=== PATIENT | male | born 1945 | race Two or more races ===

== ENCOUNTER 2020-07-29 19:00 | Inpatient (IN) | payer MEDICARE, BC ==
[~2020-07-29] VITALS: Ht 165.1 cm; Wt 86.6 kg
--- NOTE | 2020-07-29 19:30 | NUR ---
ED Nurse Note: Pt walked in from home. Walks with a steady gait. Vitals are stable on RA. axox4. Pt states that he has had abdominal pain for 5 years. Today his friend told him to go to the ER. Pt has a hx of ca. ER MD at bedside.
[2020-07-29] MEDS ORDERED: Metoclopramide 10mg/2ml Inj IVP ONE ×2 (19:45→22:15)
[2020-07-29] MEDS ORDERED: DiphenhydrAMINE 50mg/ml Inj IVP ONE (19:45)
--- NOTE | 2020-07-29 19:47 | Emergency Room Report ---
History of Present Illness General Chief Complaint: Diarrhea Source: Patient Present Illness HPI Patient presents with abdominal pain, vomiting and nausea and diarrhea. He drove from [place] where he lives to have a new physician who is on staff here. Patient had colon cancer resection 5 years ago. Since that time he has had recurrent pain and diarrhea with intermittent bleeding. He reports the pain 8/10 at this time. The pain is left lower quadrant and constant. Diarrhea is occasionally watery. In addition was mixed with blood today. This is not unusual for the patient. He has been taking loperamide. In the past he has taken a small white pill that helps him more but has run out of these. He states he does have medicine for nausea but thinks it may be Zofran. He had similar pain was evaluated at [facility]. He had labs and CT performed. According to the discharge papers results were normal. Actual CT results were not included. He was not admitted to the hospital but discharged with the diagnosis of chronic pain. The patient denies exposure to Covid positive contacts. No fevers, chills, sore throat, chest pain, palpitations, dysuria, shortness of breath, joint pain, rashes, depression, anxiety, visual changes, dizziness, headache. The patient states that Dr. Kay recommended that he come from [place] for evaluation here. Allergies: Coded Allergies: No Known Allergies (Unverified , 07/29/20) COVID-19 Screening Contact w/high risk pt: No Experienced COVID-19 symptoms?: No COVID-19 Testing performed SALES ORDER CLERK: No Patient History Past Medical History: see triage record, old chart reviewed Past Surgical History: other - colon resection Social History: Denies: smoking, alcohol use, drug use Social History Narrative Lives in [place], has an RV that he is staying in in town Reviewed Nursing Documentation: PMH: Agreed; PSxH: Agreed Nursing Documentation-PMH Hx Cancer: Yes - colon, pancreas Review of Systems All Other Systems: negative except mentioned in HPI Physical Exam Vital Signs Date Time Temp Pulse Resp B/P (MAP) Pulse Ox O2 Delivery O2 Flow Rate FiO2 07/29/20 19:18 98.2 70 24 130/75 (93) 98 Room Air Sp02 EP Interpretation: reviewed, normal General Appearance: well appearing, no apparent distress, GCS 15, non-toxic Head: normocephalic Eyes: bilateral eye normal inspection, bilateral eye PERRL, bilateral eye EOMI ENT: moist mucus membranes Neck: supple Respiratory: lungs clear, normal breath sounds Cardiovascular #1: regular rate, rhythm Cardiovascular #2: 2+ radial (R) Gastrointestinal: normal inspection, normal bowel sounds, no mass, non- distended, no guarding, no rebound, tenderness Genitourinary: no CVA tenderness Musculoskeletal: back normal, normal range of motion, gait/station normal Neurologic: alert, oriented x3, grossly normal Psychiatric: mood/affect normal Skin: no rash, warm/dry Medical Decision Making Diagnostic Impression: Primary Impression: Abdominal pain Qualified Codes: R10.32 - Left lower quadrant pain Additional Impressions: Nausea vomiting and diarrhea Acute pancreatitis Qualified Codes: K85.90 - Acute pancreatitis without necrosis or infection, unspecified ER Course Patient presents with left lower quadrant pain, nausea, vomiting and diarrhea with some passing of blood. Differential includes diverticulitis, diverticulosis, urinary tract infection, renal stone, exacerbation of chronic pain amongst others. Patient evaluated with labs, x-ray and EKG. Patient treated with IV hydration Reglan and Benadryl. EKG without injury. Chest x-ray no infiltrates. Abdomen film with surgical clips and 2 metallic shaves outside of the abdomen. White count low. CMP essentially normal with slightly low potassium. Patient initially felt better. Patient insisted on eating some food. Soon after the patient had episodes of retching and uncontrolled vomiting. Patient with repeat episodes of vomiting. Treated with Zofran and Reglan. Elevated lipase. Still soft abdomen. Admit med. Patient not heard of "pancreatitis". Treated for pain. Patient improved. Patient needs admission to the hospital for treatment of vomiting abdominal pain and elevated lipase. Laboratory Tests Test 07/29/20 19:50 07/29/20 22:20 White Blood Count 2.8 K/UL (4.8-10.8) L Red Blood Count 3.90 M/UL (4.70-6.10) L Hemoglobin 10.8 G/DL (14.2-18.0) L Hematocrit 34.2 % (42.0-52.0) L Mean Corpuscular Volume 88 FL (80-99) Mean Corpuscular Hemoglobin 27.8 PG (27.0-31.0) Mean Corpuscular Hemoglobin Concent 31.7 G/DL (32.0-36.0) L Red Cell Distribution Width 16.0 % (11.6-14.8) H Platelet Count 212 K/UL (150-450) Mean Platelet Volume 5.8 FL (6.5-10.1) L Neutrophils (%) (Auto) 70.4 % (45.0-75.0) Lymphocytes (%) (Auto) 13.1 % (20.0-45.0) L Monocytes (%) (Auto) 13.9 % (1.0-10.0) H Eosinophils (%) (Auto) 1.9 % (0.0-3.0) Basophils (%) (Auto) 0.7 % (0.0-2.0) Prothrombin Time 11.2 SEC (9.30-11.50) Prothrombin Time INR 1.0 (0.9-1.1) Activated Partial Thromboplast Time 28 SEC (23-33) Sodium Level 143 MMOL/L (136-145) Potassium Level 3.2 MMOL/L (3.5-5.1) L Chloride Level 111 MMOL/L (98-107) H Carbon Dioxide Level 23 MMOL/L (21-32) Anion Gap 9 mmol/L (5-15) Blood Urea Nitrogen 8 mg/dL (7-18) Creatinine 1.1 MG/DL (0.55-1.30) Estimated Glomerular Filtration Rate > 60 mL/min (>60) Glucose Level 125 MG/DL (74-106) H Calcium Level 8.5 MG/DL (8.5-10.1) Total Bilirubin 0.2 MG/DL (0.2-1.0) Aspartate Amino Transferase (AST) 33 U/L (15-37) Alanine Aminotransferase (ALT) 32 U/L (12-78) Alkaline Phosphatase 256 U/L (46-116) H Total Protein 6.1 G/DL (6.4-8.2) L Albumin 2.7 G/DL (3.4-5.0) L Globulin 3.4 g/dL Albumin/Globulin Ratio 0.8 (1.0-2.7) L Lipase 1927 U/L (73-393) H Urine Color Pending Urine Appearance Pending Urine pH Pending Urine Specific Clarence Pending Urine Protein Pending Urine Glucose (UA) Pending Urine Ketones Pending Urine Blood Pending Urine Nitrite Pending Urine Bilirubin Pending Urine Urobilinogen Pending Urine Leukocyte Esterase Pending EKG Diagnostic Results Rate: bradycardiac Rhythm: NSR ST Segments: no acute changes Rhythm Strip Diag. Results EP Interpretation: yes Rhythm: NSR, no PVC's, no ectopy Chest X-Ray Diagnostic Results Chest X-Ray Diagnostic Results : Chest X-Ray Ordered: Yes # of Views/Limited/Complete: 1 View Indication: Other EP Interpretation: Yes Interpretation: no consolidation, no effusion, no pneumothorax Impression: No acute disease Electronically Signed by: Electronically signed by Farhan Jacinto MD Other X-Ray Diagnostic Results Other X-Ray Diagnostic Results : X-Ray ordered: Abdomen # of Views/Limited Vs Complete: 3 View Indication: Other EP Interpretation: Yes Interpretation: nonspecific bowel gas, no sbo, other - Surgical clips Impression: No acute disease Electronically Signed by: Electronically signed by Farhan Jacinto MD Last Vital Signs Date Time Temp Pulse Resp B/P (MAP) Pulse Ox O2 Delivery O2 Flow Rate FiO2 07/29/20 23:45 Room Air 07/29/20 23:19 97.9 50 16 112/63 (79) 97 Status: improved Disposition: ADMITTED INPATIENT Condition: Serious Farhan Jacinto MD Jul 29, 2020 19:47
[2020-07-29 19:57] VITALS: BP 132/76
[2020-07-29 20:18] LABS: HEMATOCRIT 34.2 % (42.0-52.0); HEMOGLOBIN 10.8 G/DL (14.2-18.0); MEAN CORPUSCULAR VOLUME 88 FL (80-99); PLATELET COUNT 212 K/UL (150-450); WHITE BLOOD COUNT 2.8 K/UL (4.8-10.8)
[2020-07-29 20:20] LABS: BASOPHILS % (AUTO) 0.7 % (0.0-2.0); EOSINOPHILS % (AUTO) 1.9 % (0.0-3.0); LYMPHOCYTES % (AUTO) 13.1 % (20.0-45.0); MONOCYTES % (AUTO) 13.9 % (1.0-10.0); NEUTROPHILS % (AUTO) 70.4 % (45.0-75.0)
[2020-07-29 20:28] LABS: BLOOD UREA NITROGEN 8 mg/dL (7-18); POTASSIUM 3.2 MMOL/L (3.5-5.1)
--- NOTE | 2020-07-29 20:33 | NUR ---
ED Nurse Note: Pt state that he is unable to urinate. ER MD aware.
[2020-07-29 20:34] LABS: ALBUMIN 2.7 G/DL (3.4-5.0); ALBUMIN/GLOBULIN RATIO 0.8 (1.0-2.7); ALKALINE PHOSPHATASE 256 U/L (46-116)
[2020-07-29 21:02] LABS: ANION GAP 9 mmol/L (5-15); CALCIUM 8.5 MG/DL (8.5-10.1); CARBON DIOXIDE 23 MMOL/L (21-32); CHLORIDE 111 MMOL/L (98-107); CREATININE 1.1 MG/DL (0.55-1.30); SODIUM 143 MMOL/L (136-145)
[2020-07-29 21:07] LABS: ALANINE AMINOTRANSFERASE 32 U/L (12-78); ASPARTATE AMINO TRANSFERASE 33 U/L (15-37); BILIRUBIN,TOTAL 0.2 MG/DL (0.2-1.0)
[2020-07-29] MEDS ORDERED: Morphine Sulfate 4mg/ml Inj (IV USE ONLY) IVP ONE (21:30)
--- NOTE | 2020-07-29 22:28 | NUR ---
ED Nurse Note: Report given to Harshal WADE for M/S 410-2
--- NOTE | 2020-07-29 22:31 | NUR ---
ED Nurse Note: Unable to do med recon. Patient doesnt know the dosage of meds hes taking
[2020-07-29 22:50] LABS: APPEARANCE,URINE CLEAR; BILIRUBIN, URINE NEGATIVE (NEGATIVE); COLOR,URINE PALE YELLOW; GLUCOSE, URINE (UA) 4+ (NEGATIVE); KETONES,URINE NEGATIVE (NEGATIVE); LEUKOCYTE ESTERASE ,URINE NEGATIVE (NEGATIVE); NITRITE,URINE NEGATIVE (NEGATIVE); PH,URINE 5 (4.5-8.0); PROTEIN,URINE NEGATIVE (NEGATIVE); UROBILINOGEN,URINE NORMAL MG/DL (0.0-1.0)
--- NOTE | 2020-07-29 22:54 | History & Physical ---
History and Physical History & Physicial Antoine Kay MD Jul 29, 2020 22:54
--- NOTE | 2020-07-29 23:08 | NUR ---
TRANSFER TO FLOOR: Patient transferred to as ordered, per ER MD. Report given to Marvin WADE. Belongings sent with pt. PT is axox4 vitals are stable as documented.
--- NOTE | 2020-07-29 23:09 | NUR ---
NURSE NOTES: Patient came from ER via gurney. Report from Eryn WADE. A&OX4. IV site patent and intact. Skin intact. Belongings were checked. Patient lives in by himself. Bed in lowest position. Call light within reach. Will continue to monitor.
[2020-07-29 23:19] VITALS: BP 112/63
[2020-07-29] MEDS ORDERED: ASPIRIN-LOW81 MG ORAL (23:24)
[2020-07-29] MEDS ORDERED: MOTRIN IB200 M1 PO (23:25)
[2020-07-30] MEDS ORDERED: Omnipaque-300 100ml vial INJ PRN
[2020-07-30] MEDS ORDERED: Morphine Sulfate 2mg/ml Inj(IV/IM USE ONLY) IVP PRN (00:15)
[2020-07-30] MEDS: D5 1/2NS w/KCl 20mEq 1,000 ML IV SCH ×3 (00:43→20:23)
[2020-07-30 04:00] VITALS: BP 114/63
[2020-07-30] MEDS: Heparin 5000 units/ml inj SUBQ SCH ×3 (05:29→21:17)
[2020-07-30 07:00] LABS: HEMOGLOBIN 10.7 G/DL (14.2-18.0); MEAN CORPUSCULAR VOLUME 89 FL (80-99); PLATELET COUNT 206 K/UL (150-450); RED BLOOD COUNT 3.82 M/UL (4.70-6.10); RED CELL DISTRIBUTION WIDTH 16.1 % (11.6-14.8); WHITE BLOOD COUNT 3.1 K/UL (4.8-10.8)
[2020-07-30 07:12] LABS: ANION GAP 8 mmol/L (5-15); BLOOD UREA NITROGEN 8 mg/dL (7-18); CALCIUM 8.6 MG/DL (8.5-10.1); CARBON DIOXIDE 23 MMOL/L (21-32); CHLORIDE 113 MMOL/L (98-107); CHOLESTEROL 122 MG/DL (< 200); CREATININE 0.9 MG/DL (0.55-1.30); HDL CHOLESTEROL 34 MG/DL (40-60); PHOSPHORUS 2.7 MG/DL (2.5-4.9); POTASSIUM 3.7 MMOL/L (3.5-5.1); SODIUM 144 MMOL/L (136-145); TRIGLYCERIDES 41 MG/DL (30-150)
--- NOTE | 2020-07-30 07:35 | NUR ---
NURSE HAND-OFF: Important Events on Shift: Kept NPO. Patient Status: Diet: NPO Pending Orders: CT abdomen Pending Results/Labs: Pending MD notification: Latest Vital Signs: Temperature 97.5 , Pulse 51 , B/P 114 /63 , Respiratory Rate 16 , O2 SAT 96 , Room Air, O2 Flow Rate . Vital Sign Comment: Latest Carreon Fall Score: 20 Fall Risk: Low Risk Safety Measures: Call light Within Reach, Bed Alarm Zone 1, Side Rails Side Rails x2, Bed position Low and Locked. Fall Precautions: Patient Fall Education Report given to Saritha WADE.
--- NOTE | 2020-07-30 07:36 | NUR ---
NURSE NOTES: received report from MAURO Amin. patient in bed. A&Ox4, verbally responsive. no respiratory distress noted on room air. no pain at this time. Given oral contrast for CT abd, Tech will pick the patient around [address] consent signed. IV on LAC 20 running D5 1/2ns 20kcl @100/hr. NPO. skin intact. dry and warm to touch. no decubitus injuries or any other skin issued noted. bed in the lowest position and locked. call light within reach.
[2020-07-30 08:00] VITALS: BP 130/65
--- NOTE | 2020-07-30 08:29 | NUR ---
NURSE NOTES: patient has an order of CT Abd with contrast. CT asking if Doctor wants including Pelvis as well since the patient has a history of colon CA. Notified Dr. Kay and received order of CT Abd/Pel with contrast. order noted and carried out.
--- NOTE | 2020-07-30 08:30 | NUR ---
NURSE NOTES: patient has low heart rates between 46 to 50. asymptomatic. A&Ox 4, no dizziness noted. Notified Dr. mcfadden and is aware, no new order at this time.
--- NOTE | 2020-07-30 08:57 | NUR ---
CASE MANAGEMENT:REVIEW 75 YR OLD MALE DROVE FROM [facility] AND WALKED INTO ER CC: BLOODY STOOL. ABD PAIN. N/V PMH: COLON CANCER RESECTION SI: ACUTE PANCREATITIS 98.3 70 24 130/75 98% ON RA WBC-2.8 K-3.2 LIPASE+1927 IS:IV REGLAN IV PEPCID 1L NS BOLUS IV BENADRYL IV ZOFRAN IV MORPHINE CHEST XRAY ABDOMINAL XRAY : ADMITTED TO MED/SURG PLAN:' NPO CT ABD/PELVIS
--- NOTE | 2020-07-30 10:30 | Diagnostic Imaging Report ---
Procedure: XRAY Chest 1v Reason for study: Chest pain. Comparison films: None. FINDINGS: A single one view chest is obtained. Vascularity is normal. The lung qureshi are clear bilaterally. Cardiac and mediastinal silhouette are within normal limits. CP angles are sharp. The bony thorax appear unremarkable. IMPRESSION: NO ACUTE CARDIOPULMONARY DISEASE.
--- NOTE | 2020-07-30 10:32 | Diagnostic Imaging Report ---
EXAM: XRAY Abdomen 1v HISTORY: Reason For Exam: ABD PAIN COMPARISON: None. TECHNIQUE: Frontal view of the abdomen obtained. FINDINGS: There is a nonobstructed bowel gas pattern. Small surgical clip noted in the pelvis perhaps a dropped clip noted. No definite pathologic calcifications identified. There is no sign of free air. Metallic overlying artifacts noted in the left inguinal region. IMPRESSION: NO SIGN OF ACUTE DISEASE.
--- NOTE | 2020-07-30 10:50 | Diagnostic Imaging Report ---
EXAM: CT CT Abdomen Pelvis w/Contrast INDICATION: Reason For Exam: ABD PAIN. COMPARISON: None TECHNIQUE: Axial images were obtained through the abdomen pelvis with intravenous contrast. Sagittal and coronal reformats are generated. All CT scans at this facility are performed using dose modulation techniques as appropriate to a performed exam including the following: automated exposure control with adjustment of the mA and/or kV according to patient size. RADIATION DOSE: CTDIvol: 9.4 mGy DLP: 517.2 mGy-cm Dose information generated by the CT scanner is available in PACS. FINDINGS: Mild dependent atelectasis noted in both lung bases. There are several low densities identified in the caudate and right lobe of the liver. A few are circumscribed and low density resembling cysts but there are several in segment 6 and segment 7 of the liver which are not cystic. Patient does have known history of colon cancer and metastatic hepatic lesions is suspected. There is some low-density scalloping of the lateral margin right lobe of liver on images 22-25 which may reflect serosal disease as well. The spleen is homogeneous. Gallbladder is without sludge or stone and there is no wall thickening. Pancreas is mostly homogeneous. There is a focus of coarse calcification at the pancreatic head. Adrenals are normal in morphology. Multiple bilateral exophytic cysts of the kidneys noted. Postoperative changes noted near the GE junction. Small bowel loops are nondistended. Patient is status post colectomy. Anastomotic sutures noted in the region of the rectum. There is some soft tissue thickening in the presacral space most likely postoperative changes but focal recurrent tumor cannot be excluded. The appendix is not visualized. There is no free fluid or free air. No pathologic adenopathy demonstrated. Urinary bladder appears unremarkable. There is no suspicious superficial soft tissue or osseous abnormality. IMPRESSION: MULTIPLE LOW-DENSITY LESIONS IN THE LIVER, SOME OF WHICH ARE NOT SIMPLE CYSTS. WITH HISTORY OF COLON CANCER, METASTATIC HEPATIC LESIONS SUSPECTED. COARSE CALCIFICATION AT THE PANCREATIC HEAD. QUESTION HISTORY OF OLD PANCREATITIS. RENAL CYSTS. POSTOPERATIVE CHANGES NEAR THE GE JUNCTION. ALSO APPARENT COLECTOMY. SOME SOFT TISSUE THICKENING IN THE PRESACRAL SPACE MOST LIKELY POSTOPERATIVE CHANGES BUT FOCAL RECURRENT TUMOR CANNOT BE EXCLUDED.
[2020-07-30 12:00] VITALS: BP 124/58
[2020-07-30] MEDS ORDERED: Gadavist 7.5mMol/7.5ml vial IV PRN (12:00)
[2020-07-30 16:00] VITALS: BP 137/74
--- NOTE | 2020-07-30 16:04 | Consultation ---
History of Present Illness General Date patient seen: Jul 30, 2020 Reason for Hospitalization: Diarrhea Present Illness HPI This is a very pleasant 75-year-old male with history of colon cancer status post subtotal colectomy what believed to be a J-pouch approximately 5 years ago with potential diverting ostomy in the past who presented to [facility] complaining abdominal pain nausea vomiting and diarrhea. Patient states that ever since his colectomy he has had diarrhea multiple episodes a day. Intermittently has incontinence as well as he demonstrates soiled adult diapers. States it has been very uncomfortable for him and he has some anal pain from it as well. States he has been to multiple different facilities including [place] for evaluation and side work-up and currently is not been able to receive care. Came to [facility] looking for new physicians to care for him. States he lives in [place] and drove himself over here for this evaluation. States he did complete a course of chemotherapy unsure of how long cannot remember who his cancer doctor was. Otherwise has been eating well and doing well. States his friends are helping him try to find new physicians. In ED identified to have pancreatitis admitted further care and management. Surgery called to evaluate for abdominal pain pancreatitis. Patient seen, patient evaluate, chart reviewed Allergies: Coded Allergies: No Known Allergies (Unverified , 07/29/20) COVID-19 Screening Contact w/high risk pt: No Experienced COVID-19 symptoms?: No Medication History Scheduled Aspirin (Aspirin EC), 81 MG ORAL DAILY, (Reported) Scheduled PRN Ibuprofen (Motrin Ib), 200 MG PO for For Pain, (Reported) Patient History History Provided By: Patient, Medical Record, PMD Healthcare decision maker Resuscitation status Advanced Directive on File Past Medical/Surgical History Past Medical/Surgical History: (1) Acute pancreatitis (2) Abdominal pain (3) Nausea vomiting and diarrhea Review of Systems Review of Symptoms General ROS: no weight loss or fever Psychological ROS: no depression or mood changes, no memory loss Ophthalmic ROS: no visual changes or eye irritation ENT ROS: no nasal congestion, hearing loss, dizziness Allergy and Immunology ROS: no allergic symptoms or urticaria Hematological and Lymphatic ROS: no swollen glands, unusual bleeding or bruising Endocrine ROS: no polyuria, polydipsia, weight changes, temperature intolerance Respiratory ROS: no cough, shortness of breath, or wheezing Cardiovascular ROS: no chest pain or dyspnea on exertion Gastrointestinal ROS: + abdominal pain, bright red blood in stool. Musculoskeletal ROS: no myalgias or arthralgias Neurological ROS: no TIA or stroke symptoms Dermatological ROS: no new or changing skin lesions, rashes or pruritis Physical Exam Physical Exam General appearance: alert, cooperative, no distress, appears stated age Head: Normocephalic, without obvious abnormality, atraumatic Eyes: conjunctivae/corneas clear. PERRL, EOM's intact. Fundi benign Throat: Lips, mucosa, and tongue normal. Teeth and gums normal Neck: supple, symmetrical, trachea midline, no adenopathy, thyroid: not enlarged, symmetric, no tenderness/mass/nodules, no carotid bruit and no JVD Lungs: clear to auscultation bilaterally Heart: regular rate and rhythm, S1, S2 normal, no murmur, click, rub or gallop Abdomen: soft, non-tender. Bowel sounds normal. No masses, no organomegaly Extremities: extremities normal, atraumatic, no cyanosis or edema Pulses: 2+ and symmetric Skin: Skin color, texture, turgor normal. No rashes or lesions Neurologic: Grossly normal Last 24 Hour Vital Signs Date Time Temp Pulse Resp B/P (MAP) Pulse Ox O2 Delivery O2 Flow Rate FiO2 07/30/20 12:00 97.7 62 19 124/58 (80) 97 07/30/20 09:00 Room Air 07/30/20 08:00 97.4 46 18 130/65 (86) 100 07/30/20 04:00 97.5 51 16 114/63 (80) 96 07/29/20 23:45 Room Air 07/29/20 23:31 Room Air 07/29/20 23:19 97.9 50 16 112/63 (79) 97 07/29/20 22:45 98.2 75 16 132/82 99 Room Air 07/29/20 22:02 98.0 07/29/20 19:57 98.0 75 22 132/76 98 Room Air 07/29/20 19:18 98.2 70 24 130/75 (93) 98 Room Air Intake and Output 07/29/20 07/30/20 19:00 07:00 Intake Total 600 ml Output Total 270 ml Balance 330 ml Intake IV Total 600 ml Output Urine Total 270 ml # Voids 1 Laboratory Tests Test 07/29/20 19:50 07/29/20 22:20 07/30/20 05:30 White Blood Count 2.8 K/UL (4.8-10.8) L 3.1 K/UL (4.8-10.8) L Red Blood Count 3.90 M/UL (4.70-6.10) L 3.82 M/UL (4.70-6.10) L Hemoglobin 10.8 G/DL (14.2-18.0) L 10.7 G/DL (14.2-18.0) L Hematocrit 34.2 % (42.0-52.0) L 34.0 % (42.0-52.0) L Mean Corpuscular Volume 88 FL (80-99) 89 FL (80-99) Mean Corpuscular Hemoglobin 27.8 PG (27.0-31.0) 28.1 PG (27.0-31.0) Mean Corpuscular Hemoglobin Concent 31.7 G/DL (32.0-36.0) L 31.6 G/DL (32.0-36.0) L Red Cell Distribution Width 16.0 % (11.6-14.8) H 16.1 % (11.6-14.8) H Platelet Count 212 K/UL (150-450) 206 K/UL (150-450) Mean Platelet Volume 5.8 FL (6.5-10.1) L 6.2 FL (6.5-10.1) L Neutrophils (%) (Auto) 70.4 % (45.0-75.0) % (45.0-75.0) Lymphocytes (%) (Auto) 13.1 % (20.0-45.0) L % (20.0-45.0) Monocytes (%) (Auto) 13.9 % (1.0-10.0) H % (1.0-10.0) Eosinophils (%) (Auto) 1.9 % (0.0-3.0) % (0.0-3.0) Basophils (%) (Auto) 0.7 % (0.0-2.0) % (0.0-2.0) Prothrombin Time 11.2 SEC (9.30-11.50) Prothromb Time International Ratio 1.0 (0.9-1.1) Activated Partial Thromboplast Time 28 SEC (23-33) Sodium Level 143 MMOL/L (136-145) 144 MMOL/L (136-145) Potassium Level 3.2 MMOL/L (3.5-5.1) L 3.7 MMOL/L (3.5-5.1) Chloride Level 111 MMOL/L (98-107) H 113 MMOL/L (98-107) H Carbon Dioxide Level 23 MMOL/L (21-32) 23 MMOL/L (21-32) Anion Gap 9 mmol/L (5-15) 8 mmol/L (5-15) Blood Urea Nitrogen 8 mg/dL (7-18) 8 mg/dL (7-18) Creatinine 1.1 MG/DL (0.55-1.30) 0.9 MG/DL (0.55-1.30) Estimat Glomerular Filtration Rate > 60 mL/min (>60) > 60 mL/min (>60) Glucose Level 125 MG/DL (74-106) H 90 MG/DL (74-106) Calcium Level 8.5 MG/DL (8.5-10.1) 8.6 MG/DL (8.5-10.1) Total Bilirubin 0.2 MG/DL (0.2-1.0) Aspartate Amino Transf (AST/SGOT) 33 U/L (15-37) Alanine Aminotransferase (ALT/SGPT) 32 U/L (12-78) Alkaline Phosphatase 256 U/L (46-116) H Total Protein 6.1 G/DL (6.4-8.2) L Albumin 2.7 G/DL (3.4-5.0) L Globulin 3.4 g/dL Albumin/Globulin Ratio 0.8 (1.0-2.7) L Lipase 1927 U/L (73-393) H 1279 U/L (73-393) H Urine Color Pale yellow Urine Appearance Clear Urine pH 5 (4.5-8.0) Urine Specific [place] 1.015 (1.005-1.035) Urine Protein Negative (NEGATIVE) Urine Glucose (UA) 4+ (NEGATIVE) H Urine Ketones Negative (NEGATIVE) Urine Blood Negative (NEGATIVE) Urine Nitrite Negative (NEGATIVE) Urine Bilirubin Negative (NEGATIVE) Urine Urobilinogen Normal MG/DL (0.0-1.0) Urine Leukocyte Esterase Negative (NEGATIVE) Differential Total Cells Counted 100 Neutrophils % (Manual) 70 % (45-75) Lymphocytes % (Manual) 19 % (20-45) L Monocytes % (Manual) 9 % (1-10) Eosinophils % (Manual) 2 % (0-3) Basophils % (Manual) 0 % (0-2) Band Neutrophils 0 % (0-8) Platelet Estimate Adequate Platelet Morphology Normal Hypochromasia 1+ Anisocytosis 1+ Phosphorus Level 2.7 MG/DL (2.5-4.9) Magnesium Level 2.0 MG/DL (1.8-2.4) Triglycerides Level 41 MG/DL (30-150) Cholesterol Level 122 MG/DL (< 200) LDL Cholesterol 81 mg/dL (<100) HDL Cholesterol 34 MG/DL (40-60) L Cholesterol/HDL Ratio 3.6 (3.3-4.4) Height (Feet): 5 Height (Inches): 7.00 Weight (Pounds): 188 Medications Current Medications Medications (Trade) Dose Ordered Sig/Stacy Route PRN Reason Start Time Stop Time Status Last Admin Dose Admin Acetaminophen (Tylenol) 650 mg Q6H PRN ORAL Temp >100.5 07/30/20 00:15 08/29/20 00:14 Barium Sulfate (Readi-Cat 2) 450 ml NOW PRN ORAL Radiology Procedure 07/30/20 00:00 07/31/20 23:59 Dextrose/ Electrolytes 1,000 ml @ 100 mls/hr Q10H IV 07/30/20 00:15 08/29/20 00:14 07/30/20 10:23 Gadobutrol (Gadavist) 7.5 mmol ONCE PRN IV radiology procedure 07/30/20 12:00 08/01/20 11:59 Heparin Sodium (Porcine) (Heparin 5000 units/ml) 5,000 units EVERY 8 HOURS SUBQ 07/30/20 06:00 09/13/20 05:59 07/30/20 15:21 Iohexol (OMNIPAQUE-300 100ml) 100 ml NOW PRN INJ Radiology Procedure 07/30/20 00:00 07/31/20 23:59 Loperamide HCl (Imodium) 2 mg Q4H PRN ORAL Diarrhea 07/30/20 16:00 08/29/20 15:59 07/30/20 15:54 Morphine Sulfate (Morphine Sulfate) 2 mg Q4H PRN IVP FOR MODERATE PAIN 4 TO 6 07/30/20 00:15 08/06/20 00:14 Morphine Sulfate (Morphine Sulfate) 4 mg Q4H PRN IVP Severe Pain (Pain Scale 7-10) 07/30/20 00:15 08/06/20 00:14 Ondansetron HCl (Zofran) 4 mg Q4H PRN IVP Nausea & Vomiting 07/30/20 00:15 08/29/20 00:14 Assessment/Plan Problem List: (1) Acute pancreatitis Assessment & Plan: 75-year-old male with pancreatitis. No EtOH history. Seems to be having intermittent episodes of pancreatitis as states that the symptoms not as first time and is not a pancreatitis in the past. States that he was told potentially in the past he may have pancreatic cancer but is unaware. Does not have any of his medical records with him and is a poor historian in the details. Elevated lipase trending down with IV fluids. Pain improving. Tolerating diet. No acute surgical intervention planned at this time. Conservative management of medical acute pancreatitis. ICD Codes: K85.90 - Acute pancreatitis without necrosis or infection, unspecified SNOMED: 363848455 Qualifiers: Qualified Codes: K85.90 - Acute pancreatitis without necrosis or infection, unspecified (2) Abdominal pain Assessment & Plan: Patient complaining of abdominal pain likely related to pancreatitis also complaining of pain with multiple episodes of diarrhea and some anal pain. Patient with history of colon cancer status post subtotal colectomy with what seems to be a J-pouch having persistent diarrhea multiple episodes a day followed by potential incontinence as well described by patient. Afebrile hemodynamic stable otherwise okay. Abdominal exam fairly benign. Prior incisions noted well-healed. Patient is interested in having a evaluation for a continent ileostomy. Dr. Kenn Dalton will evaluate patient as patient has researched him prior and has come to this facility to be seen by him as well. CT scan reviewed. Patient has multiple liver lesions that are concerning for potential metastatic disease. MRI ordered. Will need further work-up and management which can be done in outpatient setting by patient's PCP and oncol ogist once patient's pancreatitis is improved. Thank you will follow with recommendations Mild dependent atelectasis noted in both lung bases. There are several low densities identified in the caudate and right lobe of the liver. A few are circumscribed and low density resembling cysts but there are several in segment 6 and segment 7 of the liver which are not cystic. Patient does have known history of colon cancer and metastatic hepatic lesions is suspected. There is some low-density scalloping of the lateral margin right lobe of liver on images 22-25 which may reflect serosal disease as well. The spleen is homogeneous. Gallbladder is without sludge or stone and there is no wall thickening. Pancreas is mostly homogeneous. There is a focus of coarse calcification at the pancreatic head. Adrenals are normal in morphology. Multiple bilateral exophytic cysts of the kidneys noted. Postoperative changes noted near the GE junction. Small bowel loops are nondistended. Patient is status post colectomy. Anastomotic sutures noted in the region of the rectum. There is some soft tissue thickening in the presacral space most likely postoperative changes but focal recurrent tumor cannot be excluded. The appendix is not visualized. There is no free fluid or free air. No pathologic adenopathy demonstrated. Urinary bladder appears unremarkable. There is no suspicious superficial soft tissue or osseous abnormality. IMPRESSION: MULTIPLE LOW-DENSITY LESIONS IN THE LIVER, SOME OF WHICH ARE NOT SIMPLE CYSTS. WITH HISTORY OF COLON CANCER, METASTATIC HEPATIC LESIONS SUSPECTED. COARSE CALCIFICATION AT THE PANCREATIC HEAD. QUESTION HISTORY OF OLD PANCREATITIS. RENAL CYSTS. POSTOPERATIVE CHANGES NEAR THE GE JUNCTION. ALSO APPARENT COLECTOMY. SOME SOFT TISSUE THICKENING IN THE PRESACRAL SPACE MOST LIKELY POSTOPERATIVE CHANGES BUT FOCAL RECURRENT TUMOR CANNOT BE EXCLUDED. ICD Codes: R10.9 - Unspecified abdominal pain SNOMED: 13955609 Qualifiers: Qualified Codes: R10.32 - Left lower quadrant pain (3) Nausea vomiting and diarrhea ICD Codes: R11.2 - Nausea with vomiting, unspecified; R19.7 - Diarrhea, unspecified SNOMED: [id number] Alfredo Phillip Jul 30, 2020 16:04
[2020-07-30] MEDS ORDERED: LOMOTIL TABLET1 EACH ORAL (16:31)
[2020-07-30] MEDS ORDERED: IBUPROFEN600 M1 ORAL (16:31)
[2020-07-30] MEDS ORDERED: CLOTRIMAZOLE15 GM TOPIC (16:31)
[2020-07-30] MEDS ORDERED: ZOLPIDEM TARTRAT5 MG ORAL (16:31)
[2020-07-30] MEDS ORDERED: CHOLESTYRAMINE R5 GM MC (16:31)
[2020-07-30] MEDS ORDERED: FUROSEMIDE40 MG ORAL (16:31)
[2020-07-30] MEDS ORDERED: TRAMADOL HCL50 MG ORAL (16:31)
[2020-07-30] MEDS ORDERED: HYDROCORTISONE-57 GM TP (16:31)
[2020-07-30] MEDS ORDERED: NYSTATIN-TRIAMC15 G2 TP (16:31)
[2020-07-30] MEDS ORDERED: ZOFRAN ODT8 MG ORAL (16:31)
[2020-07-30] MEDS ORDERED: ANECREAM5 GM TP (16:31)
--- NOTE | 2020-07-30 16:43 | Internal Med Progress Note ---
Subjective Physician Name Antoine Kay Attending Physician Antoine Kay MD Current Medications Medications (Trade) Dose Ordered Sig/Stacy Route PRN Reason Start Time Stop Time Status Last Admin Dose Admin Acetaminophen (Tylenol) 650 mg Q6H PRN ORAL Temp >100.5 07/30/20 00:15 08/29/20 00:14 Barium Sulfate (Readi-Cat 2) 450 ml NOW PRN ORAL Radiology Procedure 07/30/20 00:00 07/31/20 23:59 Dextrose/ Electrolytes 1,000 ml @ 100 mls/hr Q10H IV 07/30/20 00:15 08/29/20 00:14 07/30/20 10:23 Gadobutrol (Gadavist) 7.5 mmol ONCE PRN IV radiology procedure 07/30/20 12:00 08/01/20 11:59 Heparin Sodium (Porcine) (Heparin 5000 units/ml) 5,000 units EVERY 8 HOURS SUBQ 07/30/20 06:00 09/13/20 05:59 07/30/20 15:21 Iohexol (OMNIPAQUE-300 100ml) 100 ml NOW PRN INJ Radiology Procedure 07/30/20 00:00 07/31/20 23:59 Loperamide HCl (Imodium) 2 mg Q4H PRN ORAL Diarrhea 07/30/20 16:00 08/29/20 15:59 07/30/20 15:54 Morphine Sulfate (Morphine Sulfate) 2 mg Q4H PRN IVP FOR MODERATE PAIN 4 TO 6 07/30/20 00:15 08/06/20 00:14 Morphine Sulfate (Morphine Sulfate) 4 mg Q4H PRN IVP Severe Pain (Pain Scale 7-10) 07/30/20 00:15 08/06/20 00:14 Ondansetron HCl (Zofran) 4 mg Q4H PRN IVP Nausea & Vomiting 07/30/20 00:15 08/29/20 00:14 Allergies: Coded Allergies: No Known Allergies (Unverified , 07/29/20) Subjective awake, alert, responsive, denies any chest pain or abdominal pain, tolerated oral intake. Objective Last Vital Signs Date Time Temp Pulse Resp B/P (MAP) Pulse Ox O2 Delivery O2 Flow Rate FiO2 07/30/20 16:00 97.5 55 18 137/74 (95) 98 07/30/20 09:00 Room Air Laboratory Tests Test 07/29/20 19:50 07/29/20 22:20 07/30/20 05:30 White Blood Count 2.8 K/UL (4.8-10.8) L 3.1 K/UL (4.8-10.8) L Red Blood Count 3.90 M/UL (4.70-6.10) L 3.82 M/UL (4.70-6.10) L Hemoglobin 10.8 G/DL (14.2-18.0) L 10.7 G/DL (14.2-18.0) L Hematocrit 34.2 % (42.0-52.0) L 34.0 % (42.0-52.0) L Mean Corpuscular Volume 88 FL (80-99) 89 FL (80-99) Mean Corpuscular Hemoglobin 27.8 PG (27.0-31.0) 28.1 PG (27.0-31.0) Mean Corpuscular Hemoglobin Concent 31.7 G/DL (32.0-36.0) L 31.6 G/DL (32.0-36.0) L Red Cell Distribution Width 16.0 % (11.6-14.8) H 16.1 % (11.6-14.8) H Platelet Count 212 K/UL (150-450) 206 K/UL (150-450) Mean Platelet Volume 5.8 FL (6.5-10.1) L 6.2 FL (6.5-10.1) L Neutrophils (%) (Auto) 70.4 % (45.0-75.0) % (45.0-75.0) Lymphocytes (%) (Auto) 13.1 % (20.0-45.0) L % (20.0-45.0) Monocytes (%) (Auto) 13.9 % (1.0-10.0) H % (1.0-10.0) Eosinophils (%) (Auto) 1.9 % (0.0-3.0) % (0.0-3.0) Basophils (%) (Auto) 0.7 % (0.0-2.0) % (0.0-2.0) Prothrombin Time 11.2 SEC (9.30-11.50) Prothromb Time International Ratio 1.0 (0.9-1.1) Activated Partial Thromboplast Time 28 SEC (23-33) Sodium Level 143 MMOL/L (136-145) 144 MMOL/L (136-145) Potassium Level 3.2 MMOL/L (3.5-5.1) L 3.7 MMOL/L (3.5-5.1) Chloride Level 111 MMOL/L (98-107) H 113 MMOL/L (98-107) H Carbon Dioxide Level 23 MMOL/L (21-32) 23 MMOL/L (21-32) Anion Gap 9 mmol/L (5-15) 8 mmol/L (5-15) Blood Urea Nitrogen 8 mg/dL (7-18) 8 mg/dL (7-18) Creatinine 1.1 MG/DL (0.55-1.30) 0.9 MG/DL (0.55-1.30) Estimat Glomerular Filtration Rate > 60 mL/min (>60) > 60 mL/min (>60) Glucose Level 125 MG/DL (74-106) H 90 MG/DL (74-106) Calcium Level 8.5 MG/DL (8.5-10.1) 8.6 MG/DL (8.5-10.1) Total Bilirubin 0.2 MG/DL (0.2-1.0) Aspartate Amino Transf (AST/SGOT) 33 U/L (15-37) Alanine Aminotransferase (ALT/SGPT) 32 U/L (12-78) Alkaline Phosphatase 256 U/L (46-116) H Total Protein 6.1 G/DL (6.4-8.2) L Albumin 2.7 G/DL (3.4-5.0) L Globulin 3.4 g/dL Albumin/Globulin Ratio 0.8 (1.0-2.7) L Lipase 1927 U/L (73-393) H 1279 U/L (73-393) H Urine Color Pale yellow Urine Appearance Clear Urine pH 5 (4.5-8.0) Urine Specific [place] 1.015 (1.005-1.035) Urine Protein Negative (NEGATIVE) Urine Glucose (UA) 4+ (NEGATIVE) H Urine Ketones Negative (NEGATIVE) Urine Blood Negative (NEGATIVE) Urine Nitrite Negative (NEGATIVE) Urine Bilirubin Negative (NEGATIVE) Urine Urobilinogen Normal MG/DL (0.0-1.0) Urine Leukocyte Esterase Negative (NEGATIVE) Differential Total Cells Counted 100 Neutrophils % (Manual) 70 % (45-75) Lymphocytes % (Manual) 19 % (20-45) L Monocytes % (Manual) 9 % (1-10) Eosinophils % (Manual) 2 % (0-3) Basophils % (Manual) 0 % (0-2) Band Neutrophils 0 % (0-8) Platelet Estimate Adequate Platelet Morphology Normal Hypochromasia 1+ Anisocytosis 1+ Phosphorus Level 2.7 MG/DL (2.5-4.9) Magnesium Level 2.0 MG/DL (1.8-2.4) Triglycerides Level 41 MG/DL (30-150) Cholesterol Level 122 MG/DL (< 200) LDL Cholesterol 81 mg/dL (<100) HDL Cholesterol 34 MG/DL (40-60) L Cholesterol/HDL Ratio 3.6 (3.3-4.4) Intake and Output 07/29/20 07/30/20 19:00 07:00 Intake Total 600 ml Output Total 270 ml Balance 330 ml Intake IV Total 600 ml Output Urine Total 270 ml # Voids 1 Objective General: No acute distress, awake and alert HEENT: NCAT, sclera anicteric, PERRL, EOMI. Neck: Supple, no significant jugular venous distention, Lungs: Good inspiratory effort, clear to auscultation bilaterally, no Wheeze or Rales. Heart: Regular rate and rhythm, normal S1/S2, no murmurs/gallops Abdomen: soft, less Epigastric tender, nondistended. Normoactive bowel sounds. / Rectal: Refused and deferred. Extremities: No Cyanosis , clubbing or edema. Neuro: A&O x 3, Able to move all extremities Skin: warm, no rashes or lesions Psych: Normal mood and affect Assessment/Plan Assessment/Plan Acute pancreatitis History of colon cancer status post resection. Liver masses/lesion possible metastatic disease. Plan: Advance diet as tolerated. Follow-up with gastroenterology recommendation. Monitor laboratory. DVT prophylaxis heparin subcu. CODE STATUS is full code. Antoine Kay MD Jul 30, 2020 16:43
--- NOTE | 2020-07-30 16:59 | Diagnostic Imaging Report ---
EXAM: MRI MRI Abdomen wo/w Contrast TECHNIQUE: MR examination of the abdomen includes coronal T1 and fat-suppressed T2, axial T1 in and out of phase spoiled gradient sequences, and T2 sequences with and without fat suppression. Coronal 3-D MRCP sequence also obtained. Following administration of contrast, additional axial and coronal T1 images with fat suppression obtained. CLINICAL HISTORY: Abdominal pain. History of colon cancer and hepatic lesions. COMPARISON: CT abdomen pelvis 07/30/2020 FINDINGS: Findings are similar to that noted on prior CT. There are several lesions identified in the liver. There is only one lesion in the caudate lobe which demonstrates typical appearance of a simple cyst. It is circumscribed with smooth margin and fluid intensity on all sequences without enhancement. The other lesions identified in segments 6 and 7 of the right lobe of the liver are not a simple cyst by MR criteria. No fluid intensity noted on T2 images. They show diminished enhancement compared to adjacent liver parenchyma on postcontrast images. These vary in size with a few which are barely perceptible 2 largest measuring 1.8 cm in segment 6. With the patient's history, these are suspicious for metastatic disease. Slight scalloping of the lateral margin of the right lobe of the liver noted and there is suggestion of slight asymmetric enhancement of the underlying parenchyma noted. Spleen is homogeneous. Tiny gallstone noted layering in the gallbladder. There is no intrahepatic or extrahepatic ductal dilatation. There is slight prominence of the pancreatic duct near the neck region but no discrete parenchymal pancreatic lesion identified. Adrenals are normal. There are multiple bilateral renal cysts. There is no signs of bowel distention. No ascites demonstrated. There is no adenopathy noted. Visualized portions of the lumbar spine appear unremarkable. IMPRESSION: MULTIPLE HEPATIC LESIONS NOTED, ONLY ONE OF WHICH IN THE CAUDATE LOBE APPEARS TO BE A SIMPLE CYST. THE OTHER LESIONS DO NOT MEET MR CRITERIA FOR SIMPLE CYST AND METASTATIC DISEASE SHOULD BE CONSIDERED GIVEN THE PATIENT'S CLINICAL HISTORY. CONSIDER PET/CT FOR CONFIRMATION IF CLINICALLY INDICATED. TINY GALLSTONE. SLIGHT PROMINENCE OF PANCREATIC DUCT BUT NO DISCRETE PANCREATIC LESION SEEN PRESENTLY. RENAL CYSTS.
--- NOTE | 2020-07-30 19:07 | NUR ---
NURSE HAND-OFF: Important Events on Shift:MRI ABD, CT abd/Pelv. IV hydration. diarrhea medication prn Patient Status: stable.chronic diarrhea Diet: full liquid Pending Orders: n/a Pending Results/Labs:n/a Pending MD notification:n/a Latest Vital Signs: Temperature 97.5 , Pulse 55 , B/P 137 /74 , Respiratory Rate 18 , O2 SAT 98 , Room Air, O2 Flow Rate . Vital Sign Comment: stable Latest Carreon Fall Score: 20 Fall Risk: Low Risk Safety Measures: Call light Within Reach, Bed Alarm Zone 1, Side Rails Side Rails x2, Bed position Low and Locked. Fall Precautions: Patient Fall Education Report given to CECY Jay..
[2020-07-30 20:00] VITALS: BP 141/70
--- NOTE | 2020-07-30 20:00 | NUR ---
NURSE NOTES: RECEIVED PATIENT AMBULATING IN ROOM WITH IV POLE, PATIENT ALERT/ORIENTED X4, VERBALLY RESPONSIVE, DENIES PAIN. NO SIGNS AND SYMPTOMS OF ACUTE CARDIO RESPIRATORY DISTRESS/SHORTNESS OF BREATH, DENIES CHEST PAIN, NO EDEMA NOTED. IV INTACT TO LEFT AC/GAUGE 20, TOLERATING IV FLUIDS, NO REDNESS/SWELLING NOTED TO SITE. DENIES DIARRHEA/N/V. ENCOURAGED PATIENT TO UTILIZE CALL LIGHT FOR ASSISTANCE, VERBALIZED UNDERSTANDING, CONTINUE WITH CURRENT PLAN OF CARE. NAD.
[2020-07-30 20:39] VITALS: BP 141/70
--- NOTE | 2020-07-30 20:57 | NUR ---
NURSE NOTES: Received report from Acacia SAM, patient is ambulatory in his room, awake, alert, oriented x4, IV site is clean dry and intact, will continue to monitor for safety and comfort.
[2020-07-30] MEDS: Zolpidem 5mg tab ORAL PRN (21:17)
[2020-07-31 00:14] VITALS: BP 135/74
[2020-07-31 04:00] VITALS: BP 125/65
[2020-07-31] MEDS: D5 1/2NS w/KCl 20mEq 1,000 ML IV SCH ×3 (05:40→23:29)
[2020-07-31] MEDS: Heparin 5000 units/ml inj SUBQ SCH ×3 (05:40→22:45)
--- NOTE | 2020-07-31 07:09 | NUR ---
NURSE HAND-OFF: Important Events on Shift: refused am labs and heparin injection in am Patient Status: Full code Diet:full liquid Pending Orders: Pending Results/Labs: Pending MD notification: Latest Vital Signs: Temperature 98.3 , Pulse 56 , B/P 125 /65 , Respiratory Rate 16 , O2 SAT 98 , Room Air, O2 Flow Rate . Vital Sign Comment: Latest Carreon Fall Score: 20 Fall Risk: Low Risk Safety Measures: Call light Within Reach, Bed Alarm Zone 1, Side Rails Side Rails x2, Bed position Low and Locked. Fall Precautions: Patient Fall Education Report given to Eddie WADE Addendum: 07/31/20 at 0712 by NUBIA URIARTE RN report is given to Saritha WADE
[2020-07-31 08:00] VITALS: BP 145/71
--- NOTE | 2020-07-31 08:03 | NUR ---
NURSE NOTES: received report from MAURO Brooks. patient in bed. A&OX4 verbally responsive. no respiratory distress on room air. no pain at this time. chronic diarrhea. NO N/V. IV on LAC 20g running D5 1/2ns@100/hr. tolerated well with full liquid diet. Patient is ambulatory steady gait. patient refused AM lab. bed in the lowest position and locked. call light within reach, will continue to provide plan of care.
--- NOTE | 2020-07-31 08:48 | NUR ---
RD ASSESSMENT & RECOMMENDATIONS SEE CARE ACTIVITY FOR COMPLETE ASSESSMENT DAILY ESTIMATED NEEDS: Needs based on Pancreatitis 71.8kg 25-30 kcals/kg 1500-3662 total kcals 1-1.5 g protein/kg 72-108 g total protein 25-30 mL/kg 9425-8856 total fluid mLs NUTRITION DIAGNOSIS: Altered nutrition related lab values r/t clinical status as evidenced by elevated lipase (trending down now 1279), uglu 4+ on adm CURRENT DIET: Full liquid diet PO DIET RECOMMENDATIONS: Low Na/ Low Fat diet/ Low Fiber ADDITIONAL RECOMMENDATIONS: 1) Check HgA1C 2) Advance diet as tolerated Monitor tolerance 3) Rec bedside BG checks/ niss
[2020-07-31 09:23] LABS: BASOPHILS % (AUTO) 0.8 % (0.0-2.0); EOSINOPHILS % (AUTO) 2.5 % (0.0-3.0); HEMATOCRIT 37.2 % (42.0-52.0); HEMOGLOBIN 11.7 G/DL (14.2-18.0); LYMPHOCYTES % (AUTO) 12.1 % (20.0-45.0); MEAN CORPUSCULAR VOLUME 88 FL (80-99); MONOCYTES % (AUTO) 13.2 % (1.0-10.0); NEUTROPHILS % (AUTO) 71.4 % (45.0-75.0); PLATELET COUNT 210 K/UL (150-450); RED BLOOD COUNT 4.24 M/UL (4.70-6.10); WHITE BLOOD COUNT 3.5 K/UL (4.8-10.8)
[2020-07-31 09:53] LABS: ALANINE AMINOTRANSFERASE 26 U/L (12-78); ALBUMIN 2.9 G/DL (3.4-5.0); ALBUMIN/GLOBULIN RATIO 0.8 (1.0-2.7); ALKALINE PHOSPHATASE 264 U/L (46-116); AMYLASE 147 U/L (25-115); ANION GAP 6 mmol/L (5-15); ASPARTATE AMINO TRANSFERASE 33 U/L (15-37); BILIRUBIN,TOTAL 0.5 MG/DL (0.2-1.0); BLOOD UREA NITROGEN 5 mg/dL (7-18); CARBON DIOXIDE 27 MMOL/L (21-32); CHLORIDE 109 MMOL/L (98-107); CHOLESTEROL 136 MG/DL (< 200); HDL CHOLESTEROL 34 MG/DL (40-60); POTASSIUM 3.7 MMOL/L (3.5-5.1); SODIUM 142 MMOL/L (136-145); TRIGLYCERIDES 59 MG/DL (30-150)
--- NOTE | 2020-07-31 11:48 | NUR ---
NURSE NOTES: patient was seen by . MD will put new orders for the patient.
[2020-07-31 12:00] VITALS: BP 138/75
--- NOTE | 2020-07-31 12:02 | General Progress Note ---
Subjective ROS Limited/Unobtainable: Yes Allergies: Coded Allergies: No Known Allergies (Unverified , 07/29/20) Objective Last 24 Hour Vital Signs Date Time Temp Pulse Resp B/P (MAP) Pulse Ox O2 Delivery O2 Flow Rate FiO2 07/31/20 09:00 Room Air 07/31/20 08:00 97.6 58 18 145/71 (95) 97 07/31/20 04:00 98.3 56 16 125/65 (85) 98 07/31/20 00:14 98.3 56 16 135/74 (94) 98 07/30/20 21:16 Room Air 07/30/20 20:39 97.5 50 16 141/70 (93) 97 07/30/20 20:00 97.5 50 16 141/70 (93) 100 07/30/20 16:00 97.5 55 18 137/74 (95) 98 Intake and Output 07/30/20 07/31/20 19:00 07:00 Intake Total 1820 ml 100 ml Balance 1820 ml 100 ml Intake Oral 720 ml IV Total 1100 ml 100 ml # Voids 5 4 # Bowel Movements 6 Laboratory Tests 07/31/20 09:10: White Blood Count 3.5L, Red Blood Count 4.24L, Hemoglobin 11.7L, Hematocrit 37.2L, Mean Corpuscular Volume 88, Mean Corpuscular Hemoglobin 27.6, Mean Corpuscular Hemoglobin Concent 31.4L, Red Cell Distribution Width 16.0H, Platelet Count 210, Mean Platelet Volume 5.7L, Neutrophils (%) (Auto) 71.4, Lymphocytes (%) (Auto) 12.1L, Monocytes (%) (Auto) 13.2H, Eosinophils (%) (Auto) 2.5, Basophils (%) (Auto) 0.8, Sodium Level 142, Potassium Level 3.7, Chloride Level 109H, Carbon Dioxide Level 27, Anion Gap 6, Blood Urea Nitrogen 5L, Creatinine 1.0, Estimat Glomerular Filtration Rate > 60, Glucose Level 125H, Calcium Level 9.0, Total Bilirubin 0.5, Aspartate Amino Transf (AST/SGOT) 33, Alanine Aminotransferase (ALT/SGPT) 26, Alkaline Phosphatase 264H, Total Protein 6.6, Albumin 2.9L, Globulin 3.7, Albumin/Globulin Ratio 0.8L, Triglycerides Level 59, Cholesterol Level 136, LDL Cholesterol 85, HDL Cholesterol 34L, Cholesterol/HDL Ratio 4.0, Amylase Level 147H, Lipase 848H, Carcinoembryonic Antigen [Pending], CA 19-9 Antigen [Pending] Height (Feet): 5 Height (Inches): 7.00 Weight (Pounds): 188 General Appearance: no apparent distress EENT: normal ENT inspection Neck: supple Cardiovascular: normal rate Respiratory/Chest: decreased breath sounds Abdomen: normal bowel sounds, non tender, soft Extremities: non-tender Assessment/Plan Assessment/Plan: pancreatitis h/o colon CA liver lesions ? mets fu tumor markers plan colonoscopy on Monday advance diet pain control Abimael Alston MD Jul 31, 2020 12:02
--- NOTE | 2020-07-31 12:25 | General Progress Note ---
Progress Note Progress Note Chart reviewed, discussed current status with patient. 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 I encouraged him to meet with an Oncologist in [place] where he lives. Kenn Dalton MD Jul 31, 2020 12:25
--- NOTE | 2020-07-31 13:57 | NUR ---
CASE MANAGEMENT:REVIEW 07/31/20 SI: ACUTE PANCREATITIS COLON CANCER. MULTIPLE HEPATIC LESIONS 97.9 49 16 138/75 94% ON RA WBC-3.5 H/H-11.7/37.2 GLUCOSE+125 LIPASE+848 IS: IVF@100/HR GOLYTELY PO X1 HEPARIN SQ Q8HR : MED/SURG STATUS DCP: RETURN TO SIDNEY PLAN: COLONOSCOPY???
--- NOTE | 2020-07-31 14:41 | Surgery Progress Note ---
Surgery Progress Note Subjective Additional Comments no acute events feels well Seen by Krystle Kinney input appreciated no n/v labs noted lip improving MRI noted Objective Last 24 Hour Vital Signs Date Time Temp Pulse Resp B/P (MAP) Pulse Ox O2 Delivery O2 Flow Rate FiO2 07/31/20 12:00 97.9 49 16 138/75 (96) 94 07/31/20 09:00 Room Air 07/31/20 08:00 97.6 58 18 145/71 (95) 97 07/31/20 04:00 98.3 56 16 125/65 (85) 98 07/31/20 00:14 98.3 56 16 135/74 (94) 98 07/30/20 21:16 Room Air 07/30/20 20:39 97.5 50 16 141/70 (93) 97 07/30/20 20:00 97.5 50 16 141/70 (93) 100 07/30/20 16:00 97.5 55 18 137/74 (95) 98 I&O Intake and Output 07/30/20 07/31/20 19:00 07:00 Intake Total 1820 ml 100 ml Balance 1820 ml 100 ml Intake Oral 720 ml IV Total 1100 ml 100 ml # Voids 5 4 # Bowel Movements 6 Cardiovascular: RSR Respiratory: clear Abdomen: soft, flat, non-tender, present bowel sounds Extremities: no tenderness, no cyanosis Laboratory Tests Test 07/31/20 09:10 White Blood Count 3.5 K/UL (4.8-10.8) L Red Blood Count 4.24 M/UL (4.70-6.10) L Hemoglobin 11.7 G/DL (14.2-18.0) L Hematocrit 37.2 % (42.0-52.0) L Mean Corpuscular Volume 88 FL (80-99) Mean Corpuscular Hemoglobin 27.6 PG (27.0-31.0) Mean Corpuscular Hemoglobin Concent 31.4 G/DL (32.0-36.0) L Red Cell Distribution Width 16.0 % (11.6-14.8) H Platelet Count 210 K/UL (150-450) Mean Platelet Volume 5.7 FL (6.5-10.1) L Neutrophils (%) (Auto) 71.4 % (45.0-75.0) Lymphocytes (%) (Auto) 12.1 % (20.0-45.0) L Monocytes (%) (Auto) 13.2 % (1.0-10.0) H Eosinophils (%) (Auto) 2.5 % (0.0-3.0) Basophils (%) (Auto) 0.8 % (0.0-2.0) Sodium Level 142 MMOL/L (136-145) Potassium Level 3.7 MMOL/L (3.5-5.1) Chloride Level 109 MMOL/L (98-107) H Carbon Dioxide Level 27 MMOL/L (21-32) Anion Gap 6 mmol/L (5-15) Blood Urea Nitrogen 5 mg/dL (7-18) L Creatinine 1.0 MG/DL (0.55-1.30) Estimat Glomerular Filtration Rate > 60 mL/min (>60) Glucose Level 125 MG/DL (74-106) H Calcium Level 9.0 MG/DL (8.5-10.1) Total Bilirubin 0.5 MG/DL (0.2-1.0) Aspartate Amino Transf (AST/SGOT) 33 U/L (15-37) Alanine Aminotransferase (ALT/SGPT) 26 U/L (12-78) Alkaline Phosphatase 264 U/L (46-116) H Total Protein 6.6 G/DL (6.4-8.2) Albumin 2.9 G/DL (3.4-5.0) L Globulin 3.7 g/dL Albumin/Globulin Ratio 0.8 (1.0-2.7) L Triglycerides Level 59 MG/DL (30-150) Cholesterol Level 136 MG/DL (< 200) LDL Cholesterol 85 mg/dL (<100) HDL Cholesterol 34 MG/DL (40-60) L Cholesterol/HDL Ratio 4.0 (3.3-4.4) Amylase Level 147 U/L (25-115) H Lipase 848 U/L (73-393) H Carcinoembryonic Antigen Pending CA 19-9 Antigen Pending Plan Problems: (1) Acute pancreatitis Assessment & Plan: 75-year-old male with pancreatitis. No EtOH history. Seems to be having intermittent episodes of pancreatitis as states that the symptoms not as first time and is not a pancreatitis in the past. States that he was told potentially in the past he may have pancreatic cancer but is unaware. Does not have any of his medical records with him and is a poor historian in the details. Elevated lipase trending down with IV fluids. Pain improving. Tolerating diet. No acute surgical intervention planned at this time. Conservative management of medical acute pancreatitis. lipase improving pain resolved tolerating diet There are several lesions identified in the liver. There is only one lesion in the caudate lobe which demonstrates typical appearance of a simple cyst. It is circumscribed with smooth margin and fluid intensity on all sequences without enhancement. The other lesions identified in segments 6 and 7 of the right lobe of the liver are not a simple cyst by MR criteria. No fluid intensity noted on T2 images. They show diminished enhancement compared to adjacent liver parenchyma on postcontrast images. These vary in size with a few which are barely perceptible 2 largest measuring 1.8 cm in segment 6. With the patient's history, these are suspicious for metastatic disease. Slight scalloping of the lateral margin of the right lobe of the liver noted and there is suggestion of slight asymmetric enhancement of the underlying parenchyma noted. Spleen is homogeneous. Tiny gallstone noted layering in the gallbladder. There is no intrahepatic or extrahepatic ductal dilatation. There is slight prominence of the pancreatic duct near the neck region but no discrete parenchymal pancreatic lesion identified. Adrenals are normal. There are multiple bilateral renal cysts. There is no signs of bowel distention. No ascites demonstrated. There is no adenopathy noted. Visualized portions of the lumbar spine appear unremarkable. IMPRESSION: MULTIPLE HEPATIC LESIONS NOTED, ONLY ONE OF WHICH IN THE CAUDATE LOBE APPEARS TO BE A SIMPLE CYST. THE OTHER LESIONS DO NOT MEET MR CRITERIA FOR SIMPLE CYST AND METASTATIC DISEASE SHOULD BE CONSIDERED GIVEN THE PATIENT'S CLINICAL HISTORY. CONSIDER PET/CT FOR CONFIRMATION IF CLINICALLY INDICATED. TINY GALLSTONE. SLIGHT PROMINENCE OF PANCREATIC DUCT BUT NO DISCRETE PANCREATIC LESION SEEN PRESENTLY. RENAL CYSTS. (2) Abdominal pain Assessment & Plan: Patient complaining of abdominal pain likely related to pancreatitis also complaining of pain with multiple episodes of diarrhea and some anal pain. Patient with history of colon cancer status post subtotal colectomy with what seems to be a J-pouch having persistent diarrhea multiple episodes a day followed by potential incontinence as well described by patient. Afebrile hemodynamic stable otherwise okay. Abdominal exam fairly benign. Prior incisions noted well-healed. Patient is interested in having a evaluation for a continent ileostomy. Dr. Kenn Dalton will evaluate patient as patient has researched him prior and has come to this facility to be seen by him as evangelist ho. CT scan reviewed. Patient has multiple liver lesions that are concerning for potential metastatic disease. MRI ordered. Will need further work-up and management which can be done in outpatient setting by patient's PCP and oncologist once patient's pancreatitis is improved. Thank you will follow with recommendations Mild dependent atelectasis noted in both lung bases. There are several low densities identified in the caudate and right lobe of the liver. A few are circumscribed and low density resembling cysts but there are several in segment 6 and segment 7 of the liver which are not cystic. Patient does have known history of colon cancer and metastatic hepatic lesions is suspected. There is some low-density scalloping of the lateral margin right lobe of liver on images 22-25 which may reflect serosal disease as well. The spleen is homogeneous. Gallbladder is without sludge or stone and there is no wall thickening. Pancreas is mostly homogeneous. There is a focus of coarse calcification at the pancreatic head. Adrenals are normal in morphology. Multiple bilateral exophytic cysts of the kidneys noted. Postoperative changes noted near the GE junction. Small bowel loops are nondistended. Patient is status post colectomy. Anastomotic sutures noted in the region of the rectum. There is some soft tissue thickening in the presacral space most likely postoperative changes but focal recurrent tumor cannot be excluded. The appendix is not visualized. There is no free fluid or free air. No pathologic adenopathy demonstrated. Urinary bladder appears unremarkable. There is no suspicious superficial soft tissue or osseous abnormality. IMPRESSION: MULTIPLE LOW-DENSITY LESIONS IN THE LIVER, SOME OF WHICH ARE NOT SIMPLE CYSTS. WITH HISTORY OF COLON CANCER, METASTATIC HEPATIC LESIONS SUSPECTED. COARSE CALCIFICATION AT THE PANCREATIC HEAD. QUESTION HISTORY OF OLD PANCREATITIS. RENAL CYSTS. POSTOPERATIVE CHANGES NEAR THE GE JUNCTION. ALSO APPARENT COLECTOMY. SOME SOFT TISSUE THICKENING IN THE PRESACRAL SPACE MOST LIKELY POSTOPERATIVE CHANGES BUT FOCAL RECURRENT TUMOR CANNOT BE EXCLUDED. (3) Nausea vomiting and diarrhea Assessment & Plan: d/c planning outpatient f/u for oncology work up at [place] with his oncologist Alfredo Phillip Jul 31, 2020 14:41
[2020-07-31 16:00] VITALS: BP 137/74
[2020-07-31] MEDS ORDERED: Golytely 4L ORAL SCH (16:00)
--- NOTE | 2020-07-31 18:38 | Internal Med Progress Note ---
Subjective Physician Name Antoine Kay Attending Physician Antoine Kay MD Current Medications Medications (Trade) Dose Ordered Sig/Stacy Route PRN Reason Start Time Stop Time Status Last Admin Dose Admin Acetaminophen (Tylenol) 650 mg Q6H PRN ORAL Temp >100.5 07/30/20 00:15 08/29/20 00:14 Barium Sulfate (Readi-Cat 2) 450 ml NOW PRN ORAL Radiology Procedure 07/30/20 00:00 07/31/20 23:59 Dextrose/ Electrolytes 1,000 ml @ 100 mls/hr Q10H IV 07/30/20 00:15 08/29/20 00:14 07/31/20 16:48 Gadobutrol (Gadavist) 7.5 mmol ONCE PRN IV radiology procedure 07/30/20 12:00 08/01/20 11:59 Heparin Sodium (Porcine) (Heparin 5000 units/ml) 5,000 units EVERY 8 HOURS SUBQ 07/30/20 06:00 09/13/20 05:59 07/31/20 14:27 Iohexol (OMNIPAQUE-300 100ml) 100 ml NOW PRN INJ Radiology Procedure 07/30/20 00:00 07/31/20 23:59 Loperamide HCl (Imodium) 2 mg Q4H PRN ORAL Diarrhea 07/30/20 16:00 08/29/20 15:59 07/31/20 08:15 Morphine Sulfate (Morphine Sulfate) 2 mg Q4H PRN IVP FOR MODERATE PAIN 4 TO 6 07/30/20 00:15 08/06/20 00:14 Morphine Sulfate (Morphine Sulfate) 4 mg Q4H PRN IVP Severe Pain (Pain Scale 7-10) 07/30/20 00:15 08/06/20 00:14 Ondansetron HCl (Zofran) 4 mg Q4H PRN IVP Nausea & Vomiting 07/30/20 00:15 08/29/20 00:14 Polyethylene Glycol/ Electrolytes (Golytely) 4,000 ml ONCE ORAL 08/02/20 16:00 08/02/20 23:59 Zolpidem Tartrate (Ambien) 5 mg HSPRN PRN ORAL Insomnia 07/30/20 21:15 08/06/20 21:14 07/30/20 21:17 Allergies: Coded Allergies: No Known Allergies (Unverified , 07/29/20) Subjective awake, alert, responsive, denies any chest pain or abdominal pain, tolerated oral intake. Lipase: 848, no acute distress. Objective Last Vital Signs Date Time Temp Pulse Resp B/P (MAP) Pulse Ox O2 Delivery O2 Flow Rate FiO2 07/31/20 16:00 97.7 58 17 137/74 (95) 95 07/31/20 09:00 Room Air Laboratory Tests Test 07/31/20 09:10 White Blood Count 3.5 K/UL (4.8-10.8) L Red Blood Count 4.24 M/UL (4.70-6.10) L Hemoglobin 11.7 G/DL (14.2-18.0) L Hematocrit 37.2 % (42.0-52.0) L Mean Corpuscular Volume 88 FL (80-99) Mean Corpuscular Hemoglobin 27.6 PG (27.0-31.0) Mean Corpuscular Hemoglobin Concent 31.4 G/DL (32.0-36.0) L Red Cell Distribution Width 16.0 % (11.6-14.8) H Platelet Count 210 K/UL (150-450) Mean Platelet Volume 5.7 FL (6.5-10.1) L Neutrophils (%) (Auto) 71.4 % (45.0-75.0) Lymphocytes (%) (Auto) 12.1 % (20.0-45.0) L Monocytes (%) (Auto) 13.2 % (1.0-10.0) H Eosinophils (%) (Auto) 2.5 % (0.0-3.0) Basophils (%) (Auto) 0.8 % (0.0-2.0) Sodium Level 142 MMOL/L (136-145) Potassium Level 3.7 MMOL/L (3.5-5.1) Chloride Level 109 MMOL/L (98-107) H Carbon Dioxide Level 27 MMOL/L (21-32) Anion Gap 6 mmol/L (5-15) Blood Urea Nitrogen 5 mg/dL (7-18) L Creatinine 1.0 MG/DL (0.55-1.30) Estimat Glomerular Filtration Rate > 60 mL/min (>60) Glucose Level 125 MG/DL (74-106) H Calcium Level 9.0 MG/DL (8.5-10.1) Total Bilirubin 0.5 MG/DL (0.2-1.0) Aspartate Amino Transf (AST/SGOT) 33 U/L (15-37) Alanine Aminotransferase (ALT/SGPT) 26 U/L (12-78) Alkaline Phosphatase 264 U/L (46-116) H Total Protein 6.6 G/DL (6.4-8.2) Albumin 2.9 G/DL (3.4-5.0) L Globulin 3.7 g/dL Albumin/Globulin Ratio 0.8 (1.0-2.7) L Triglycerides Level 59 MG/DL (30-150) Cholesterol Level 136 MG/DL (< 200) LDL Cholesterol 85 mg/dL (<100) HDL Cholesterol 34 MG/DL (40-60) L Cholesterol/HDL Ratio 4.0 (3.3-4.4) Amylase Level 147 U/L (25-115) H Lipase 848 U/L (73-393) H Carcinoembryonic Antigen Pending CA 19-9 Antigen Pending Intake and Output 07/30/20 07/31/20 19:00 07:00 Intake Total 1820 ml 100 ml Balance 1820 ml 100 ml Intake Oral 720 ml IV Total 1100 ml 100 ml # Voids 5 4 # Bowel Movements 6 Objective General: No acute distress, awake and alert HEENT: NCAT, sclera anicteric, PERRL, EOMI. Neck: Supple, no significant jugular venous distention, Lungs: Good inspiratory effort, clear to auscultation bilaterally, no Wheeze or Rales. Heart: Regular rate and rhythm, normal S1/S2, no murmurs/gallops Abdomen: soft, less Epigastric tender, nondistended. Normoactive bowel sounds. / Rectal: Refused and deferred. Extremities: No Cyanosis , clubbing or edema. Neuro: A&O x 3, Able to move all extremities Skin: warm, no rashes or lesions Psych: Normal mood and affect Assessment/Plan Assessment/Plan Acute pancreatitis History of colon cancer status post resection. Liver masses/lesion possible metastatic disease. MRI of the abdomen with and without contrast: MULTIPLE HEPATIC LESIONS NOTED, ONLY ONE OF WHICH IN THE CAUDATE LOBE APPEARS TO BE A SIMPLE CYST. THE OTHER LESIONS DO NOT MEET MR CRITERIA FOR SIMPLE CYST AND METASTATIC DISEASE SHOULD BE CONSIDERED GIVEN THE PATIENT'S CLINICAL HISTORY. CONSIDER PET/CT FOR CONFIRMATION IF CLINICALLY INDICATED. TINY GALLSTONE. SLIGHT PROMINENCE OF PANCREATIC DUCT BUT NO DISCRETE PANCREATIC LESION SEEN PRESENTLY. RENAL CYSTS. Plan: Tolerated Regular diet Follow-up with gastroenterology recommendation: colonoscopy on Monday. Monitor laboratory. DVT prophylaxis heparin subcu. CODE STATUS is full code. consider PET/CT as outpatient. Antoine Kay MD Jul 31, 2020 18:38
--- NOTE | 2020-07-31 19:11 | NUR ---
NURSE HAND-OFF: Important Events on Shift: New order of colonoscopy on 08/03/20.IV hydration. Diarrhea Patient Status: stable Diet: cardiac diet Pending Orders: n/a Pending Results/Labs:n/a Pending MD notification:n/a Latest Vital Signs: Temperature 97.7 , Pulse 58 , B/P 137 /74 , Respiratory Rate 17 , O2 SAT 95 , Room Air, O2 Flow Rate . Vital Sign Comment: stable Latest Carreon Fall Score: 20 Fall Risk: Low Risk Safety Measures: Call light Within Reach, Bed Alarm Zone 1, Side Rails Side Rails x2, Bed position Low and Locked. Fall Precautions: Patient Fall Education Report given to CECY Jay.
[2020-07-31 20:00] VITALS: BP 122/65
--- NOTE | 2020-07-31 20:00 | NUR ---
NURSE NOTES: RECEIVED PATIENT AWAKE, SITTING IN CHAIR ADJACENT TO BED, ALERT/ORIENTED X4, VERBALLY RESPONSIVE, DENIES PAIN. NO SIGNS AND SYMPTOMS OF ACUTE CARDIO RESPIRATORY DISTRESS/SHORTNESS OF BREATH, DENIES CHEST PAIN, TRACE EDEMA NOTED. IV INTACT TO LEFT AC/GAUGE 20, TOLERATING IV FLUIDS, NO REDNESS/SWELLING NOTED TO SITE. ABDOMEN SOFT/NON DISTENDED/AUDIBLE BOWEL SOUNDS, CONTINENT OF B/B, CONTINUE TO EXPERIENCE LOOSE STOOLS/DIARRHEA, COLONOSCOPY ON MONDAY, PATIENT AWARE. ENCOURAGED PATIENT TO UTILIZE CALL LIGHT FOR ASSISTANCE, VERBALIZED UNDERSTANDING, CONTINUE WITH CURRENT PLAN OF CARE. NAD.
[2020-08-01] VITALS (7 sets, daily range): BP systolic 125–148; BP diastolic 51–77
[2020-08-01] MEDS: Heparin 5000 units/ml inj SUBQ SCH ×3 (05:48→21:25)
[2020-08-01 06:36] LABS: HEMATOCRIT 33.7 % (42.0-52.0); HEMOGLOBIN 11.1 G/DL (14.2-18.0); MEAN CORPUSCULAR VOLUME 88 FL (80-99); PLATELET COUNT 179 K/UL (150-450); RED BLOOD COUNT 3.83 M/UL (4.70-6.10); RED CELL DISTRIBUTION WIDTH 16.4 % (11.6-14.8); WHITE BLOOD COUNT 2.9 K/UL (4.8-10.8)
[2020-08-01 07:00] LABS: ALANINE AMINOTRANSFERASE 24 U/L (12-78); ALBUMIN 2.6 G/DL (3.4-5.0); ALBUMIN/GLOBULIN RATIO 0.7 (1.0-2.7); ALKALINE PHOSPHATASE 228 U/L (46-116); AMYLASE 181 U/L (25-115); ANION GAP 9 mmol/L (5-15); ASPARTATE AMINO TRANSFERASE 28 U/L (15-37); BILIRUBIN,TOTAL 0.5 MG/DL (0.2-1.0); BLOOD UREA NITROGEN 7 mg/dL (7-18); CALCIUM 8.8 MG/DL (8.5-10.1); CARBON DIOXIDE 24 MMOL/L (21-32); CHLORIDE 111 MMOL/L (98-107); POTASSIUM 4.2 MMOL/L (3.5-5.1); SODIUM 143 MMOL/L (136-145)
--- NOTE | 2020-08-01 07:41 | NUR ---
NURSE HAND-OFF: Important Events on Shift:[UNEVENTFUL NIGHT] Patient Status: [STABLE] Diet: [CARDIAC] Pending Orders: [08/02/20 CLEAR LIQUID DIET-2 NPO PENDING COLONOSCOPY, START GOLYTELY 08/02 1600 - 2300] Pending Results/Labs:[[facility]] Pending MD notification:[] Latest Vital Signs: Temperature 98.4 , Pulse 50 , B/P 134 /51 , Respiratory Rate 17 , O2 SAT 97 , Room Air, O2 Flow Rate . Vital Sign Comment: [VITALS STABLE, AFEBRILE] Latest Carreon Fall Score: 20 Fall Risk: Low Risk Safety Measures: Call light Within Reach, Bed Alarm Zone 1, Side Rails Side Rails x2, Bed position Low and Locked. Fall Precautions: Patient Fall Education Report given to [MAURO PATRICIA].
--- NOTE | 2020-08-01 07:56 | NUR ---
NURSE NOTES: Patient awake, alert x3, forget-full; on room air, no sing of distress and shortness of breath; no sing of chest pain; IV LAC 20G D1/2NS 20mEq 100cc; side rails up x2, breaks engaged, call light within reach; will keep monitoring.
[2020-08-01] MEDS: Morphine Sulfate 4mg/ml Inj (IV USE ONLY) IVP PRN (11:06)
--- NOTE | 2020-08-01 11:46 | Surgery Progress Note ---
Surgery Progress Note Subjective Symptoms: improved, tolerating diet, voiding well, passing flatus, BM Additional Comments states lots of loose bm Objective Last 24 Hour Vital Signs Date Time Temp Pulse Resp B/P (MAP) Pulse Ox O2 Delivery O2 Flow Rate FiO2 08/01/20 11:36 97.4 08/01/20 09:00 Room Air 08/01/20 08:00 97.4 66 18 125/65 (85) 96 08/01/20 04:00 98.4 50 17 134/51 (78) 97 08/01/20 00:00 98.6 52 16 129/70 (89) 97 07/31/20 21:32 Room Air 07/31/20 20:00 98.1 58 16 122/65 (84) 96 07/31/20 16:00 97.7 58 17 137/74 (95) 95 07/31/20 12:00 97.9 49 16 138/75 (96) 94 I&O Intake and Output 07/31/20 08/01/20 19:00 07:00 Intake Total 1700 ml 1920 ml Balance 1700 ml 1920 ml Intake Oral 500 ml 720 ml IV Total 1200 ml 1200 ml # Voids 3 7 # Bowel Movements 2 Cardiovascular: RSR Respiratory: clear Abdomen: soft, flat, non-tender, present bowel sounds, non-distended Extremities: no edema, no tenderness, no cyanosis Laboratory Tests Test 08/01/20 05:20 White Blood Count 2.9 K/UL (4.8-10.8) L Red Blood Count 3.83 M/UL (4.70-6.10) L Hemoglobin 11.1 G/DL (14.2-18.0) L Hematocrit 33.7 % (42.0-52.0) L Mean Corpuscular Volume 88 FL (80-99) Mean Corpuscular Hemoglobin 29.1 PG (27.0-31.0) Mean Corpuscular Hemoglobin Concent 33.1 G/DL (32.0-36.0) Red Cell Distribution Width 16.4 % (11.6-14.8) H Platelet Count 179 K/UL (150-450) Mean Platelet Volume 5.3 FL (6.5-10.1) L Neutrophils (%) (Auto) % (45.0-75.0) Lymphocytes (%) (Auto) % (20.0-45.0) Monocytes (%) (Auto) % (1.0-10.0) Eosinophils (%) (Auto) % (0.0-3.0) Basophils (%) (Auto) % (0.0-2.0) Differential Total Cells Counted 100 Neutrophils % (Manual) 59 % (45-75) Lymphocytes % (Manual) 23 % (20-45) Monocytes % (Manual) 15 % (1-10) H Eosinophils % (Manual) 2 % (0-3) Basophils % (Manual) 1 % (0-2) Band Neutrophils 0 % (0-8) Platelet Estimate Adequate Platelet Morphology Normal Anisocytosis 1+ Sodium Level 143 MMOL/L (136-145) Potassium Level 4.2 MMOL/L (3.5-5.1) Chloride Level 111 MMOL/L (98-107) H Carbon Dioxide Level 24 MMOL/L (21-32) Anion Gap 9 mmol/L (5-15) Blood Urea Nitrogen 7 mg/dL (7-18) Creatinine 1.0 MG/DL (0.55-1.30) Estimat Glomerular Filtration Rate > 60 mL/min (>60) Glucose Level 76 MG/DL (74-106) Calcium Level 8.8 MG/DL (8.5-10.1) Total Bilirubin 0.5 MG/DL (0.2-1.0) Aspartate Amino Transf (AST/SGOT) 28 U/L (15-37) Alanine Aminotransferase (ALT/SGPT) 24 U/L (12-78) Alkaline Phosphatase 228 U/L (46-116) H Total Protein 6.2 G/DL (6.4-8.2) L Albumin 2.6 G/DL (3.4-5.0) L Globulin 3.6 g/dL Albumin/Globulin Ratio 0.7 (1.0-2.7) L Amylase Level 181 U/L (25-115) H Lipase 1740 U/L (73-393) H Plan Problems: (1) Acute pancreatitis Assessment & Plan: 75-year-old male with pancreatitis. No EtOH history. Seems to be having intermittent episodes of pancreatitis as states that the symptoms not as first time and is not a pancreatitis in the past. States that he was told potentially in the past he may have pancreatic cancer but is unaware. Does not have any of his medical records with him and is a poor historian in the details. Elevated lipase trending down with IV fluids. Pain improving. Tolerating diet. No acute surgical intervention planned at this time. Conservative management of medical acute pancreatitis. lipase improving pain resolved tolerating diet There are several lesions identified in the liver. There is only one lesion in the caudate lobe which demonstrates typical appearance of a simple cyst. It is circumscribed with smooth margin and fluid intensity on all sequences without enhancement. The other lesions identified in segments 6 and 7 of the right lobe of the liver are not a simple cyst by MR criteria. No fluid intensity noted on T2 images. They show diminished enhancement compared to adjacent liver parenchyma on postcontrast images. These vary in size with a few which are barely perceptible 2 largest measuring 1.8 cm in segment 6. With the patient's history, these are suspicious for metastatic disease. Slight scalloping of the lateral margin of the right lobe of the liver noted and there is suggestion of slight asymmetric enhancement of the underlying parenchyma noted. Spleen is homogeneous. Tiny gallstone noted layering in the gallbladder. There is no intrahepatic or extrahepatic ductal dilatation. There is slight prominence of the pancreatic duct near the neck region but no discrete parenchymal pancreatic lesion identified. Adrenals are normal. There are multiple bilateral renal cysts. There is no signs of bowel distention. No ascites demonstrated. There is no adenopathy noted. Visualized portions of the lumbar spine appear unremarkable. IMPRESSION: MULTIPLE HEPATIC LESIONS NOTED, ONLY ONE OF WHICH IN THE CAUDATE LOBE APPEARS TO BE A SIMPLE CYST. THE OTHER LESIONS DO NOT MEET MR CRITERIA FOR SIMPLE CYST AND METASTATIC DISEASE SHOULD BE CONSIDERED GIVEN THE PATIENT'S CLINICAL HISTORY. CONSIDER PET/CT FOR CONFIRMATION IF CLINICALLY INDICATED. TINY GALLSTONE. SLIGHT PROMINENCE OF PANCREATIC DUCT BUT NO DISCRETE PANCREATIC LESION SEEN PRESENTLY. RENAL CYSTS. (2) Abdominal pain Assessment & Plan: Patient complaining of abdominal pain likely related to pancreatitis also complaining of pain with multiple episodes of diarrhea and some anal pain. Patient with history of colon cancer status post subtotal colec donald with what seems to be a J-pouch having persistent diarrhea multiple episodes a day followed by potential incontinence as well described by patient. Afebrile hemodynamic stable otherwise okay. Abdominal exam fairly benign. Prior incisions noted well-healed. Patient is interested in having a evaluation for a continent ileostomy. Dr. Kenn Dalton will evaluate patient as patient has researched him prior and has come to this facility to be seen by him as well. CT scan reviewed. Patient has multiple liver lesions that are concerning for potential metastatic disease. MRI ordered. Will need further work-up and management which can be done in outpatient setting by patient's PCP and oncologist once patient's pancreatitis is improved. Thank you will follow with recommendations Mild dependent atelectasis noted in both lung bases. There are several low densities identified in the caudate and right lobe of the liver. A few are circumscribed and low density resembling cysts but there are several in segment 6 and segment 7 of the liver which are not cystic. Patient does have known history of colon cancer and metastatic hepatic lesions is suspected. There is some low-density scalloping of the lateral margin right lobe of liver on images 22-25 which may reflect serosal disease as well. The spleen is homogeneous. Gallbladder is without sludge or stone and there is no wall thickening. Pancreas is mostly homogeneous. There is a focus of coarse calcification at the pancreatic head. Adrenals are normal in morphology. Multiple bilateral exophytic cysts of the kidneys noted. Postoperative changes noted near the GE junction. Small bowel loops are nondistended. Patient is status post colectomy. Anastomotic sutures noted in the region of the rectum. There is some soft tissue thickening in the presacral space most likely postoperative changes but focal recurrent tumor cannot be excluded. The appendix is not visualized. There is no free fluid or free air. No pathologic adenopathy demonstrated. Urinary bladder appears unremarkable. There is no suspicious superficial soft tissue or osseous abnormality. IMPRESSION: MULTIPLE LOW-DENSITY LESIONS IN THE LIVER, SOME OF WHICH ARE NOT SIMPLE CYSTS. WITH HISTORY OF COLON CANCER, METASTATIC HEPATIC LESIONS SUSPECTED. COARSE CALCIFICATION AT THE PANCREATIC HEAD. QUESTION HISTORY OF OLD PANCREATITIS. RENAL CYSTS. POSTOPERATIVE CHANGES NEAR THE GE JUNCTION. ALSO APPARENT COLECTOMY. SOME SOFT TISSUE THICKENING IN THE PRESACRAL SPACE MOST LIKELY POSTOPERATIVE CHANGES BUT FOCAL RECURRENT TUMOR CANNOT BE EXCLUDED. (3) Nausea vomiting and diarrhea Assessment & Plan: d/c planning outpatient f/u for oncology work up at [place] with his oncologist Alfredo Phillip Aug 01, 2020 11:46
[2020-08-01] MEDS: D5 1/2NS w/KCl 20mEq 1,000 ML IV SCH ×2 (12:11→22:15)
--- NOTE | 2020-08-01 16:49 | Internal Med Progress Note ---
Subjective Date of Service: Aug 01, 2020 Physician Name DenisseDuke Attending Physician Antoine Kay MD Current Medications Medications (Trade) Dose Ordered Sig/Stacy Route PRN Reason Start Time Stop Time Status Last Admin Dose Admin Acetaminophen (Tylenol) 650 mg Q6H PRN ORAL Temp >100.5 07/30/20 00:15 08/29/20 00:14 Dextrose/ Electrolytes 1,000 ml @ 100 mls/hr Q10H IV 07/30/20 00:15 08/29/20 00:14 08/01/20 12:11 Heparin Sodium (Porcine) (Heparin 5000 units/ml) 5,000 units EVERY 8 HOURS SUBQ 07/30/20 06:00 09/13/20 05:59 08/01/20 13:12 Loperamide HCl (Imodium) 2 mg Q4H PRN ORAL Diarrhea 07/30/20 16:00 08/29/20 15:59 07/31/20 08:15 Morphine Sulfate (Morphine Sulfate) 2 mg Q4H PRN IVP FOR MODERATE PAIN 4 TO 6 07/30/20 00:15 08/06/20 00:14 Morphine Sulfate (Morphine Sulfate) 4 mg Q4H PRN IVP Severe Pain (Pain Scale 7-10) 07/30/20 00:15 08/06/20 00:14 08/01/20 11:06 Ondansetron HCl (Zofran) 4 mg Q4H PRN IVP Nausea & Vomiting 07/30/20 00:15 08/29/20 00:14 Polyethylene Glycol/ Electrolytes (Golytely) 4,000 ml ONCE ORAL 08/02/20 16:00 08/02/20 23:59 Zolpidem Tartrate (Ambien) 5 mg HSPRN PRN ORAL Insomnia 07/30/20 21:15 08/06/20 21:14 07/30/20 21:17 Allergies: Coded Allergies: No Known Allergies (Unverified , 07/29/20) ROS Limited/Unobtainable: No Constitutional: Reports: no symptoms HEENT: Reports: no symptoms Cardiovascular: Reports: no symptoms Respiratory: Reports: no symptoms Gastrointestinal/Abdominal: Reports: abdominal pain Genitourinary: Reports: no symptoms Neurologic/Psychiatric: Reports: no symptoms Subjective 75 YO M admitted with abdominal pain. Now acute pancreatitis and liver masses. Cover for Int Med-DR Kay Objective Last Vital Signs Date Time Temp Pulse Resp B/P (MAP) Pulse Ox O2 Delivery O2 Flow Rate FiO2 08/01/20 16:00 98.3 58 18 148/77 (100) 98 08/01/20 09:00 Room Air Laboratory Tests Test 08/01/20 05:20 White Blood Count 2.9 K/UL (4.8-10.8) L Red Blood Count 3.83 M/UL (4.70-6.10) L Hemoglobin 11.1 G/DL (14.2-18.0) L Hematocrit 33.7 % (42.0-52.0) L Mean Corpuscular Volume 88 FL (80-99) Mean Corpuscular Hemoglobin 29.1 PG (27.0-31.0) Mean Corpuscular Hemoglobin Concent 33.1 G/DL (32.0-36.0) Red Cell Distribution Width 16.4 % (11.6-14.8) H Platelet Count 179 K/UL (150-450) Mean Platelet Volume 5.3 FL (6.5-10.1) L Neutrophils (%) (Auto) % (45.0-75.0) Lymphocytes (%) (Auto) % (20.0-45.0) Monocytes (%) (Auto) % (1.0-10.0) Eosinophils (%) (Auto) % (0.0-3.0) Basophils (%) (Auto) % (0.0-2.0) Differential Total Cells Counted 100 Neutrophils % (Manual) 59 % (45-75) Lymphocytes % (Manual) 23 % (20-45) Monocytes % (Manual) 15 % (1-10) H Eosinophils % (Manual) 2 % (0-3) Basophils % (Manual) 1 % (0-2) Band Neutrophils 0 % (0-8) Platelet Estimate Adequate Platelet Morphology Normal Anisocytosis 1+ Sodium Level 143 MMOL/L (136-145) Potassium Level 4.2 MMOL/L (3.5-5.1) Chloride Level 111 MMOL/L (98-107) H Carbon Dioxide Level 24 MMOL/L (21-32) Anion Gap 9 mmol/L (5-15) Blood Urea Nitrogen 7 mg/dL (7-18) Creatinine 1.0 MG/DL (0.55-1.30) Estimat Glomerular Filtration Rate > 60 mL/min (>60) Glucose Level 76 MG/DL (74-106) Calcium Level 8.8 MG/DL (8.5-10.1) Total Bilirubin 0.5 MG/DL (0.2-1.0) Aspartate Amino Transf (AST/SGOT) 28 U/L (15-37) Alanine Aminotransferase (ALT/SGPT) 24 U/L (12-78) Alkaline Phosphatase 228 U/L (46-116) H Total Protein 6.2 G/DL (6.4-8.2) L Albumin 2.6 G/DL (3.4-5.0) L Globulin 3.6 g/dL Albumin/Globulin Ratio 0.7 (1.0-2.7) L Amylase Level 181 U/L (25-115) H Lipase 1740 U/L (73-393) H Intake and Output 07/31/20 08/01/20 19:00 07:00 Intake Total 1700 ml 1920 ml Balance 1700 ml 1920 ml Intake Oral 500 ml 720 ml IV Total 1200 ml 1200 ml # Voids 3 7 # Bowel Movements 2 Objective Objective General: No acute distress, awake and alert HEENT: NCAT, sclera anicteric, PERRL, EOMI. Neck: Supple, no significant jugular venous distention, Lungs: Good inspiratory effort, clear to auscultation bilaterally, no Wheeze or Rales. Heart: Regular rate and rhythm, normal S1/S2, no murmurs/gallops Abdomen: soft, less Epigastric tender, nondistended. Normoactive bowel sounds. / Rectal: Refused and deferred. Extremities: No Cyanosis , clubbing or edema. Neuro: A&O x 3, Able to move all extremities Skin: warm, no rashes or lesions Psych: Normal mood and affect Assessment/Plan Assessment/Plan Assessment/Plan Assessment/Plan Acute pancreatitis History of colon cancer status post resection. Liver masses/lesion possible metastatic disease. Plan: Tolerated Regular diet Follow-up with gastroenterology recommendation: colonoscopy on Monday. Monitor laboratory. DVT prophylaxis heparin subcu. CODE STATUS is full code. consider PET/CT as outpatient. Duke Salcedo MD Aug 01, 2020 16:49
--- NOTE | 2020-08-01 19:21 | NUR ---
NURSE NOTES: Patient in bed, awake, alert x 4. Able to make needs known. Respiration is even and unlabored. No complaint of pain or discomfort at this time. Abdomen is soft and non distended. Iv site noted. skin is warm and dry to touch. Bed in low and locked position, provided safe environment. call light is at bedside. Will continue plan of care.
--- NOTE | 2020-08-01 19:25 | NUR ---
NURSE HAND-OFF: Important Events on Shift:IV fluid hydration; managing pain; Patient Status: Diet: Pending Orders: Pending Results/Labs: Pending MD notification: Latest Vital Signs: Temperature 98.3 , Pulse 58 , B/P 148 /77 , Respiratory Rate 18 , O2 SAT 98 , Room Air, O2 Flow Rate . Vital Sign Comment: Latest Carreon Fall Score: 20 Fall Risk: Low Risk Safety Measures: Call light Within Reach, Bed Alarm Zone 1, Side Rails Side Rails x2, Bed position Low and Locked. Fall Precautions: Patient Fall Education Report given to .
--- NOTE | 2020-08-01 21:07 | General Progress Note ---
Subjective Allergies: Coded Allergies: No Known Allergies (Unverified , 07/29/20) Subjective Above noted c/o frequent diarrhea c/o epigastric pain Objective Last 24 Hour Vital Signs Date Time Temp Pulse Resp B/P (MAP) Pulse Ox O2 Delivery O2 Flow Rate FiO2 08/01/20 20:21 Room Air 08/01/20 20:00 97.4 56 17 131/66 (87) 97 08/01/20 16:00 98.3 58 18 148/77 (100) 98 08/01/20 12:00 98.2 69 18 132/68 (89) 96 08/01/20 11:36 97.4 08/01/20 09:00 Room Air 08/01/20 08:00 97.4 66 18 125/65 (85) 96 08/01/20 04:00 98.4 50 17 134/51 (78) 97 08/01/20 00:00 98.6 52 16 129/70 (89) 97 07/31/20 21:32 Room Air Intake and Output 07/31/20 08/01/20 19:00 07:00 Intake Total 1700 ml 1920 ml Balance 1700 ml 1920 ml Intake Oral 500 ml 720 ml IV Total 1200 ml 1200 ml # Voids 3 7 # Bowel Movements 2 Laboratory Tests 08/01/20 05:20: White Blood Count 2.9L, Red Blood Count 3.83L, Hemoglobin 11.1L, Hematocrit 33.7L, Mean Corpuscular Volume 88, Mean Corpuscular Hemoglobin 29.1, Mean Corpuscular Hemoglobin Concent 33.1, Red Cell Distribution Width 16.4H, Platelet Count 179, Mean Platelet Volume 5.3L, Neutrophils (%) (Auto) , Lymphocytes (%) (Auto) , Monocytes (%) (Auto) , Eosinophils (%) (Auto) , Basophils (%) (Auto) , Differential Total Cells Counted 100, Neutrophils % (Manual) 59, Lymphocytes % (Manual) 23, Monocytes % (Manual) 15H, Eosinophils % (Manual) 2, Basophils % (Manual) 1, Band Neutrophils 0, Platelet Estimate Adequate, Platelet Morphology Normal, Anisocytosis 1+, Sodium Level 143, Potassium Level 4.2, Chloride Level 111H, Carbon Dioxide Level 24, Anion Gap 9, Blood Urea Nitrogen 7, Creatinine 1.0, Estimat Glomerular Filtration Rate > 60, Glucose Level 76, Calcium Level 8.8, Total Bilirubin 0.5, Aspartate Amino Transf (AST/SGOT) 28, Alanine Aminotransferase (ALT/SGPT) 24, Alkaline Phosphatase 228H, Total Protein 6.2L, Albumin 2.6L, Globulin 3.6, Albumin/Globulin Ratio 0.7L, Amylase Level 181H, Lipase 1740H Height (Feet): 5 Height (Inches): 7.00 Weight (Pounds): 188 Objective Elderly man NCAT supple CTA RR abd soft ND NT no edema Assessment/Plan Assessment/Plan: Assessment - diarrhea - hematochezia - pancreatitis Recommendations - monitor CBC, Lipase, LFT - GI preparation tomorrow - Colonoscopy Monday Tristan Bhardwaj MD Aug 01, 2020 21:07
[2020-08-02] MEDS: D5 1/2NS w/KCl 20mEq 1,000 ML IV SCH ×3 (01:01→13:24)
[2020-08-02] MEDS: Zolpidem 5mg tab ORAL PRN (01:02)
[2020-08-02 04:00] VITALS: BP 127/64
[2020-08-02] MEDS: Heparin 5000 units/ml inj SUBQ SCH ×3 (05:47→22:00)
--- NOTE | 2020-08-02 07:14 | NUR ---
NURSE HAND-OFF: Important Events on Shift:WNL Patient Status: WNL Diet: Clear Liquid Pending Orders: Pending Results/Labs: Pending MD notification: Latest Vital Signs: Temperature 98.4 , Pulse 50 , B/P 127 /64 , Respiratory Rate 19 , O2 SAT 96 , Room Air, O2 Flow Rate . Vital Sign Comment: WNL Latest Carreon Fall Score: 20 Fall Risk: Low Risk Safety Measures: Call light Within Reach, Bed Alarm Zone 1, Side Rails Side Rails x2, Bed position Low and Locked. Fall Precautions: Patient Fall Education Report given to Jyoti Thomas.
[2020-08-02 08:10] VITALS: BP 144/61
[2020-08-02] MEDS: Morphine Sulfate 4mg/ml Inj (IV USE ONLY) IVP PRN ×2 (08:31→18:43)
[2020-08-02 12:16] VITALS: BP 158/55
--- NOTE | 2020-08-02 12:25 | Surgery Progress Note ---
Surgery Progress Note Subjective Additional Comments possible scope soon gi eval Objective Last 24 Hour Vital Signs Date Time Temp Pulse Resp B/P (MAP) Pulse Ox O2 Delivery O2 Flow Rate FiO2 08/02/20 12:16 98.6 66 17 158/55 (89) 90 08/02/20 08:10 98.9 61 19 144/61 (88) 92 08/02/20 08:00 Room Air 08/02/20 04:00 98.4 50 19 127/64 (85) 96 08/01/20 23:28 98.6 52 20 128/73 (91) 97 08/01/20 20:21 Room Air 08/01/20 20:00 97.4 56 17 131/66 (87) 97 08/01/20 16:00 98.3 58 18 148/77 (100) 98 I&O Intake and Output 08/01/20 08/02/20 19:00 07:00 Intake Total 2480 ml 1000 ml Balance 2480 ml 1000 ml Intake Oral 1680 ml IV Total 800 ml 1000 ml # Voids 2 2 Cardiovascular: RSR Respiratory: clear Abdomen: soft, flat, non-tender, present bowel sounds Extremities: no edema, no tenderness, no cyanosis Plan Problems: (1) Acute pancreatitis Assessment & Plan: 75-year-old male with pancreatitis. No EtOH history. Seems to be having intermittent episodes of pancreatitis as states that the symptoms not as first time and is not a pancreatitis in the past. States that he was told potentially in the past he may have pancreatic cancer but is unaware. Does not have any of his medical records with him and is a poor historian in the details. Elevated lipase trending down with IV fluids. Pain improving. Tolerating diet. No acute surgical intervention planned at this time. Conservative management of medical acute pancreatitis. lipase improving pain resolved tolerating diet There are several lesions identified in the liver. There is only one lesion in the caudate lobe which demonstrates typical appearance of a simple cyst. It is circumscribed with smooth margin and fluid intensity on all sequences without enhancement. The other lesions identified in segments 6 and 7 of the right lobe of the liver are not a simple cyst by MR criteria. No fluid intensity noted on T2 images. They show diminished enhancement compared to adjacent liver parenchyma on postcontrast images. These vary in size with a few which are barely perceptible 2 largest measuring 1.8 cm in segment 6. With the patient's history, these are suspicious for metastatic disease. Slight scalloping of the lateral margin of the right lobe of the liver noted and there is suggestion of slight asymmetric enhancement of the underlying parenchyma noted. Spleen is homogeneous. Tiny gallstone noted layering in the gallbladder. There is no intrahepatic or extrahepatic ductal dilatation. There is slight prominence of the pancreatic duct near the neck region but no discrete parenchymal pancreatic lesion identified. Adrenals are normal. There are multiple bilateral renal cysts. There is no signs of bowel distention. No ascites demonstrated. There is no adenopathy noted. Visualized portions of the lumbar spine appear unremarkable. IMPRESSION: MULTIPLE HEPATIC LESIONS NOTED, ONLY ONE OF WHICH IN THE CAUDATE LOBE APPEARS TO BE A SIMPLE CYST. THE OTHER LESIONS DO NOT MEET MR CRITERIA FOR SIMPLE CYST AND METASTATIC DISEASE SHOULD BE CONSIDERED GIVEN THE PATIENT'S CLINICAL HISTORY. CONSIDER PET/CT FOR CONFIRMATION IF CLINICALLY INDICATED. TINY GALLSTONE. SLIGHT PROMINENCE OF PANCREATIC DUCT BUT NO DISCRETE PANCREATIC LESION SEEN PRESENTLY. RENAL CYSTS. (2) Abdominal pain Assessment & Plan: Patient complaining of abdominal pain likely related to pancreatitis also complaining of pain with multiple episodes of diarrhea and some anal pain. Patient with history of colon cancer status post subtotal colectomy with what seems to be a J-pouch having persistent diarrhea multiple episodes a day followed by potential incontinence as well described by patient. Afebrile hemodynamic stable otherwise okay. Abdominal exam fairly benign. Prior incisions noted well-healed. Patient is interested in having a evaluation for a continent ileostomy. Dr. Kenn Dalton will evaluate patient as patient has researched him prior and has come to this facility to be seen by him as well. CT scan reviewed. Patient has multiple liver lesions that are concerning for potential metastatic disease. MRI ordered. Will need further work-up and management which can be done in outpatient setting by patient's PCP and oncologist once patient's pancreatitis is improved. Thank you will follow with recommendations Mild dependent atelectasis noted in both lung bases. There are several low densities identified in the caudate and right lobe of the liver. A few are circumscribed and low density resembling cysts but there are several in segment 6 and segment 7 of the liver which are not cystic. Patient does have known history of colon cancer and metastatic hepatic lesions is suspected. There is some low-density scalloping of the lateral margin right lobe of liver on images 22-25 which may reflect serosal disease as well. The spleen is homogeneous. Gallbladder is without sludge or stone and there is no wall thickening. Pancreas is mostly homogeneous. There is a focus of coarse calcification at the pancreatic head. Adrenals are normal in morphology. Multiple bilateral exophytic cysts of the kidneys noted. Postoperative changes noted near the GE junction. Small bowel loops are nondistended. Patient is status post colectomy. Anastomotic sutures noted in the region of the rectum. There is some soft tissue thickening in the presacral space most likely postoperative changes but focal recurrent tumor cannot be excluded. The appendix is not visualized. There is no free fluid or free air. No pathologic adenopathy demonstrated. Urinary bladder appears unremarkable. There is no suspicious superficial soft tissue or osseous abnormality. IMPRESSION: MULTIPLE LOW-DENSITY LESIONS IN THE LIVER, SOME OF WHICH ARE NOT SIMPLE CYSTS. WITH HISTORY OF COLON CANCER, METASTATIC HEPATIC LESIONS SUSPECTED. COARSE CALCIFICATION AT THE PANCREATIC HEAD. QUESTION HISTORY OF OLD PANCREATITIS. RENAL CYSTS. POSTOPERATIVE CHANGES NEAR THE GE JUNCTION. ALSO APPARENT COLECTOMY. SOME SOFT TISSUE THICKENING IN THE PRESACRAL SPACE MOST LIKELY POSTOPERATIVE CHANGES BUT FOCAL RECURRENT TUMOR CANNOT BE EXCLUDED. (3) Nausea vomiting and diarrhea Assessment & Plan: d/c planning outpatient f/u for oncology work up at [place] with his oncologist Alfredo Phillip Aug 02, 2020 12:25
--- NOTE | 2020-08-02 13:37 | Internal Med Progress Note ---
Subjective Date of Service: Aug 02, 2020 Physician Name Duke Salcedo Attending Physician Antoine Kay MD Current Medications Medications (Trade) Dose Ordered Sig/Stacy Route PRN Reason Start Time Stop Time Status Last Admin Dose Admin Acetaminophen (Tylenol) 650 mg Q6H PRN ORAL Temp >100.5 07/30/20 00:15 08/29/20 00:14 Dextrose/ Electrolytes 1,000 ml @ 100 mls/hr Q10H IV 07/30/20 00:15 08/29/20 00:14 08/02/20 13:24 Heparin Sodium (Porcine) (Heparin 5000 units/ml) 5,000 units EVERY 8 HOURS SUBQ 07/30/20 06:00 09/13/20 05:59 08/02/20 05:47 Loperamide HCl (Imodium) 2 mg Q4H PRN ORAL Diarrhea 07/30/20 16:00 08/29/20 15:59 07/31/20 08:15 Morphine Sulfate (Morphine Sulfate) 2 mg Q4H PRN IVP FOR MODERATE PAIN 4 TO 6 07/30/20 00:15 08/06/20 00:14 Morphine Sulfate (Morphine Sulfate) 4 mg Q4H PRN IVP Severe Pain (Pain Scale 7-10) 07/30/20 00:15 08/06/20 00:14 08/02/20 08:31 Ondansetron HCl (Zofran) 4 mg Q4H PRN IVP Nausea & Vomiting 07/30/20 00:15 08/29/20 00:14 08/02/20 01:05 Polyethylene Glycol/ Electrolytes (Golytely) 4,000 ml ONCE ORAL 08/02/20 16:00 08/02/20 23:59 Zolpidem Tartrate (Ambien) 5 mg HSPRN PRN ORAL Insomnia 07/30/20 21:15 08/06/20 21:14 08/02/20 01:02 Allergies: Coded Allergies: No Known Allergies (Unverified , 07/29/20) ROS Limited/Unobtainable: No Constitutional: Reports: no symptoms HEENT: Reports: no symptoms Cardiovascular: Reports: no symptoms Respiratory: Reports: no symptoms Gastrointestinal/Abdominal: Reports: abdominal pain Genitourinary: Reports: no symptoms Neurologic/Psychiatric: Reports: no symptoms Subjective 75 YO M admitted with abdominal pain. Now acute pancreatitis and liver masses. Cover for Int Med-DR Kay Objective Last Vital Signs Date Time Temp Pulse Resp B/P (MAP) Pulse Ox O2 Delivery O2 Flow Rate FiO2 08/02/20 12:16 98.6 66 17 158/55 (89) 90 08/02/20 08:00 Room Air Intake and Output 08/01/20 08/02/20 19:00 07:00 Intake Total 2480 ml 1000 ml Balance 2480 ml 1000 ml Intake Oral 1680 ml IV Total 800 ml 1000 ml # Voids 2 2 Objective Objective General: No acute distress, awake and alert HEENT: NCAT, sclera anicteric, PERRL, EOMI. Neck: Supple, no significant jugular venous distention, Lungs: Good inspiratory effort, clear to auscultation bilaterally, no Wheeze or Rales. Heart: Regular rate and rhythm, normal S1/S2, no murmurs/gallops Abdomen: soft, less Epigastric tender, nondistended. Normoactive bowel sounds. / Rectal: Refused and deferred. Extremities: No Cyanosis , clubbing or edema. Neuro: A&O x 3, Able to move all extremities Skin: warm, no rashes or lesions Psych: Normal mood and affect Assessment/Plan Assessment/Plan Assessment/Plan Assessment/Plan Acute pancreatitis History of colon cancer status post resection. Liver masses/lesion possible metastatic disease. Plan: Tolerated Regular diet gastroenterology = Dr Alston. Await colonoscopy on Monday08/03/20 Monitor laboratory. DVT prophylaxis heparin subcu. CODE STATUS is full code. consider PET/CT as outpatient. Duke Salcedo MD Aug 02, 2020 13:37
--- NOTE | 2020-08-02 15:27 | NUR ---
nurse notes endorsed to Mary GEOPHYSICAL PROSPECTING PERMIT AGENT accordingly, for continuity of care obed yi
[2020-08-02 16:00] VITALS: BP 163/81
[2020-08-02] MEDS ORDERED: Golytely 4L ORAL SCH (16:00)
--- NOTE | 2020-08-02 16:00 | NUR ---
nurse notes lorraine johnson will endorse to MAURO Martinez accordingly, for continuity of care mauro yi
--- NOTE | 2020-08-02 18:18 | General Progress Note ---
Subjective Allergies: Coded Allergies: No Known Allergies (Unverified , 07/29/20) Subjective Above noted c/o frequent diarrhea Colonoscopy scheduled for tomorrow Objective Last 24 Hour Vital Signs Date Time Temp Pulse Resp B/P (MAP) Pulse Ox O2 Delivery O2 Flow Rate FiO2 08/02/20 16:00 97.4 62 20 163/81 (108) 94 08/02/20 12:16 98.6 66 17 158/55 (89) 90 08/02/20 08:10 98.9 61 19 144/61 (88) 92 08/02/20 08:00 Room Air 08/02/20 04:00 98.4 50 19 127/64 (85) 96 08/01/20 23:28 98.6 52 20 128/73 (91) 97 08/01/20 20:21 Room Air 08/01/20 20:00 97.4 56 17 131/66 (87) 97 Intake and Output 08/01/20 08/02/20 19:00 07:00 Intake Total 2480 ml 1000 ml Balance 2480 ml 1000 ml Intake Oral 1680 ml IV Total 800 ml 1000 ml # Voids 2 2 Height (Feet): 5 Height (Inches): 7.00 Weight (Pounds): 188 Objective Elderly man NCAT supple CTA RR abd soft ND NT no edema Assessment/Plan Assessment/Plan: Assessment - diarrhea - hematochezia - pancreatitis Recommendations - monitor CBC, Lipase, LFT - GI preparation - Colonoscopy Monday Tristan Bhardwaj MD Aug 02, 2020 18:18
[2020-08-02 18:41] VITALS: BP 140/81
--- NOTE | 2020-08-02 19:39 | NUR ---
NURSE HAND-OFF: Important Events on Shift:[started bowel prep, accepted so far 1/2 gallon] Patient Status: [] Diet: [Clear liquid, NPO p MN] Pending Orders: [CBC, BMP, Lipase] Pending Results/Labs:[] Pending MD notification:[] Latest Vital Signs: Temperature 97.4 , Pulse 77 , B/P 140 /81 , Respiratory Rate 20 , O2 SAT 94 , Room Air, O2 Flow Rate . Vital Sign Comment: [] Latest Carreon Fall Score: 20 Fall Risk: Low Risk Safety Measures: Call light Within Reach, Bed Alarm Zone 1, Side Rails Side Rails x2, Bed position Low and Locked. Fall Precautions: Patient Fall Education Report given to [MAURO Obrien].
--- NOTE | 2020-08-02 19:58 | NUR ---
NURSES NOTE: Received report from outgoing RN. Rounds made. Pt up in chair, A/OX4, denies pain currently. No outward s/s of distress noted. Breathing is even and unlabored on RA. NPO at midnight. IV in place, infusing IVF without incident. All due medications will be administered. Bed at lowest level, call light within reach. Pt will continue to be monitored.
[2020-08-02 20:00] VITALS: BP 150/70
--- NOTE | 2020-08-02 22:14 | Consultation ---
DATE OF CONSULTATION: 07/30/2020 GASTROENTEROLOGY CONSULTATION CHIEF COMPLAINT: Pancreatitis. HISTORY OF PRESENT ILLNESS: The patient is a very pleasant 75-year-old male with history of colon cancer, status post resection 5 years ago, has a history of on and off diarrhea, and some rectal bleeding abdominal pain. Laboratory is consistent with pancreatitis. CT of the abdomen and pelvis showed evidence of fullness in the pancreatic head, questionable liver lesion suspicious for metastasis. PAST MEDICAL HISTORY: 1. Colon cancer, status post resection. 2. Chronic diarrhea. ALLERGIES: No known drug allergies. MEDICATIONS: Please see medication reconciliation list. SOCIAL HISTORY: Currently, the patient denies any recent tobacco, alcohol, or drug abuse. PAST SURGICAL HISTORY: History of partial colectomy. PHYSICAL EXAMINATION: VITAL SIGNS: Temperature is 97.4, pulse is 46, respirations 18, blood pressure is 130/65. HEENT: Normocephalic and atraumatic. Sclerae anicteric. NECK: Supple. No evidence of obvious lymphadenopathy. CARDIOVASCULAR: Regular rate and rhythm. Plus S1-S2. LUNGS: Clear to auscultation bilaterally. ABDOMEN: . There is a scar from prior abdominal surgery. No rebound. No guarding. No peritoneal sign. EXTREMITIES: No cyanosis, no clubbing, no edema. LABORATORY DATA: White count is 3.1, hemoglobin 10, hematocrit 34, platelet count is 206. Sodium 144, potassium 3.7. Liver function grossly normal except for alkaline phosphatase of 256, lipase is 1179. ASSESSMENT: A 75-year-old male with pancreatitis, history of colon cancer, liver lesions, questionable for mets. PLAN: Repeat labs for tomorrow. IV hydration, pain control. Send tumor markers. Order MRI of the abdomen for further evaluation of the liver lesions. Order lipid panel. I want to thank, Dr. Antoine Kay, for this kind referral. Abimael Alston M.D. DR: CONSTANCE JOB#: [id number] CC: Antoine Kay M.D.; Fax#: [phone]
[2020-08-03] VITALS: BP 158/90
--- NOTE | 2020-08-03 02:29 | History and Physical Report ---
DATE OF ADMISSION: 07/29/2020 CHIEF COMPLAINT: Abdominal pain and diarrhea. HISTORY OF PRESENT ILLNESS: This is a 75-year-old gentleman with past medical history significant for history of colon cancer, status post resection 5 years ago, and history of chronic diarrhea, who presented to the hospital complaining about abdominal pain associated with vomiting, nausea, and diarrhea. The patient drove from [place] where he lives to have a new physician who is part of staff in hospital. The patient has been complaining of diarrhea on and off for the past 5 years. Intermittent bleeding reported. Pain is 8/10 in intensity, mostly in the lower abdominal area. Diarrhea is occasionally watery and mixed with blood. He does usually take loperamide for diarrhea, which is helpful. Shortly after initial evaluation in the emergency department, the patient was noted to have acute pancreatitis with elevated lipase. Subsequently, the patient was admitted to the hospital with abdominal pain, most likely secondary to acute pancreatitis. Noted the patient had a similar pain and evaluated at [facility], who had laboratory and CT scan performed according to the discharge paper CT scan results were not indicated. He was admitted to the hospital, but discharged with a diagnosis of chronic pain. He denies any COVID exposure. Denies any fever, chills, shortness of breath, sore throat, chest pain, palpitation, depression, anxiety, or headache. Shortly after initial evaluation in the emergency department, the patient was admitted to the hospital with acute pancreatitis. PAST MEDICAL HISTORY AND PAST SURGICAL HISTORY: Significant for colon cancer, diagnosed about 5 years ago, status post subtotal colectomy with J-pouch placement. MEDICATIONS: At home, please refer to medication reconciliation. ALLERGIES: No known drug allergies. SOCIAL HISTORY: Denies any alcohol or substance abuse. He lives in [place]. FAMILY HISTORY: Noncontributory. REVIEW OF SYSTEMS: Mostly as above. Denies any dysuria, frequency, or hematuria. Denies any hemoptysis or hematochezia. Denies any bright red blood per rectum. Denies any loss of consciousness. Denies any fall or head trauma. Complained about nausea, diarrhea, and abdominal pain. PHYSICAL EXAMINATION: VITAL SIGNS: On admission, temperature 98.2, pulse of 70, respirations 24, and blood pressure 130/75. GENERAL: The patient is awake, responsive, in no acute distress. HEAD AND NECK: Pupils are equal and reactive to light. Extraocular movements intact. Neck was supple. No JVD. LUNGS: Good air entry. No wheezing or rales. HEART: S1 and S2. Regular rhythm. No murmur or gallop. ABDOMEN: Soft and nondistended. Tenderness in the epigastric area. No rebound. No fluid shift. Mildly obese. EXTREMITIES: No cyanosis, clubbing, or edema. NEUROLOGIC: Cranial nerves II through XII are grossly intact. Motor is 5/5 in all extremities. Gait is intact. RECTAL AND : Refused and deferred. PSYCHIATRIC: Mood and affect is intact. LABORATORY DATA: Laboratory from the emergency department, WBC of 2.8, hemoglobin 10.8, hematocrit 34, and platelets are 212,000. Sodium 143, potassium 2.2, chloride 111, bicarbonate is 23, BUN 8, creatinine is 1.1, GFR greater than 60, and glucose is 125. Alkaline phosphatase is 256, total protein is 6.1, and total albumin is 2.7. Lipase is 1927. PT of 11, INR 1.1, and PTT of 28. Urinalysis, +4 glucose, otherwise unremarkable. ASSESSMENT: 1. Abdominal pain, most likely secondary to acute pancreatitis. 2. Chronic diarrhea. 3. History of colon cancer, status post resection. 4. Mild obesity. PLAN: Admit the patient to medical floor. We kept the patient NPO except medications. Start the patient on IV hydration. Pain medication. Code status is Full Code. DVT prophylaxis, heparin subcutaneous. Will follow up with Dr. Phillip, consultation from General Surgery, as well as Dr. Alston from GI. Antoine Kay M.D. DR: BILLY JOB#: [id number] CC:
[2020-08-03] MEDS: D5 1/2NS w/KCl 20mEq 1,000 ML IV SCH ×3 (03:40→17:20)
[2020-08-03 04:00] VITALS: BP 120/54
[2020-08-03] MEDS: Heparin 5000 units/ml inj SUBQ SCH ×3 (05:45→21:27)
--- NOTE | 2020-08-03 07:53 | NUR ---
NURSE HAND-OFF: Important Events on Shift:[Pt colonoscopy could be on hold due to covid test not being done. GI LAB will f/u with Gamaliel to see if procedure will be carried out. Pt NPO since 0000.] Patient Status: [STABLE] Diet: [NPO] Pending Orders: [N/A] Pending Results/Labs:[[facility] LABS. PT refused and asked to have them done at a later time] Pending MD notification:[n/a] Latest Vital Signs: Temperature 98.6 , Pulse 57 , B/P 120 /54 , Respiratory Rate 20 , O2 SAT 93 , Room Air, O2 Flow Rate . Vital Sign Comment: [wnl] Latest Carreon Fall Score: 20 Fall Risk: Low Risk Safety Measures: Call light Within Reach, Bed Alarm Zone 1, Side Rails Side Rails x2, Bed position Low and Locked. Fall Precautions: Patient Fall Education Report given to [MAURO Ross].
--- NOTE | 2020-08-03 07:55 | NUR ---
NURSE NOTES: Patient lying in bed awake. No complain of pain or distress at this time. IV and Skin intact and dry. Bed lowest position and side rails up. Call light within reach. Will continue to monitor.
[2020-08-03 08:00] VITALS: BP 141/61
--- NOTE | 2020-08-03 08:28 | Anethesia Preoperative Eval ---
Anesthesia Pre-op PMH/ROS General Date of Evaluation: Aug 03, 2020 Time of Evaluation: 08:26 Anesthesiologist: mian ASA Score: ASA 4 Mallampati Score Class I : Soft palate, uvula, fauces, pillars visible Class II: Soft palate, uvula, fauces visible Class III: Soft palate, base of uvula visible Class IV: Only hard plate visible Mallampati Classification: Class II Surgeon: tavon Diagnosis: pancreatitis Surgical Procedure: colonoscopy Anesthesia History: none Social History: smoking - nonsmoker Family History: no anesthesia problems Allergies: Coded Allergies: No Known Allergies (Unverified , 07/29/20) Medications: see eMAR Patient NPO?: Yes Past Medical History Gastrointestinal/Genitourinary: Reports: other - abdominal pain, nausea, vomiting, diarrhea, colon cancer, colectomy Anesthesia Pre-op Phys. Exam Physician Exam Last Vital Signs Date Time Temp Pulse Resp B/P (MAP) Pulse Ox O2 Delivery O2 Flow Rate FiO2 08/03/20 04:00 98.6 57 20 120/54 (76) 93 08/02/20 21:00 Room Air Constitutional: NAD Neurologic: other - lethargic Cardiovascular: other - bradycardic Respiratory: other - decreased breath sounds Gastrointestinal: S/NT/ND Airway Exam Mallampati Score: Class II MO: limited Neck: short TMD: 2fb ROM: limited Anesthesia Pre-op A/P Labs Labs Test 08/01/20 05:20 08/03/20 09:25 White Blood Count 2.9 K/UL (4.8-10.8) 1.9 K/UL (4.8-10.8) Red Blood Count 3.83 M/UL (4.70-6.10) 3.58 M/UL (4.70-6.10) Hemoglobin 11.1 G/DL (14.2-18.0) 9.9 G/DL (14.2-18.0) Hematocrit 33.7 % (42.0-52.0) 31.3 % (42.0-52.0) Mean Corpuscular Volume 88 FL (80-99) 87 FL (80-99) Mean Corpuscular Hemoglobin 29.1 PG (27.0-31.0) 27.7 PG (27.0-31.0) Mean Corpuscular Hemoglobin Concent 33.1 G/DL (32.0-36.0) 31.7 G/DL (32.0-36.0) Red Cell Distribution Width 16.4 % (11.6-14.8) 16.3 % (11.6-14.8) Platelet Count 179 K/UL (150-450) 154 K/UL (150-450) Mean Platelet Volume 5.3 FL (6.5-10.1) 5.9 FL (6.5-10.1) Neutrophils (%) (Auto) % (45.0-75.0) % (45.0-75.0) Lymphocytes (%) (Auto) % (20.0-45.0) % (20.0-45.0) Monocytes (%) (Auto) % (1.0-10.0) % (1.0-10.0) Eosinophils (%) (Auto) % (0.0-3.0) % (0.0-3.0) Basophils (%) (Auto) % (0.0-2.0) % (0.0-2.0) Differential Total Cells Counted 100 100 Neutrophils % (Manual) 59 % (45-75) 53 % (45-75) Lymphocytes % (Manual) 23 % (20-45) 18 % (20-45) Monocytes % (Manual) 15 % (1-10) 27 % (1-10) Eosinophils % (Manual) 2 % (0-3) 2 % (0-3) Basophils % (Manual) 1 % (0-2) 0 % (0-2) Band Neutrophils 0 % (0-8) 0 % (0-8) Platelet Estimate Adequate Adequate Platelet Morphology Normal Normal Anisocytosis 1+ 1+ Sodium Level 143 MMOL/L (136-145) 140 MMOL/L (136-145) Potassium Level 4.2 MMOL/L (3.5-5.1) 3.7 MMOL/L (3.5-5.1) Chloride Level 111 MMOL/L (98-107) 107 MMOL/L (98-107) Carbon Dioxide Level 24 MMOL/L (21-32) 29 MMOL/L (21-32) Anion Gap 9 mmol/L (5-15) 4 mmol/L (5-15) Blood Urea Nitrogen 7 mg/dL (7-18) 6 mg/dL (7-18) Creatinine 1.0 MG/DL (0.55-1.30) 0.8 MG/DL (0.55-1.30) Estimat Glomerular Filtration Rate > 60 mL/min (>60) > 60 mL/min (>60) Glucose Level 76 MG/DL (74-106) 99 MG/DL (74-106) Calcium Level 8.8 MG/DL (8.5-10.1) 8.2 MG/DL (8.5-10.1) Total Bilirubin 0.5 MG/DL (0.2-1.0) Aspartate Amino Transf (AST/SGOT) 28 U/L (15-37) Alanine Aminotransferase (ALT/SGPT) 24 U/L (12-78) Alkaline Phosphatase 228 U/L (46-116) Total Protein 6.2 G/DL (6.4-8.2) Albumin 2.6 G/DL (3.4-5.0) Globulin 3.6 g/dL Albumin/Globulin Ratio 0.7 (1.0-2.7) Amylase Level 181 U/L (25-115) Lipase 1740 U/L (73-393) 384 U/L (73-393) Hypochromasia 1+ Risk Assessment & Plan Assessment: asa4 Plan: patient to be transferred to telemetry unit. optimize cardiac status prior to procedure, then mac Status Change Before Surgery: Yes - bradycardia down to 30's and 40's Pre-Antibiotics Drug: Merari Velazquez MD Aug 03, 2020 08:28
[2020-08-03] MEDS ORDERED: Atropine Inj 1mg/10ml Syr IVP PRN (08:30)
[2020-08-03] MEDS ORDERED: fentaNYL 100 mcg/2 mL IV PRN (08:30)
[2020-08-03] MEDS ORDERED: Midazolam 2mg/2ml Inj IVP PRN (08:30)
[2020-08-03] MEDS ORDERED: DiphenhydrAMINE 50mg/ml Inj IVP PRN (08:30)
[2020-08-03 09:43] LABS: HEMATOCRIT 31.3 % (42.0-52.0); HEMOGLOBIN 9.9 G/DL (14.2-18.0); MEAN CORPUSCULAR VOLUME 87 FL (80-99); PLATELET COUNT 154 K/UL (150-450); RED BLOOD COUNT 3.58 M/UL (4.70-6.10); RED CELL DISTRIBUTION WIDTH 16.3 % (11.6-14.8)
[2020-08-03 09:51] LABS: WHITE BLOOD COUNT 1.9 K/UL (4.8-10.8)
[2020-08-03 10:03] LABS: ANION GAP 4 mmol/L (5-15); BLOOD UREA NITROGEN 6 mg/dL (7-18); CALCIUM 8.2 MG/DL (8.5-10.1); CARBON DIOXIDE 29 MMOL/L (21-32); CHLORIDE 107 MMOL/L (98-107); CREATININE 0.8 MG/DL (0.55-1.30); POTASSIUM 3.7 MMOL/L (3.5-5.1); SODIUM 140 MMOL/L (136-145)
--- NOTE | 2020-08-03 11:55 | Pre-Procedure Note/Attestation ---
Pre-Procedure Note/Attestation Complete Prior to Procedure Planned Procedure: not applicable Procedure Narrative: colonoscopy Indications for Procedure Pre-Operative Diagnosis: gib Attestation I attest that I discussed the nature of the procedure; its benefits; risks and complications; and alternatives (and the risks and benefits of such alternatives), prior to the procedure, with the patient (or the patient's legal lifeline representatives). I attest that, if there was a reasonable possibility of needing a blood transfusion, the patient (or the patient's legal lifeline representatives) was given the [facility] standardized written summary, pursuant to the [employer] Blood Safety Act ([place] Health and Safety Code # 1645, as amended). I attest that I re-evaluated the patient just prior to the surgery and that there has been no change in the patient's H&P, except as documented below: Abimael Alston MD Aug 03, 2020 11:55
[2020-08-03 12:00] VITALS: BP 158/64
--- NOTE | 2020-08-03 12:40 | General Progress Note ---
Subjective ROS Limited/Unobtainable: Yes Allergies: Coded Allergies: No Known Allergies (Unverified , 07/29/20) Objective Last 24 Hour Vital Signs Date Time Temp Pulse Resp B/P (MAP) Pulse Ox O2 Delivery O2 Flow Rate FiO2 08/03/20 09:00 Room Air 08/03/20 08:00 97.7 52 20 141/61 (87) 97 08/03/20 04:00 98.6 57 20 120/54 (76) 93 08/03/20 00:00 99.6 62 20 158/90 (112) 93 08/02/20 21:00 Room Air 08/02/20 20:00 100.0 63 18 150/70 (96) 93 08/02/20 19:13 97.4 08/02/20 18:41 77 140/81 (100) 08/02/20 16:00 97.4 62 20 163/81 (108) 94 Intake and Output 08/02/20 08/03/20 19:00 07:00 Intake Total 1200 ml 4000 ml Balance 1200 ml 4000 ml Intake Oral 500 ml 4000 ml IV Total 700 ml # Voids 1 8 # Bowel Movements 8 Laboratory Tests 08/03/20 09:25: White Blood Count 1.9*L, Red Blood Count 3.58L, Hemoglobin 9.9L, Hematocrit 31.3L, Mean Corpuscular Volume 87, Mean Corpuscular Hemoglobin 27.7, Mean Corpuscular Hemoglobin Concent 31.7L, Red Cell Distribution Width 16.3H, Platelet Count 154, Mean Platelet Volume 5.9L, Neutrophils (%) (Auto) , Lymphocytes (%) (Auto) , Monocytes (%) (Auto) , Eosinophils (%) (Auto) , Basophils (%) (Auto) , Differential Total Cells Counted 100, Neutrophils % (Manual) 53, Lymphocytes % (Manual) 18L, Monocytes % (Manual) 27H, Eosinophils % (Manual) 2, Basophils % (Manual) 0, Band Neutrophils 0, Platelet Estimate Adequate, Platelet Morphology Normal, Hypochromasia 1+, Anisocytosis 1+, Sodium Level 140, Potassium Level 3.7, Chloride Level 107, Carbon Dioxide Level 29, Anion Gap 4L, Blood Urea Nitrogen 6L, Creatinine 0.8, Estimat Glomerular Filtration Rate > 60, Glucose Level 99, Calcium Level 8.2L, Lipase 384 Height (Feet): 5 Height (Inches): 7.00 Weight (Pounds): 188 General Appearance: lethargic EENT: normal ENT inspection Neck: supple Cardiovascular: bradycardia Respiratory/Chest: decreased breath sounds Abdomen: normal bowel sounds, non tender, soft Extremities: non-tender Assessment/Plan Assessment/Plan: pancreatitis h/o colon CA liver lesions ? mets fu tumor markers pain control colonoscopy today was canceled given patient is now neutropenic and HR was in 30 S plan colonoscopy when more stable Abimael Alston MD Aug 03, 2020 12:40
--- NOTE | 2020-08-03 12:46 | NUR ---
NURSE NOTES: Unable to do Colonoscopy due to Bradycardia. Spoke to regarding patient and new Cardiology consult received. Order read back and carried out.
--- NOTE | 2020-08-03 13:30 | NUR ---
NURSE NOTES: Report received from Cody WADE. Patient transferred from d/t bradycardia following colonscopy prep. AxOx4, not in pain or distress. Pt hooked to tele monitor, HR 60's, NSR. PIV on right upper arm patent and infusing D5 1/2 NS + 20KCL @ 100cc/hr. PIV on left upper arm patent and intact. Pt is ambulatory and continent. Bed low and locked, siderails up x2, call light placed within reach and instructed to call nurse for assistance. Will continue to monitor.
--- NOTE | 2020-08-03 13:40 | NUR ---
NURSE NOTES: Patient transferred to [facility] and given report to Tania. Patient in stable condition. Notified with new consult.
--- NOTE | 2020-08-03 13:51 | Surgery Progress Note ---
Surgery Progress Note Subjective Additional Comments Patient was planned for scope identified to be bradycardic transfer to telemetry cardiology input otherwise pancreatitis resolving no pain tolerating diet no n ausea vomiting fever chills. Objective Last 24 Hour Vital Signs Date Time Temp Pulse Resp B/P (MAP) Pulse Ox O2 Delivery O2 Flow Rate FiO2 08/03/20 12:00 98.0 41 22 158/64 (95) 96 08/03/20 09:00 Room Air 08/03/20 08:00 97.7 52 20 141/61 (87) 97 08/03/20 04:00 98.6 57 20 120/54 (76) 93 08/03/20 00:00 99.6 62 20 158/90 (112) 93 08/02/20 21:00 Room Air 08/02/20 20:00 100.0 63 18 150/70 (96) 93 08/02/20 19:13 97.4 08/02/20 18:41 77 140/81 (100) 08/02/20 16:00 97.4 62 20 163/81 (108) 94 I&O Intake and Output 08/02/20 08/03/20 19:00 07:00 Intake Total 1200 ml 4000 ml Balance 1200 ml 4000 ml Intake Oral 500 ml 4000 ml IV Total 700 ml # Voids 1 8 # Bowel Movements 8 Cardiovascular: RSR Respiratory: clear Abdomen: soft, flat, non-tender, present bowel sounds, non-distended Extremities: no edema, no tenderness, no cyanosis Laboratory Tests Test 08/03/20 09:25 White Blood Count 1.9 K/UL (4.8-10.8) *L Red Blood Count 3.58 M/UL (4.70-6.10) L Hemoglobin 9.9 G/DL (14.2-18.0) L Hematocrit 31.3 % (42.0-52.0) L Mean Corpuscular Volume 87 FL (80-99) Mean Corpuscular Hemoglobin 27.7 PG (27.0-31.0) Mean Corpuscular Hemoglobin Concent 31.7 G/DL (32.0-36.0) L Red Cell Distribution Width 16.3 % (11.6-14.8) H Platelet Count 154 K/UL (150-450) Mean Platelet Volume 5.9 FL (6.5-10.1) L Neutrophils (%) (Auto) % (45.0-75.0) Lymphocytes (%) (Auto) % (20.0-45.0) Monocytes (%) (Auto) % (1.0-10.0) Eosinophils (%) (Auto) % (0.0-3.0) Basophils (%) (Auto) % (0.0-2.0) Differential Total Cells Counted 100 Neutrophils % (Manual) 53 % (45-75) Lymphocytes % (Manual) 18 % (20-45) L Monocytes % (Manual) 27 % (1-10) H Eosinophils % (Manual) 2 % (0-3) Basophils % (Manual) 0 % (0-2) Band Neutrophils 0 % (0-8) Platelet Estimate Adequate Platelet Morphology Normal Hypochromasia 1+ Anisocytosis 1+ Sodium Level 140 MMOL/L (136-145) Potassium Level 3.7 MMOL/L (3.5-5.1) Chloride Level 107 MMOL/L (98-107) Carbon Dioxide Level 29 MMOL/L (21-32) Anion Gap 4 mmol/L (5-15) L Blood Urea Nitrogen 6 mg/dL (7-18) L Creatinine 0.8 MG/DL (0.55-1.30) Estimat Glomerular Filtration Rate > 60 mL/min (>60) Glucose Level 99 MG/DL (74-106) Calcium Level 8.2 MG/DL (8.5-10.1) L Lipase 384 U/L (73-393) Plan Problems: (1) Acute pancreatitis Assessment & Plan: 75-year-old male with pancreatitis. No EtOH history. Seems to be having intermittent episodes of pancreatitis as states that the symptoms not as first time and is not a pancreatitis in the past. States that he was told potentially in the past he may have pancreatic cancer but is unaware. Does not have any of his medical records with him and is a poor historian in the details. Elevated lipase trending down with IV fluids. Pain improving. Tolerating diet. No acute surgical intervention planned at this time. Conservative management of medical acute pancreatitis. lipase improving pain resolved tolerating diet There are several lesions identified in the liver. There is only one lesion in the caudate lobe which demonstrates typical appearance of a simple cyst. It is circumscribed with smooth margin and fluid intensity on all sequences without enhancement. The other lesions identified in segments 6 and 7 of the right lobe of the liver are not a simple cyst by MR criteria. No fluid intensity noted on T2 images. They show diminished enhancement compared to adjacent liver parenchyma on postcontrast images. These vary in size with a few which are barely perceptible 2 largest measuring 1.8 cm in segment 6. With the patient's history, these are suspicious for metastatic disease. Slight scalloping of the lateral margin of the right lobe of the liver noted and there is suggestion of slight asymmetric enhancement of the underlying parenchyma noted. Spleen is homogeneous. Tiny gallstone noted layering in the gallbladder. There is no intrahepatic or extrahepatic ductal dilatation. There is slight prominence of the pancreatic duct near the neck region but no discrete parenchymal pancreatic lesion identified. Adrenals are normal. There are multiple bilateral renal cysts. There is no signs of bowel distention. No ascites demonstrated. There is no adenopathy noted. Visualized portions of the lumbar spine appear unremarkable. IMPRESSION: MULTIPLE HEPATIC LESIONS NOTED, ONLY ONE OF WHICH IN THE CAUDATE LOBE APPEARS TO BE A SIMPLE CYST. THE OTHER LESIONS DO NOT MEET MR CRITERIA FOR SIMPLE CYST AND METASTATIC DISEASE SHOULD BE CONSIDERED GIVEN THE PATIENT'S CLINICAL HISTORY. CONSIDER PET/CT FOR CONFIRMATION IF CLINICALLY INDICATED. TINY GALLSTONE. SLIGHT PROMINENCE OF PANCREATIC DUCT BUT NO DISCRETE PANCREATIC LESION SEEN PRESENTLY. RENAL CYSTS. (2) Abdominal pain Assessment & Plan: Patient complaining of abdominal pain likely related to pancreatitis also complaining of pain with multiple episodes of diarrhea and some anal pain. Patient with history of colon cancer status post subtotal colectomy with what seems to be a J-pouch having persistent diarrhea multiple episodes a day followed by potential incontinence as well described by patient. Afebrile hemodynamic stable otherwise okay. Abdominal exam fairly benign. Prior incisions noted well-healed. Patient is interested in having a evaluation for a continent ileostomy. Dr. Kenn Dalton will evaluate patient as patient has researched him prior and has come to this facility to be seen by him as well. CT scan reviewed. Patient has multiple liver lesions that are concerning for potential metastatic disease. MRI ordered. Will need further work-up and management which can be done in outpatient setting by patient's PCP and oncologist once patient's pancreatitis is improved. Thank you will follow with recommendations Mild dependent atelectasis noted in both lung bases. There are several low densities identified in the caudate and right lobe of the liver. A few are circumscribed and low density resembling cysts but there are several in segment 6 and segment 7 of the liver which are not cystic. Patient does have known history of colon cancer and metastatic hepatic lesions is suspected. There is some low-density scalloping of the lateral margin right lobe of liver on images 22-25 which may reflect serosal disease as well. The spleen is homogeneous. Gallbladder is without sludge or stone and there is no wall thickening. Pancreas is mostly homogeneous. There is a focus of coarse calcification at the pancreatic head. Adrenals are normal in morphology. Multiple bilateral exophytic cysts of the kidneys noted. Postoperative changes noted near the GE junction. Small bowel loops are nondistended. Patient is status post colectomy. Anastomotic sutures noted in the region of the rectum. There is some soft tissue thickening in the presacral space most likely postoperative changes but focal recurrent tumor cannot be excluded. The appendix is not visualized. There is no free fluid or free air. No pathologic adenopathy demonstrated. Urinary bladder appears unremarkable. There is no suspicious superficial soft tissue or osseous abnormality. IMPRESSION: MULTIPLE LOW-DENSITY LESIONS IN THE LIVER, SOME OF WHICH ARE NOT SIMPLE CYSTS. WITH HISTORY OF COLON CANCER, METASTATIC HEPATIC LESIONS SUSPECTED. COARSE CALCIFICATION AT THE PANCREATIC HEAD. QUESTION HISTORY OF OLD PANCREATITIS. RENAL CYSTS. POSTOPERATIVE CHANGES NEAR THE GE JUNCTION. ALSO APPARENT COLECTOMY. SOME SOFT TISSUE THICKENING IN THE PRESACRAL SPACE MOST LIKELY POSTOPERATIVE CHANGES BUT FOCAL RECURRENT TUMOR CANNOT BE EXCLUDED. (3) Nausea vomiting and diarrhea Assessment & Plan: d/c planning outpatient f/u for oncology work up at [facility] with his oncologist Alfredo Phillip Aug 03, 2020 13:51
--- NOTE | 2020-08-03 15:06 | Cardiac Electrophysiology PN ---
Subjective Subjective [id number] Objective Last 24 Hour Vital Signs Date Time Temp Pulse Resp B/P (MAP) Pulse Ox O2 Delivery O2 Flow Rate FiO2 08/03/20 12:00 98.0 41 22 158/64 (95) 96 08/03/20 09:00 Room Air 08/03/20 08:00 97.7 52 20 141/61 (87) 97 08/03/20 04:00 98.6 57 20 120/54 (76) 93 08/03/20 00:00 99.6 62 20 158/90 (112) 93 08/02/20 21:00 Room Air 08/02/20 20:00 100.0 63 18 150/70 (96) 93 08/02/20 19:13 97.4 08/02/20 18:41 77 140/81 (100) 08/02/20 16:00 97.4 62 20 163/81 (108) 94 Intake and Output 08/02/20 08/03/20 19:00 07:00 Intake Total 1200 ml 4000 ml Balance 1200 ml 4000 ml Intake Oral 500 ml 4000 ml IV Total 700 ml # Voids 1 8 # Bowel Movements 8 Laboratory Tests Test 08/03/20 09:25 White Blood Count 1.9 K/UL (4.8-10.8) *L Red Blood Count 3.58 M/UL (4.70-6.10) L Hemoglobin 9.9 G/DL (14.2-18.0) L Hematocrit 31.3 % (42.0-52.0) L Mean Corpuscular Volume 87 FL (80-99) Mean Corpuscular Hemoglobin 27.7 PG (27.0-31.0) Mean Corpuscular Hemoglobin Concent 31.7 G/DL (32.0-36.0) L Red Cell Distribution Width 16.3 % (11.6-14.8) H Platelet Count 154 K/UL (150-450) Mean Platelet Volume 5.9 FL (6.5-10.1) L Neutrophils (%) (Auto) % (45.0-75.0) Lymphocytes (%) (Auto) % (20.0-45.0) Monocytes (%) (Auto) % (1.0-10.0) Eosinophils (%) (Auto) % (0.0-3.0) Basophils (%) (Auto) % (0.0-2.0) Differential Total Cells Counted 100 Neutrophils % (Manual) 53 % (45-75) Lymphocytes % (Manual) 18 % (20-45) L Monocytes % (Manual) 27 % (1-10) H Eosinophils % (Manual) 2 % (0-3) Basophils % (Manual) 0 % (0-2) Band Neutrophils 0 % (0-8) Platelet Estimate Adequate Platelet Morphology Normal Hypochromasia 1+ Anisocytosis 1+ Sodium Level 140 MMOL/L (136-145) Potassium Level 3.7 MMOL/L (3.5-5.1) Chloride Level 107 MMOL/L (98-107) Carbon Dioxide Level 29 MMOL/L (21-32) Anion Gap 4 mmol/L (5-15) L Blood Urea Nitrogen 6 mg/dL (7-18) L Creatinine 0.8 MG/DL (0.55-1.30) Estimat Glomerular Filtration Rate > 60 mL/min (>60) Glucose Level 99 MG/DL (74-106) Calcium Level 8.2 MG/DL (8.5-10.1) L Lipase 384 U/L (73-393) Frankie Arevalo MD Aug 03, 2020 15:06
--- NOTE | 2020-08-03 15:39 | NUR ---
CASE MANAGEMENT:REVIEW 08/03/20 SI: ACUTE PANCREATITIS H/O COLON CANCER. LIVER LESIONS...METS? 98.0 52 20 141/61 96% ON RA WBC-1.9 IS: HYDRALAZINE PO BID HEPARIN SQ Q8HRS IVF@100/HR : TRANSFERRED FROM MED/SURG TO TELEMETRY DCP: FROM HOME IN [place] PLAN: RESCHEDULE COLONOSCOPY ~ NEUTROPENIC AND HR TO 41 2DECHO NEO GUADARRAMA
--- NOTE | 2020-08-03 15:59 | Consultation ---
DATE OF CONSULTATION: 08/03/2020 CARDIOLOGY CONSULTATION REFERRING PHYSICIAN: Antoine Kay M.D. REASON FOR CONSULTATION: Bradycardia, heart rate down to 40s. HISTORY OF PRESENT ILLNESS: The patient is a 75-year-old gentleman with history of hypertension, colon cancer, status post resection 5 years ago, as well as chronic diarrhea, who presents to the hospital with abdominal pain and vomiting and nausea and diarrhea. The patient drove from [place], where he lives, to have a new physician in this hospital. The patient's pain was 8/10 in intensity, mostly in the lower abdominal area. After evaluation emergently, he was noted to have acute pancreatitis, elevated lipase. The patient was admitted. The patient was scheduled for colonoscopy today. However, it was canceled due to his significant bradycardia, heart rate in the 40s. The procedure was canceled and cardiology consultation was obtained for further evaluation and management. REVIEW OF SYSTEMS: Negative other than what was mentioned in history of present illness. PAST MEDICAL HISTORY: As mentioned above. FAMILY HISTORY: Noncontributory. ALLERGIES: He has no known drug allergies. MEDICATIONS: Per reconciliation. SOCIAL HISTORY: He has no history of alcohol or substance use. Lives in [place]. PHYSICAL EXAMINATION: VITAL SIGNS: Blood pressure 158/64, pulse is 41, respirations are 20, temperature 98. HEAD AND NECK: No JVD. LUNGS: Clear. CARDIOVASCULAR: Bradycardic S1 and S2 with no gallop. ABDOMEN: Soft and nontender. EXTREMITIES: No pitting edema. LABORATORY AND DIAGNOSTIC DATA: His labs show white count of 1.9, hemoglobin 9.9, hematocrit 31.3, and platelet count is 154. Sodium 140, potassium 3.7, BUN of 6, creatinine of 0.8, and glucose of 99. His lipase was 1740. ASSESSMENT AND PLAN: 1. Profound bradycardia. The procedure was canceled. The heart rate was in the 30s. The patient is off of any AV julius blocking agents and the patient received atropine. I will start the patient on hydralazine. That may cause some reflex tachycardia to improve his heart rate. 2. Hypertension. Again start hydralazine 25 mg b.i.d. 3. Acute pancreatitis with high lipase. Follow up with Dr. Alston. 4. History of colon cancer with now liver lesions, questionable metastasis. Follow up tumor markers. Colonoscopy was rescheduled as the patient's heart rate was in the 30s. 5. Neutropenia, white count of 1.9, in reverse isolation. Further evaluation is in progress. It is of note that the patient was also evaluated by Dr. Kenn Dalton who, based on age alone, felt that he is not a candidate to undergo creation of a Calix continent ileostomy. Thank you very much Dr. Kay for allowing me to participate in the care of this patient. Please do not hesitate to contact me for any questions regarding my evaluation. Frankie Arevalo M.D. DR: JIMBO JOB#: [id number] CC:
[2020-08-03 16:00] VITALS: BP 162/52
[2020-08-03] MEDS: HydrALAZINE 25mg tab ORAL SCH (17:08)
--- NOTE | 2020-08-03 18:55 | Internal Med Progress Note ---
Subjective Date of Service: Aug 03, 2020 Physician Name Duke Salcedo Attending Physician Antoine Kay MD Current Medications Medications (Trade) Dose Ordered Sig/Stacy Route PRN Reason Start Time Stop Time Status Last Admin Dose Admin Acetaminophen (Tylenol) 650 mg Q6H PRN ORAL Temp >100.5 07/30/20 00:15 08/29/20 00:14 Dextrose/ Electrolytes 1,000 ml @ 100 mls/hr Q10H IV 07/30/20 00:15 08/29/20 00:14 08/03/20 17:20 Heparin Sodium (Porcine) (Heparin 5000 units/ml) 5,000 units EVERY 8 HOURS SUBQ 07/30/20 06:00 09/13/20 05:59 08/03/20 14:11 Hydralazine HCl (Apresoline) 25 mg BID ORAL 08/03/20 18:00 11/01/20 17:59 08/03/20 17:08 Loperamide HCl (Imodium) 2 mg Q4H PRN ORAL Diarrhea 07/30/20 16:00 08/29/20 15:59 07/31/20 08:15 Morphine Sulfate (Morphine Sulfate) 2 mg Q4H PRN IVP FOR MODERATE PAIN 4 TO 6 07/30/20 00:15 08/06/20 00:14 Morphine Sulfate (Morphine Sulfate) 4 mg Q4H PRN IVP Severe Pain (Pain Scale 7-10) 07/30/20 00:15 08/06/20 00:14 08/02/20 18:43 Ondansetron HCl (Zofran) 4 mg Q4H PRN IVP Nausea & Vomiting 07/30/20 00:15 08/29/20 00:14 08/03/20 15:26 Zolpidem Tartrate (Ambien) 5 mg HSPRN PRN ORAL Insomnia 07/30/20 21:15 08/06/20 21:14 08/02/20 01:02 Allergies: Coded Allergies: No Known Allergies (Unverified , 07/29/20) ROS Limited/Unobtainable: Yes Subjective 75 YO M admitted with abdominal pain. Now acute pancreatitis and liver masses. Cover for Int Med-DR Kay. Colonoscopy cancelled due to neutropenia and bradycardia Objective Last Vital Signs Date Time Temp Pulse Resp B/P (MAP) Pulse Ox O2 Delivery O2 Flow Rate FiO2 2/1/21 17:08 162/52 08/03/20 16:00 98.1 48 20 97 08/03/20 09:00 Room Air Laboratory Tests Test 08/03/20 09:25 White Blood Count 1.9 K/UL (4.8-10.8) *L Red Blood Count 3.58 M/UL (4.70-6.10) L Hemoglobin 9.9 G/DL (14.2-18.0) L Hematocrit 31.3 % (42.0-52.0) L Mean Corpuscular Volume 87 FL (80-99) Mean Corpuscular Hemoglobin 27.7 PG (27.0-31.0) Mean Corpuscular Hemoglobin Concent 31.7 G/DL (32.0-36.0) L Red Cell Distribution Width 16.3 % (11.6-14.8) H Platelet Count 154 K/UL (150-450) Mean Platelet Volume 5.9 FL (6.5-10.1) L Neutrophils (%) (Auto) % (45.0-75.0) Lymphocytes (%) (Auto) % (20.0-45.0) Monocytes (%) (Auto) % (1.0-10.0) Eosinophils (%) (Auto) % (0.0-3.0) Basophils (%) (Auto) % (0.0-2.0) Differential Total Cells Counted 100 Neutrophils % (Manual) 53 % (45-75) Lymphocytes % (Manual) 18 % (20-45) L Monocytes % (Manual) 27 % (1-10) H Eosinophils % (Manual) 2 % (0-3) Basophils % (Manual) 0 % (0-2) Band Neutrophils 0 % (0-8) Platelet Estimate Adequate Platelet Morphology Normal Hypochromasia 1+ Anisocytosis 1+ Sodium Level 140 MMOL/L (136-145) Potassium Level 3.7 MMOL/L (3.5-5.1) Chloride Level 107 MMOL/L (98-107) Carbon Dioxide Level 29 MMOL/L (21-32) Anion Gap 4 mmol/L (5-15) L Blood Urea Nitrogen 6 mg/dL (7-18) L Creatinine 0.8 MG/DL (0.55-1.30) Estimat Glomerular Filtration Rate > 60 mL/min (>60) Glucose Level 99 MG/DL (74-106) Calcium Level 8.2 MG/DL (8.5-10.1) L Lipase 384 U/L (73-393) Intake and Output 08/02/20 08/03/20 19:00 07:00 Intake Total 1200 ml 4000 ml Balance 1200 ml 4000 ml Intake Oral 500 ml 4000 ml IV Total 700 ml # Voids 1 8 # Bowel Movements 8 Objective Objective General: No acute distress, awake and alert HEENT: NCAT, sclera anicteric, PERRL, EOMI. Neck: Supple, no significant jugular venous distention, Lungs: Good inspiratory effort, clear to auscultation bilaterally, no Wheeze or Rales. Heart: Regular rate and rhythm, normal S1/S2, no murmurs/gallops Abdomen: soft, less Epigastric tender, nondistended. Normoactive bowel sounds. / Rectal: Refused and deferred. Extremities: No Cyanosis , clubbing or edema. Neuro: A&O x 3, Able to move all extremities Skin: warm, no rashes or lesions Psych: Normal mood and affect Assessment/Plan Assessment/Plan Assessment/Plan Assessment/Plan Acute pancreatitis History of colon cancer status post resection. Liver masses/lesion possible metastatic disease. Bradycardia leukocytosis Plan: Tolerated Regular diet gastroenterology = Dr Alston. Colonoscopy scheduled for Monday08/03/20 cancelled Monitor laboratory. DVT prophylaxis heparin subcu. CODE STATUS is full code. consider PET/CT as outpatient. Duke Salcedo MD Aug 03, 2020 18:55
--- NOTE | 2020-08-03 19:18 | NUR ---
NURSE HAND-OFF REPORT: Important Events on Shift: Transfer from [facility]; seen by Dr. Arevalo to evaluate for bradycardia; Sinus david on tele monitor; given Zofran IV for nausea; pending colonoscopy once cardiac clearance obtained Patient Status: Stable Diet: Cardiac Pending Orders: N Pending Results/Labs: N Pending MD notification:N Latest Vital Signs: Temperature 98.1 , Pulse 62 , B/P 162 /52 , Respiratory Rate 20 , O2 SAT 97 , Room Air, O2 Flow Rate . Vital Sign Comment: EKG Rhythm: Sinus Rhythm Rhythm change?: N MD Notified?: - MD Response: Latest Carreon Fall Score: 35 Fall Risk: Medium Risk Safety Measures: Call light Within Reach, Bed Alarm Zone 1, Side Rails Side Rails x2, Bed position Low and Locked. Fall Precautions: Yellow Socks Door Sign Patient Fall Education Report given to Víctor WADE.
--- NOTE | 2020-08-03 19:47 | NUR ---
NURSE NOTES: Pt. received from MAURO Marin. Pt. AAOx4, on room air, no indications of respiratory distress, no complaints of pain. IV noted left upper arm 22g saline locked, IV right upper arm 22g with fluids running. Bed low and locked side rails x3 up, and call light in reach.
[2020-08-03 20:00] VITALS: BP 140/77
[2020-08-04] VITALS: BP 138/61
[2020-08-04] MEDS: D5 1/2NS w/KCl 20mEq 1,000 ML IV SCH ×2 (03:35→19:59)
[2020-08-04 04:00] VITALS: BP 131/69
[2020-08-04] MEDS: Heparin 5000 units/ml inj SUBQ SCH ×3 (05:06→19:49)
--- NOTE | 2020-08-04 06:42 | General Progress Note ---
Subjective ROS Limited/Unobtainable: Yes Allergies: Coded Allergies: No Known Allergies (Unverified , 07/29/20) Objective Last 24 Hour Vital Signs Date Time Temp Pulse Resp B/P (MAP) Pulse Ox O2 Delivery O2 Flow Rate FiO2 08/04/20 04:00 47 08/04/20 04:00 98.4 47 20 131/69 (89) 98 08/04/20 00:00 53 08/04/20 00:00 97.7 53 20 138/61 (86) 98 08/03/20 20:20 Room Air 08/03/20 20:00 98.4 73 21 140/77 (98) 99 08/03/20 20:00 73 08/03/20 17:08 162/52 08/03/20 16:00 98.1 48 20 162/52 (88) 97 08/03/20 16:00 62 08/03/20 12:00 98.0 41 22 158/64 (95) 96 08/03/20 09:00 Room Air 08/03/20 08:00 97.7 52 20 141/61 (87) 97 Intake and Output 08/03/20 08/04/20 19:00 07:00 Intake Total 520 ml 1100 ml Balance 520 ml 1100 ml Intake Oral 120 ml IV Total 400 ml 1100 ml # Voids 4 # Bowel Movements 3 Laboratory Tests 08/03/20 09:25: White Blood Count 1.9*L, Red Blood Count 3.58L, Hemoglobin 9.9L, Hematocrit 31.3L, Mean Corpuscular Volume 87, Mean Corpuscular Hemoglobin 27.7, Mean Corpuscular Hemoglobin Concent 31.7L, Red Cell Distribution Width 16.3H, Platelet Count 154, Mean Platelet Volume 5.9L, Neutrophils (%) (Auto) , Lymphocytes (%) (Auto) , Monocytes (%) (Auto) , Eosinophils (%) (Auto) , Basophils (%) (Auto) , Differential Total Cells Counted 100, Neutrophils % (Manual) 53, Lymphocytes % (Manual) 18L, Monocytes % (Manual) 27H, Eosinophils % (Manual) 2, Basophils % (Manual) 0, Band Neutrophils 0, Platelet Estimate Adequate, Platelet Morphology Normal, Hypochromasia 1+, Anisocytosis 1+, Sodium Level 140, Potassium Level 3.7, Chloride Level 107, Carbon Dioxide Level 29, Anion Gap 4L, Blood Urea Nitrogen 6L, Creatinine 0.8, Estimat Glomerular Filtration Rate > 60, Glucose Level 99, Calcium Level 8.2L, Lipase 384 Height (Feet): 5 Height (Inches): 7.00 Weight (Pounds): 188 General Appearance: no apparent distress EENT: normal ENT inspection Neck: supple Cardiovascular: bradycardia Respiratory/Chest: decreased breath sounds Abdomen: normal bowel sounds, non tender, soft Extremities: non-tender Assessment/Plan Assessment/Plan: pancreatitis h/o colon CA liver lesions ? mets fu tumor markers pain control colonoscopy t was canceled given patient is now neutropenic and HR was in 30 S cardiology input appreciated>> now on hydralazine fu hem for neutropenia plan colonoscopy when more stable Abimael Alston MD Aug 04, 2020 06:42
--- NOTE | 2020-08-04 07:06 | NUR ---
NURSE HAND-OFF REPORT: Important Events on Shift:[EKG performed showing sinus david, pt. stable overnight] Patient Status: stable Diet: cardiac Pending Orders: na Pending Results/Labs:na Pending MD notification:na Latest Vital Signs: Temperature 98.4 , Pulse 47 , B/P 131 /69 , Respiratory Rate 20 , O2 SAT 98 , Room Air, O2 Flow Rate . Vital Sign Comment: stable EKG Rhythm: Sinus Bradycardia Rhythm change?: N MD Notified?: N - MD Response: Latest Carreon Fall Score: 35 Fall Risk: Medium Risk Safety Measures: Call light Within Reach, Bed Alarm Zone 1, Side Rails Side Rails x2, Bed position Low and Locked. Fall Precautions: Patient Fall Education Report given to . Addendum: 08/04/20 at 0725 by Víctor Lyons RN Hand off given to MAURO Magaña.
[2020-08-04 07:25] LABS: HEMATOCRIT 30.6 % (42.0-52.0); HEMOGLOBIN 9.9 G/DL (14.2-18.0); MEAN CORPUSCULAR VOLUME 89 FL (80-99); PLATELET COUNT 145 K/UL (150-450); RED BLOOD COUNT 3.46 M/UL (4.70-6.10); RED CELL DISTRIBUTION WIDTH 16.2 % (11.6-14.8); WHITE BLOOD COUNT 2.7 K/UL (4.8-10.8)
--- NOTE | 2020-08-04 07:25 | NUR ---
NURSE NOTES: Received patient in bed. Awake, A/O x4. On room air, respirations unlabored. Patient denies pain. IV in the Right upper arm, infusing IVF as ordered. Bed low and locked, side rails up x2, call light within reach with return demonstration.
[2020-08-04 08:00] VITALS: BP 113/62
[2020-08-04 08:04] LABS: ALANINE AMINOTRANSFERASE 23 U/L (12-78); ALBUMIN 2.1 G/DL (3.4-5.0); ALBUMIN/GLOBULIN RATIO 0.6 (1.0-2.7); ALKALINE PHOSPHATASE 201 U/L (46-116); AMYLASE 113 U/L (25-115); ANION GAP 6 mmol/L (5-15); ASPARTATE AMINO TRANSFERASE 38 U/L (15-37); BILIRUBIN,TOTAL 0.4 MG/DL (0.2-1.0); BLOOD UREA NITROGEN 7 mg/dL (7-18); CALCIUM 8.5 MG/DL (8.5-10.1); CARBON DIOXIDE 27 MMOL/L (21-32); CHLORIDE 108 MMOL/L (98-107); CREATININE 0.8 MG/DL (0.55-1.30); POTASSIUM 4.2 MMOL/L (3.5-5.1); SODIUM 141 MMOL/L (136-145)
[2020-08-04] MEDS: HydrALAZINE 25mg tab ORAL SCH ×2 (08:51→17:24)
--- NOTE | 2020-08-04 09:23 | Cardiac Electrophysiology PN ---
Assessment/Plan Assessment/Plan 1. Profound bradycardia with the heart rate in the 30s. The patient is off of any AV julius blocking agents and the patient received atropine. HR better on hydralazine 25 bid. Echo pending. Being ruled out for Covid 2. Hypertension. On hydralazine 25 mg b.i.d. 3. Acute pancreatitis with high lipase. Follow up with Dr. Alston. 4. History of colon cancer with now liver lesions, questionable metastasis. Follow up tumor markers. Colonoscopy was rescheduled as the patient's heart rate was in the 30s. The patient was also evaluated by Dr. Kenn Dalton who, based on age alone, felt that he is not a candidate to undergo creation of a Calix continent ileostomy. 5. Neutropenia, white count of 1.9, in reverse isolation. Subjective Subjective In SR being ruled out for Covid. In neutropenic precaution. Echo pending. Still david in 50s. Objective Last 24 Hour Vital Signs Date Time Temp Pulse Resp B/P (MAP) Pulse Ox O2 Delivery O2 Flow Rate FiO2 08/04/20 09:00 Room Air 08/04/20 08:51 113/62 08/04/20 08:00 49 08/04/20 08:00 96.8 48 20 113/62 (79) 94 08/04/20 04:00 47 08/04/20 04:00 98.4 47 20 131/69 (89) 98 08/04/20 00:00 53 08/04/20 00:00 97.7 53 20 138/61 (86) 98 08/03/20 20:20 Room Air 08/03/20 20:00 98.4 73 21 140/77 (98) 99 08/03/20 20:00 73 08/03/20 17:08 162/52 08/03/20 16:00 98.1 48 20 162/52 (88) 97 08/03/20 16:00 62 08/03/20 12:00 98.0 41 22 158/64 (95) 96 Intake and Output 08/03/20 08/04/20 19:00 07:00 Intake Total 520 ml 1400 ml Balance 520 ml 1400 ml Intake Oral 120 ml 300 ml IV Total 400 ml 1100 ml # Voids 4 3 # Bowel Movements 3 Laboratory Tests Test 08/03/20 09:25 08/04/20 06:42 White Blood Count 1.9 K/UL (4.8-10.8) *L 2.7 K/UL (4.8-10.8) L Red Blood Count 3.58 M/UL (4.70-6.10) L 3.46 M/UL (4.70-6.10) L Hemoglobin 9.9 G/DL (14.2-18.0) L 9.9 G/DL (14.2-18.0) L Hematocrit 31.3 % (42.0-52.0) L 30.6 % (42.0-52.0) L Mean Corpuscular Volume 87 FL (80-99) 89 FL (80-99) Mean Corpuscular Hemoglobin 27.7 PG (27.0-31.0) 28.7 PG (27.0-31.0) Mean Corpuscular Hemoglobin Concent 31.7 G/DL (32.0-36.0) L 32.4 G/DL (32.0-36.0) Red Cell Distribution Width 16.3 % (11.6-14.8) H 16.2 % (11.6-14.8) H Platelet Count 154 K/UL (150-450) 145 K/UL (150-450) L Mean Platelet Volume 5.9 FL (6.5-10.1) L 6.1 FL (6.5-10.1) L Neutrophils (%) (Auto) % (45.0-75.0) % (45.0-75.0) Lymphocytes (%) (Auto) % (20.0-45.0) % (20.0-45.0) Monocytes (%) (Auto) % (1.0-10.0) % (1.0-10.0) Eosinophils (%) (Auto) % (0.0-3.0) % (0.0-3.0) Basophils (%) (Auto) % (0.0-2.0) % (0.0-2.0) Differential Total Cells Counted 100 100 Neutrophils % (Manual) 53 % (45-75) 58 % (45-75) Lymphocytes % (Manual) 18 % (20-45) L 21 % (20-45) Monocytes % (Manual) 27 % (1-10) H 16 % (1-10) H Eosinophils % (Manual) 2 % (0-3) 5 % (0-3) H Basophils % (Manual) 0 % (0-2) 0 % (0-2) Band Neutrophils 0 % (0-8) 0 % (0-8) Platelet Estimate Adequate Decreased L Platelet Morphology Normal Normal Hypochromasia 1+ 1+ Anisocytosis 1+ 1+ Sodium Level 140 MMOL/L (136-145) 141 MMOL/L (136-145) Potassium Level 3.7 MMOL/L (3.5-5.1) 4.2 MMOL/L (3.5-5.1) Chloride Level 107 MMOL/L (98-107) 108 MMOL/L (98-107) H Carbon Dioxide Level 29 MMOL/L (21-32) 27 MMOL/L (21-32) Anion Gap 4 mmol/L (5-15) L 6 mmol/L (5-15) Blood Urea Nitrogen 6 mg/dL (7-18) L 7 mg/dL (7-18) Creatinine 0.8 MG/DL (0.55-1.30) 0.8 MG/DL (0.55-1.30) Estimat Glomerular Filtration Rate > 60 mL/min (>60) > 60 mL/min (>60) Glucose Level 99 MG/DL (74-106) 105 MG/DL (74-106) Calcium Level 8.2 MG/DL (8.5-10.1) L 8.5 MG/DL (8.5-10.1) Lipase 384 U/L (73-393) 714 U/L (73-393) H Total Bilirubin 0.4 MG/DL (0.2-1.0) Aspartate Amino Transf (AST/SGOT) 38 U/L (15-37) H Alanine Aminotransferase (ALT/SGPT) 23 U/L (12-78) Alkaline Phosphatase 201 U/L (46-116) H Total Protein 5.5 G/DL (6.4-8.2) L Albumin 2.1 G/DL (3.4-5.0) L Globulin 3.4 g/dL Albumin/Globulin Ratio 0.6 (1.0-2.7) L Amylase Level 113 U/L (25-115) Thyroid Stimulating Hormone (TSH) 0.613 uiU/mL (0.358-3.740) Free Thyroxine 1.08 NG/DL (0.76-1.46) Objective HEAD AND NECK: No JVD. LUNGS: Clear. CARDIOVASCULAR: Bradycardic S1 and S2 with no gallop. ABDOMEN: Soft and nontender. EXTREMITIES: No pitting edema. Frankie Arevalo MD Aug 04, 2020 09:23
--- NOTE | 2020-08-04 11:15 | NUR ---
NURSE NOTES: COVID swab collected and sent down to lab.
[2020-08-04 12:00] VITALS: BP 141/75
--- NOTE | 2020-08-04 14:22 | Surgery Progress Note ---
Surgery Progress Note Subjective Additional Comments scope cancelled cardiology input appreciated no n/v no pain diarrhea Objective Last 24 Hour Vital Signs Date Time Temp Pulse Resp B/P (MAP) Pulse Ox O2 Delivery O2 Flow Rate FiO2 08/04/20 12:00 48 08/04/20 12:00 97.9 66 20 141/75 (97) 93 08/04/20 09:00 Room Air 08/04/20 08:51 113/62 08/04/20 08:00 49 08/04/20 08:00 96.8 48 20 113/62 (79) 94 08/04/20 04:00 47 08/04/20 04:00 98.4 47 20 131/69 (89) 98 08/04/20 00:00 53 08/04/20 00:00 97.7 53 20 138/61 (86) 98 08/03/20 20:20 Room Air 08/03/20 20:00 98.4 73 21 140/77 (98) 99 08/03/20 20:00 73 08/03/20 17:08 162/52 08/03/20 16:00 98.1 48 20 162/52 (88) 97 08/03/20 16:00 62 I&O Intake and Output 08/03/20 08/04/20 19:00 07:00 Intake Total 520 ml 1500 ml Balance 520 ml 1500 ml Intake Oral 120 ml 300 ml IV Total 400 ml 1200 ml # Voids 4 3 # Bowel Movements 3 Cardiovascular: RSR Respiratory: decreased breath sounds Abdomen: soft, flat, non-tender, present bowel sounds, non-distended Extremities: no edema, no tenderness, no cyanosis Laboratory Tests Test 08/04/20 06:42 White Blood Count 2.7 K/UL (4.8-10.8) L Red Blood Count 3.46 M/UL (4.70-6.10) L Hemoglobin 9.9 G/DL (14.2-18.0) L Hematocrit 30.6 % (42.0-52.0) L Mean Corpuscular Volume 89 FL (80-99) Mean Corpuscular Hemoglobin 28.7 PG (27.0-31.0) Mean Corpuscular Hemoglobin Concent 32.4 G/DL (32.0-36.0) Red Cell Distribution Width 16.2 % (11.6-14.8) H Platelet Count 145 K/UL (150-450) L Mean Platelet Volume 6.1 FL (6.5-10.1) L Neutrophils (%) (Auto) % (45.0-75.0) Lymphocytes (%) (Auto) % (20.0-45.0) Monocytes (%) (Auto) % (1.0-10.0) Eosinophils (%) (Auto) % (0.0-3.0) Basophils (%) (Auto) % (0.0-2.0) Differential Total Cells Counted 100 Neutrophils % (Manual) 58 % (45-75) Lymphocytes % (Manual) 21 % (20-45) Monocytes % (Manual) 16 % (1-10) H Eosinophils % (Manual) 5 % (0-3) H Basophils % (Manual) 0 % (0-2) Band Neutrophils 0 % (0-8) Platelet Estimate Decreased L Platelet Morphology Normal Hypochromasia 1+ Anisocytosis 1+ Sodium Level 141 MMOL/L (136-145) Potassium Level 4.2 MMOL/L (3.5-5.1) Chloride Level 108 MMOL/L (98-107) H Carbon Dioxide Level 27 MMOL/L (21-32) Anion Gap 6 mmol/L (5-15) Blood Urea Nitrogen 7 mg/dL (7-18) Creatinine 0.8 MG/DL (0.55-1.30) Estimat Glomerular Filtration Rate > 60 mL/min (>60) Glucose Level 105 MG/DL (74-106) Calcium Level 8.5 MG/DL (8.5-10.1) Total Bilirubin 0.4 MG/DL (0.2-1.0) Aspartate Amino Transf (AST/SGOT) 38 U/L (15-37) H Alanine Aminotransferase (ALT/SGPT) 23 U/L (12-78) Alkaline Phosphatase 201 U/L (46-116) H Total Protein 5.5 G/DL (6.4-8.2) L Albumin 2.1 G/DL (3.4-5.0) L Globulin 3.4 g/dL Albumin/Globulin Ratio 0.6 (1.0-2.7) L Amylase Level 113 U/L (25-115) Lipase 714 U/L (73-393) H Thyroid Stimulating Hormone (TSH) 0.613 uiU/mL (0.358-3.740) Free Thyroxine 1.08 NG/DL (0.76-1.46) Plan Problems: (1) Acute pancreatitis Assessment & Plan: 75-year-old male with pancreatitis. No EtOH history. Seems to be having intermittent episodes of pancreatitis as states that the symptoms not as first time and is not a pancreatitis in the past. States that he was told potentially in the past he may have pancreatic cancer but is unaware. Does not have any of his medical records with him and is a poor historian in the details. Elevated lipase trending down with IV fluids. Pain improving. Tolerating diet. No acute surgical intervention planned at this time. Conservative management of medical acute pancreatitis. lipase improving pain resolved tolerating diet There are several lesions identified in the liver. There is only one lesion in the caudate lobe which demonstrates typical appearance of a simple cyst. It is circumscribed with smooth margin and fluid intensity on all sequences without enhancement. The other lesions identified in segments 6 and 7 of the right lobe of the liver are not a simple cyst by MR criteria. No fluid intensity noted on T2 images. They show diminished enhancement compared to adjacent liver parenchyma on postcontrast images. These vary in size with a few which are barely perceptible 2 largest measuring 1.8 cm in segment 6. With the patient's history, these are suspicious for metastatic disease. Slight scalloping of the lateral margin of the right lobe of the liver noted and there is suggestion of slight asymmetric enhancement of the underlying parenchyma noted. Spleen is homogeneous. Tiny gallstone noted layering in the gallbladder. There is no intrahepatic or extrahepatic ductal dilatation. There is slight prominence of the pancreatic duct near the neck region but no discrete parenchymal pancreatic lesion identified. Adrenals are normal. There are multiple bilateral renal cysts. There is no signs of bowel distention. No ascites demonstrated. There is no adenopathy noted. Visualized portions of the lumbar spine appear unremarkable. IMPRESSION: MULTIPLE HEPATIC LESIONS NOTED, ONLY ONE OF WHICH IN THE CAUDATE LOBE APPEARS TO BE A SIMPLE CYST. THE OTHER LESIONS DO NOT MEET MR CRITERIA FOR SIMPLE CYST AND METASTATIC DISEASE SHOULD BE CONSIDERED GIVEN THE PATIENT'S CLINICAL HISTORY. CONSIDER PET/CT FOR CONFIRMATION IF CLINICALLY INDICATED. TINY GALLSTONE. SLIGHT PROMINENCE OF PANCREATIC DUCT BUT NO DISCRETE PANCREATIC LESION SEEN PRESENTLY. RENAL CYSTS. (2) Abdominal pain Assessment & Plan: Patient complaining of abdominal pain likely related to pancreatitis also complaining of pain with multiple episodes of diarrhea and some anal pain. Patient with history of colon cancer status post subtotal colectomy with what seems to be a J-pouch having persistent diarrhea multiple episodes a day followed by potential incontinence as well described by patient. Afebrile hemodynamic stable otherwise okay. Abdominal exam fairly benign. Prior incisions noted well-healed. Patient is interested in having a evaluation for a continent ileostomy. Dr. Kenn Dalton will evaluate patient as patient has researched him prior and has come to this facility to be seen by him as well. CT scan reviewed. Patient has multiple liver lesions that are concerning for potential metastatic disease. MRI ordered. Will need further work-up and management which can be done in outpatient setting by patient's PCP and oncologist once patient's pancreatitis is improved. Thank you will follow with recommendations Mild dependent atelectasis noted in both lung bases. There are several low densities identified in the caudate and right lobe of the liver. A few are circumscribed and low density resembling cysts but there are several in segment 6 and segment 7 of the liver which are not cystic. Patient does have known history of colon cancer and metastatic hepatic lesions is suspected. There is some low-density scalloping of the lateral margin right lobe of liver on images 22-25 which may reflect serosal disease as well. The spleen is homogeneous. Gallbladder is without sludge or stone and there is no wall thickening. Pancreas is mostly homogeneous. There is a focus of coarse calcification at the pancreatic head. Adrenals are normal in morphology. Multiple bilateral exophytic cysts of the kidneys noted. Postoperative changes noted near the GE junction. Small bowel loops are nondistended. Patient is status post colectomy. Anastomotic sutures noted in the region of the rectum. There is some soft tissue thickening in the presacral space most likely postoperative changes but focal recurrent tumor cannot be excluded. The appendix is not visualized. There is no free fluid or free air. No pathologic adenopathy demonstrated. Urinary bladder appears unremarkable. There is no suspicious superficial soft tissue or osseous abnormality. IMPRESSION: MULTIPLE LOW-DENSITY LESIONS IN THE LIVER, SOME OF WHICH ARE NOT SIMPLE CYSTS. WITH HISTORY OF COLON CANCER, METASTATIC HEPATIC LESIONS SUSPECTED. COARSE CALCIFICATION AT THE PANCREATIC HEAD. QUESTION HISTORY OF OLD PANCREATITIS. RENAL CYSTS. POSTOPERATIVE CHANGES NEAR THE GE JUNCTION. ALSO APPARENT COLECTOMY. SOME SOFT TISSUE THICKENING IN THE PRESACRAL SPACE MOST LIKELY POSTOPERATIVE CHANGES BUT FOCAL RECURRENT TUMOR CANNOT BE EXCLUDED. (3) Nausea vomiting and diarrhea Assessment & Plan: d/c planning outpatient f/u for oncology work up at [facility] with his oncologist Alfredo Phillip Aug 04, 2020 14:22
[2020-08-04 16:00] VITALS: BP 129/63
--- NOTE | 2020-08-04 17:38 | Internal Med Progress Note ---
Subjective Date of Service: Aug 04, 2020 Physician Name Duke Salcedo Attending Physician Antoine Kay MD Current Medications Medications (Trade) Dose Ordered Sig/Stacy Route PRN Reason Start Time Stop Time Status Last Admin Dose Admin Acetaminophen (Tylenol) 650 mg Q6H PRN ORAL Temp >100.5 07/30/20 00:15 08/29/20 00:14 Dextrose/ Electrolytes 1,000 ml @ 100 mls/hr Q10H IV 07/30/20 00:15 08/29/20 00:14 08/04/20 03:35 Heparin Sodium (Porcine) (Heparin 5000 units/ml) 5,000 units EVERY 8 HOURS SUBQ 07/30/20 06:00 09/13/20 05:59 08/04/20 14:11 Hydralazine HCl (Apresoline) 25 mg BID ORAL 08/03/20 18:00 11/01/20 17:59 08/04/20 17:24 Loperamide HCl (Imodium) 2 mg Q4H PRN ORAL Diarrhea 07/30/20 16:00 08/29/20 15:59 07/31/20 08:15 Morphine Sulfate (Morphine Sulfate) 2 mg Q4H PRN IVP FOR MODERATE PAIN 4 TO 6 07/30/20 00:15 08/06/20 00:14 Morphine Sulfate (Morphine Sulfate) 4 mg Q4H PRN IVP Severe Pain (Pain Scale 7-10) 07/30/20 00:15 08/06/20 00:14 08/02/20 18:43 Ondansetron HCl (Zofran) 4 mg Q4H PRN IVP Nausea & Vomiting 07/30/20 00:15 08/29/20 00:14 08/03/20 15:26 Zolpidem Tartrate (Ambien) 5 mg HSPRN PRN ORAL Insomnia 07/30/20 21:15 08/06/20 21:14 08/02/20 01:02 Allergies: Coded Allergies: No Known Allergies (Unverified , 07/29/20) ROS Limited/Unobtainable: No Constitutional: Reports: no symptoms HEENT: Reports: no symptoms Cardiovascular: Reports: no symptoms Respiratory: Reports: no symptoms Gastrointestinal/Abdominal: Reports: abdominal pain Genitourinary: Reports: no symptoms Neurologic/Psychiatric: Reports: no symptoms Subjective 75 YO M admitted with abdominal pain. Now acute pancreatitis and liver masses. Cover for Int Margarito-DR Kay. Colonoscopy for 08/03 cancelled due to neutropenia and bradycardia Objective Last Vital Signs Date Time Temp Pulse Resp B/P (MAP) Pulse Ox O2 Delivery O2 Flow Rate FiO2 08/04/20 17:24 129/63 08/04/20 16:00 96.5 56 20 98 08/04/20 09:00 Room Air Laboratory Tests Test 08/04/20 06:42 White Blood Count 2.7 K/UL (4.8-10.8) L Red Blood Count 3.46 M/UL (4.70-6.10) L Hemoglobin 9.9 G/DL (14.2-18.0) L Hematocrit 30.6 % (42.0-52.0) L Mean Corpuscular Volume 89 FL (80-99) Mean Corpuscular Hemoglobin 28.7 PG (27.0-31.0) Mean Corpuscular Hemoglobin Concent 32.4 G/DL (32.0-36.0) Red Cell Distribution Width 16.2 % (11.6-14.8) H Platelet Count 145 K/UL (150-450) L Mean Platelet Volume 6.1 FL (6.5-10.1) L Neutrophils (%) (Auto) % (45.0-75.0) Lymphocytes (%) (Auto) % (20.0-45.0) Monocytes (%) (Auto) % (1.0-10.0) Eosinophils (%) (Auto) % (0.0-3.0) Basophils (%) (Auto) % (0.0-2.0) Differential Total Cells Counted 100 Neutrophils % (Manual) 58 % (45-75) Lymphocytes % (Manual) 21 % (20-45) Monocytes % (Manual) 16 % (1-10) H Eosinophils % (Manual) 5 % (0-3) H Basophils % (Manual) 0 % (0-2) Band Neutrophils 0 % (0-8) Platelet Estimate Decreased L Platelet Morphology Normal Hypochromasia 1+ Anisocytosis 1+ Sodium Level 141 MMOL/L (136-145) Potassium Level 4.2 MMOL/L (3.5-5.1) Chloride Level 108 MMOL/L (98-107) H Carbon Dioxide Level 27 MMOL/L (21-32) Anion Gap 6 mmol/L (5-15) Blood Urea Nitrogen 7 mg/dL (7-18) Creatinine 0.8 MG/DL (0.55-1.30) Estimat Glomerular Filtration Rate > 60 mL/min (>60) Glucose Level 105 MG/DL (74-106) Calcium Level 8.5 MG/DL (8.5-10.1) Total Bilirubin 0.4 MG/DL (0.2-1.0) Aspartate Amino Transf (AST/SGOT) 38 U/L (15-37) H Alanine Aminotransferase (ALT/SGPT) 23 U/L (12-78) Alkaline Phosphatase 201 U/L (46-116) H Total Protein 5.5 G/DL (6.4-8.2) L Albumin 2.1 G/DL (3.4-5.0) L Globulin 3.4 g/dL Albumin/Globulin Ratio 0.6 (1.0-2.7) L Amylase Level 113 U/L (25-115) Lipase 714 U/L (73-393) H Thyroid Stimulating Hormone (TSH) 0.613 uiU/mL (0.358-3.740) Free Thyroxine 1.08 NG/DL (0.76-1.46) Intake and Output 08/03/20 08/04/20 19:00 07:00 Intake Total 520 ml 1500 ml Balance 520 ml 1500 ml Intake Oral 120 ml 300 ml IV Total 400 ml 1200 ml # Voids 4 3 # Bowel Movements 3 Objective Objective General: No acute distress, awake and alert HEENT: NCAT, sclera anicteric, PERRL, EOMI. Neck: Supple, no significant jugular venous distention, Lungs: Good inspiratory effort, clear to auscultation bilaterally, no Wheeze or Rales. Heart: Regular rate and rhythm, normal S1/S2, no murmurs/gallops Abdomen: soft, less Epigastric tender, nondistended. Normoactive bowel sounds. / Rectal: Refused and deferred. Extremities: No Cyanosis , clubbing or edema. Neuro: A&O x 3, Able to move all extremities Skin: warm, no rashes or lesions Psych: Normal mood and affect Assessment/Plan Assessment/Plan Assessment/Plan Assessment/Plan Acute pancreatitis History of colon cancer status post resection. Liver masses/lesion possible metastatic disease. Bradycardia leukocytosis Plan: Tolerated Regular diet gastroenterology = Dr Alston. Colonoscopy scheduled for Monday08/03/20 cancelled Monitor laboratory. DVT prophylaxis heparin subcu. CODE STATUS is full code. consider PET/CT as outpatient. Await heme/onc consult=Duke Mills MD Aug 04, 2020 17:38
--- NOTE | 2020-08-04 18:47 | NUR ---
NURSE NOTES: Patient c/o of loose watery stool for several days. Stool collected for c. diff and sent down to lab.
--- NOTE | 2020-08-04 19:21 | NUR ---
NURSE HAND-OFF REPORT: Important Events on Shift:[2d echo, watery diarrhea] Patient Status: [FULL CODE] Diet: [cardiac] Pending Orders: [] Pending Results/Labs:[] Pending MD notification:[] Latest Vital Signs: Temperature 96.5 , Pulse 63 , B/P 129 /63 , Respiratory Rate 20 , O2 SAT 98 , Room Air, O2 Flow Rate . Vital Sign Comment: [] EKG Rhythm: Sinus Rhythm Rhythm change?: N MD Notified?: N - MD Response: Latest Carreon Fall Score: 35 Fall Risk: Medium Risk Safety Measures: Call light Within Reach, Bed Alarm Zone 1, Side Rails Side Rails x2, Bed position Low and Locked. Fall Precautions: Patient Fall Education Report given to [Jeremiah Lock RN].
--- NOTE | 2020-08-04 19:25 | NUR ---
NURSE NOTES: Patient received from MAURO Magaña. Patient is awake, alert and oriented x 4. Patient is complaining of stomach pain and wants pain medication, will tend his needs. Educated patient regarding fall precautions. Patient is on room air with no signs of acute respiratory distress noted. Patient is noted to have diarrhea and is able to use the restroom. Patient has a 22 gauge on his left upper arm, patent and flushed. Patient has a right 22 gauge on his right upper arm patent and flushed. Bed is in the lowest position, call light within reach. Will continue to monitor.
[2020-08-04 20:00] VITALS: BP 154/72
[2020-08-05] VITALS: BP 131/51
--- NOTE | 2020-08-05 02:23 | Cardiology Report ---
APPROVED REPORT EXAM: Two-dimensional and M-mode echocardiogram with Doppler and color Doppler. INDICATION Coronary artery disease M-Mode DIMENSIONS IVSd1.2 (0.7-1.1cm)Left Atrium (MM)4.6 (1.6-4.0cm) LVDd4.7 (3.5-5.6cm)Aortic Root3.4 (2.0-3.7cm) PWd1.1 (0.7-1.1cm)Aortic Cusp Exc.1.9 (1.5-2.0cm) IVSs1.9 cmEPSS0.5 (>1.0cm) LVDs3.2 (2.5-4.0cm) PWs1.7 cm <Conclusion> Normal left ventricular chamber size, systolic function and wall motion. Left ventricular ejection fraction estimated to be 55%. No evidence of left ventricular hypertrophy. No evidence of pericardial effusion. Mild left atrial enlargement. Right cardiac chamber sizes are within normal limits. Focal aortic valve sclerosis with adequate cusp excursion. Thickened mitral valve leaflets with normal excursion. Mitral annulus and aortic root calcification. Pulmonic valve not well visualized. Normal tricuspid valve structure. IVC not adequately visualized A color flow and spectral Doppler study was performed and revealed: Mild aortic regurgitation. Mild mitral regurgitation. Mitral diastolic velocities suggest reduced left ventricular relaxation c/w mild diastolic dysfunction (Grade I). Mild tricuspid regurgitation 26 + RAP mmhg Mild to moderate pulmonic regurgitation present.
[2020-08-05 04:00] VITALS: BP 121/52
[2020-08-05] MEDS: Heparin 5000 units/ml inj SUBQ SCH ×3 (06:00→20:33)
[2020-08-05] MEDS: D5 1/2NS w/KCl 20mEq 1,000 ML IV SCH ×2 (06:13→15:14)
--- NOTE | 2020-08-05 06:41 | Consultation ---
History of Present Illness General Chief Complaint: Diarrhea Present Illness Allergies: Coded Allergies: No Known Allergies (Unverified , 07/29/20) Medication History Scheduled Aspirin (Aspirin EC), 81 MG ORAL DAILY, (Reported) Clotrimazole* (Lotrimin*), 1 APPLIC TOPIC TWICE A DAY, (Reported) Furosemide* (Lasix*), 40 MG ORAL DAILY, (Reported) Lidocaine (Anecream), 5 GM TP TID, (Reported) Nystatin/Triamcin (Nystatin-Triamcinolone Cream), 15 GM TP BID, (Reported) Scheduled PRN Cholestyramine (Cholestyramine Resin), 5 GM MC QID PRN for unk, (Reported) Diphenoxylate Hcl/Atropine (Lomotil Tablet), 2 TAB ORAL QID PRN for Diarrhea, (Reported) Hydrocortisone/Pramoxine (Hydrocortisone/Pramoxine 2.5%-1% Cream*), 57 GM TP TID PRN for Itching, (Reported) Hydrocortisone/Pramoxine (Hydrocortisone/Pramoxine 2.5%-1% Cream*), 57 GM TP TID PRN for Itching, (Reported) Ibuprofen (Motrin Ib), 200 MG PO for For Pain, (Reported) Ibuprofen* (Motrin*), 600 MG ORAL THREE TIMES A DAY PRN for For Pain, (Reported) Ondansetron Odt* (Zofran Odt*), 4 MG ORAL TID PRN for Nausea & Vomiting, (Reported) Tramadol Hcl* (Ultram*), 50 MG ORAL TID PRN for For Pain, (Reported) Zolpidem Tartrate* (Zolpidem Tartrate*), 5 MG ORAL BEDTIME PRN for Insomnia, (Reported) Patient History Healthcare decision maker Resuscitation status Advanced Directive on File Physical Exam Last 24 Hour Vital Signs Date Time Temp Pulse Resp B/P (MAP) Pulse Ox O2 Delivery O2 Flow Rate FiO2 08/05/20 04:00 97.9 61 21 121/52 (75) 97 08/05/20 04:00 52 08/05/20 00:00 53 08/05/20 00:00 97.9 60 21 131/51 (77) 98 08/04/20 21:00 Room Air 08/04/20 20:30 96.5 08/04/20 20:00 96.5 60 20 154/72 (99) 98 08/04/20 20:00 49 08/04/20 17:24 129/63 08/04/20 16:00 96.5 56 20 129/63 (85) 98 08/04/20 16:00 63 08/04/20 12:00 48 08/04/20 12:00 97.9 66 20 141/75 (97) 93 08/04/20 09:00 Room Air 08/04/20 08:51 113/62 08/04/20 08:00 49 08/04/20 08:00 96.8 48 20 113/62 (79) 94 Intake and Output 08/04/20 08/05/20 19:00 07:00 Intake Total 1340 ml 500 ml Output Total 500 ml Balance 1340 ml 0 ml Intake Oral 740 ml IV Total 600 ml Other 500 ml Other 500 ml # Voids 3 # Bowel Movements 3 Laboratory Tests Test 08/04/20 06:42 White Blood Count 2.7 K/UL (4.8-10.8) L Red Blood Count 3.46 M/UL (4.70-6.10) L Hemoglobin 9.9 G/DL (14.2-18.0) L Hematocrit 30.6 % (42.0-52.0) L Mean Corpuscular Volume 89 FL (80-99) Mean Corpuscular Hemoglobin 28.7 PG (27.0-31.0) Mean Corpuscular Hemoglobin Concent 32.4 G/DL (32.0-36.0) Red Cell Distribution Width 16.2 % (11.6-14.8) H Platelet Count 145 K/UL (150-450) L Mean Platelet Volume 6.1 FL (6.5-10.1) L Neutrophils (%) (Auto) % (45.0-75.0) Lymphocytes (%) (Auto) % (20.0-45.0) Monocytes (%) (Auto) % (1.0-10.0) Eosinophils (%) (Auto) % (0.0-3.0) Basophils (%) (Auto) % (0.0-2.0) Differential Total Cells Counted 100 Neutrophils % (Manual) 58 % (45-75) Lymphocytes % (Manual) 21 % (20-45) Monocytes % (Manual) 16 % (1-10) H Eosinophils % (Manual) 5 % (0-3) H Basophils % (Manual) 0 % (0-2) Band Neutrophils 0 % (0-8) Platelet Estimate Decreased L Platelet Morphology Normal Hypochromasia 1+ Anisocytosis 1+ Sodium Level 141 MMOL/L (136-145) Potassium Level 4.2 MMOL/L (3.5-5.1) Chloride Level 108 MMOL/L (98-107) H Carbon Dioxide Level 27 MMOL/L (21-32) Anion Gap 6 mmol/L (5-15) Blood Urea Nitrogen 7 mg/dL (7-18) Creatinine 0.8 MG/DL (0.55-1.30) Estimat Glomerular Filtration Rate > 60 mL/min (>60) Glucose Level 105 MG/DL (74-106) Calcium Level 8.5 MG/DL (8.5-10.1) Total Bilirubin 0.4 MG/DL (0.2-1.0) Aspartate Amino Transf (AST/SGOT) 38 U/L (15-37) H Alanine Aminotransferase (ALT/SGPT) 23 U/L (12-78) Alkaline Phosphatase 201 U/L (46-116) H Total Protein 5.5 G/DL (6.4-8.2) L Albumin 2.1 G/DL (3.4-5.0) L Globulin 3.4 g/dL Albumin/Globulin Ratio 0.6 (1.0-2.7) L Amylase Level 113 U/L (25-115) Lipase 714 U/L (73-393) H Thyroid Stimulating Hormone (TSH) 0.613 uiU/mL (0.358-3.740) Free Thyroxine 1.08 NG/DL (0.76-1.46) Height (Feet): 5 Height (Inches): 7.00 Weight (Pounds): 188 Medications Current Medications Medications (Trade) Dose Ordered Sig/Stacy Route PRN Reason Start Time Stop Time Status Last Admin Dose Admin Acetaminophen (Tylenol) 650 mg Q6H PRN ORAL Temp >100.5 07/30/20 00:15 08/29/20 00:14 Dextrose/ Electrolytes 1,000 ml @ 100 mls/hr Q10H IV 07/30/20 00:15 08/29/20 00:14 08/04/20 19:59 Heparin Sodium (Porcine) (Heparin 5000 units/ml) 5,000 units EVERY 8 HOURS SUBQ 07/30/20 06:00 09/13/20 05:59 08/04/20 14:11 Hydralazine HCl (Apresoline) 25 mg BID ORAL 08/03/20 18:00 11/01/20 17:59 08/04/20 17:24 Loperamide HCl (Imodium) 2 mg Q4H PRN ORAL Diarrhea 07/30/20 16:00 08/29/20 15:59 07/31/20 08:15 Morphine Sulfate (Morphine Sulfate) 2 mg Q4H PRN IVP FOR MODERATE PAIN 4 TO 6 07/30/20 00:15 08/06/20 00:14 08/04/20 20:00 Morphine Sulfate (Morphine Sulfate) 4 mg Q4H PRN IVP Severe Pain (Pain Scale 7-10) 07/30/20 00:15 08/06/20 00:14 08/02/20 18:43 Ondansetron HCl (Zofran) 4 mg Q4H PRN IVP Nausea & Vomiting 07/30/20 00:15 08/29/20 00:14 08/03/20 15:26 Zolpidem Tartrate (Ambien) 5 mg HSPRN PRN ORAL Insomnia 07/30/20 21:15 08/06/20 21:14 08/02/20 01:02 Assessment/Plan Assessment/Plan: Oncology Consultation MAXWELL KIM: Duke Salcedo RFC: Multiple liver masses HPI 75 y old male, from [facility], presents with abdominal pain, vomiting and nausea and diarrhea. He drove from [place] where he lives to have a new physician who is on staff here. Patient had colon cancer resection 5 years ago. Since that time he has had recurrent pain and diarrhea with intermi ttent bleeding. He reports the pain 8/10 at this time. The pain is left lower quadrant and constant. Diarrhea is occasionally watery. In addition was mixed with blood today. This is not unusual for the patient. He has been taking loperamide. In the past he has taken a small white pill that helps him more but has run out of these. He states he does have medicine for nausea but thinks it may be Zofran. He had similar pain was evaluated at [facility]. He had labs and CT performed. According to the discharge papers results were normal. Actual CT results were not included. He was not admitted to the hospital but discharged with the diagnosis of chronic pain. The patient denies exposure to Covid positive contacts. No fevers, chills, sore throat, chest pain, palpitations, dysuria, shortness of breath, joint pain, rashes, depression, anxiety, visual changes, dizziness, headache. The patient states that Dr. Kay recommended that he come from [place] for evaluation here. Coded Allergies: No Known Allergies (Unverified , 07/29/20) COVID-19 Screening Contact w/high risk pt: No Experienced COVID-19 symptoms?: No COVID-19 Testing performed DESKTOP SUPPORT SPECIALIST: No Patient History Past Medical History: see triage record, old chart reviewed Past Surgical History: other - colon resection Social History: Denies: smoking, alcohol use, drug use Social History Narrative Lives in [place], has an RV that he is staying in in town Reviewed Nursing Documentation: PMH: Agreed; PSxH: Agreed Nursing Documentation-PMH Hx Cancer: Yes - colon, pancreas Review of Systems All Other Systems: negative except mentioned in HPI Objective General: No acute distress, awake and alert HEENT: NCAT, sclera anicteric, PERRL, EOMI. Neck: Supple, no significant jugular venous distention, Lungs: Good inspiratory effort, clear to auscultation bilaterally, no Wheeze or Rales. Heart: Regular rate and rhythm, normal S1/S2, no murmurs/gallops Abdomen: soft, less Epigastric tender, nondistended. Normoactive bowel sounds. / Rectal: Refused and deferred. Extremities: No Cyanosis , clubbing or edema. Neuro: A&O x 3, Able to move all extremities Skin: warm, no rashes or lesions Psych: Normal mood and affect Labs: reviewed Imaging: liver masses on ct Assessment and recs # MULTIPLE HEPATIC LESIONS NOTED, ONLY ONE OF WHICH IN THE CAUDATE LOBE APPEARS TO BE A SIMPLE CYST. THE OTHER LESIONS DO NOT MEET MR CRITERIA FOR SIMPLE CYST AND METASTATIC DISEASE SHOULD BE CONSIDERED GIVEN THE PATIENT'S CLINICAL HISTORY. CONSIDER PET/CT FOR CONFIRMATION IF CLINICALLY INDICATED. --> DID have prior abdominal surgery 3 years ago with hx of cancer --> to review medical records from before once obtained --> tumor markers have been ordered --> colo v egd and biopsy v ct guided biopsy once stable --> improve underyling cards and neutropenia issues # Neutropenia likely due to metastatic malignancy --> hep and hiv ordered --> smear reviewed --> likely bone marrow origin # Nausea vomiting and diarrhea --> likely due to above # Acute pancreatitis --> ivfs, gi.surg eval # Hypokalemia --> replete withk # History of colon cancer status post resection. # Liver masses/lesion possible metastatic disease. # Bradycardia # Dvt ppx scds Appreciate consultation and dw Jakob Rutledge MD Aug 05, 2020 06:41
[2020-08-05] MEDS ORDERED: Lidocaine 1% Plain 30 ml INJ PRN (06:45)
[2020-08-05] MEDS ORDERED: Sodium Bicarbonate 4% 2.4meq/5ml vial IV PRN (06:45)
--- NOTE | 2020-08-05 07:25 | NUR ---
NURSE HAND-OFF REPORT: Important Events on Shift:[Patient complaining of stomach pain and asked for pain medication. Gave morphine and said it helped. Per Dr. Ferrer, okay to give heparin as long as platelet is above 100. Patient seen by Dr. Ferrer] Patient Status: [Stable] Diet: [Cardiac diet] Pending Orders: [] Pending Results/Labs:[] Pending MD notification:[] Latest Vital Signs: Temperature 97.9 , Pulse 61 , B/P 121 /52 , Respiratory Rate 21 , O2 SAT 97 , Room Air, O2 Flow Rate . Vital Sign Comment: [] EKG Rhythm: Sinus Bradycardia Rhythm change?: N MD Notified?: N - MD Response: Latest Carreon Fall Score: 35 Fall Risk: Medium Risk Safety Measures: Call light Within Reach, Bed Alarm Zone 1, Side Rails Side Rails x2, Bed position Low and Locked. Fall Precautions: Patient Fall Education Report given to [MAURO Anne].
--- NOTE | 2020-08-05 07:30 | NUR ---
NURSE NOTES:Handoff received from MAURO Valdes. Patient received awake, alert and oriented x 4. Requested another meal tray, called dietary and requested another breakfast tray for patient. Patient is on room air with no signs of acute respiratory distress noted. IV site is clean dry and intact 22 gauge on his left upper arm, patent and flushed. Patient has a right 22 gauge on his right upper arm patent and flushed. Bed is in the lowest position, call light within reach, court recording monitor on. Will continue to monitor.
[2020-08-05 08:00] VITALS: BP 122/50
--- NOTE | 2020-08-05 08:13 | NUR ---
NURSE NOTES:Spoke to patient regarding CT guided Biopsy, patient stated " my heart is no good and already does not pump well, there are too many tests in this place" Patient verbalized that he does not understand why he needs a biopsy when they have done imaging studies and X rays, patient still has questions regarding procedure, unable to obtain informed consent at this time.
--- NOTE | 2020-08-05 09:42 | NUR ---
NURSE NOTES:entered room to give patient morning medications, sales service technician was attempting to draw blood, patient refused lab draw multiple times.
[2020-08-05] MEDS: HydrALAZINE 25mg tab ORAL SCH ×2 (09:49→17:28)
--- NOTE | 2020-08-05 10:32 | General Progress Note ---
Subjective ROS Limited/Unobtainable: Yes Allergies: Coded Allergies: No Known Allergies (Unverified , 07/29/20) Objective Last 24 Hour Vital Signs Date Time Temp Pulse Resp B/P (MAP) Pulse Ox O2 Delivery O2 Flow Rate FiO2 08/05/20 09:49 122/50 08/05/20 09:00 Room Air 08/05/20 08:00 97.1 67 23 122/50 (74) 97 08/05/20 08:00 69 08/05/20 04:00 97.9 61 21 121/52 (75) 97 08/05/20 04:00 52 08/05/20 00:00 53 08/05/20 00:00 97.9 60 21 131/51 (77) 98 08/04/20 21:00 Room Air 08/04/20 20:30 96.5 08/04/20 20:00 96.5 60 20 154/72 (99) 98 08/04/20 20:00 49 08/04/20 17:24 129/63 08/04/20 16:00 96.5 56 20 129/63 (85) 98 08/04/20 16:00 63 08/04/20 12:00 48 08/04/20 12:00 97.9 66 20 141/75 (97) 93 Intake and Output 08/04/20 08/05/20 19:00 07:00 Intake Total 1340 ml 500 ml Output Total 500 ml Balance 1340 ml 0 ml Intake Oral 740 ml IV Total 600 ml Other 500 ml Other 500 ml # Voids 3 # Bowel Movements 3 Height (Feet): 5 Height (Inches): 7.00 Weight (Pounds): 188 General Appearance: no apparent distress EENT: normal ENT inspection Neck: supple Cardiovascular: normal rate Respiratory/Chest: decreased breath sounds Abdomen: normal bowel sounds, non tender, soft Extremities: non-tender Assessment/Plan Assessment/Plan: pancreatitis h/o colon CA liver lesions ? mets fu tumor markers pain control colonoscopy t was canceled given patient is now neutropenic and HR was in 30 S cardiology input appreciated>> now on hydralazine fu hem for neutropenia plan colonoscopy possibly on Monday if stable Abimael Alston MD Aug 05, 2020 10:32
[2020-08-05] MEDS ORDERED: Zolpidem 5mg tab ORAL PRN (10:45)
--- NOTE | 2020-08-05 11:58 | NUR ---
NURSE NOTES:Called pharmacy as patients IV fluid bag is empty, new bag is not scheduled until 1615, pharmacy will send IV fluids up early so that bag can be hung.
[2020-08-05] MEDS ORDERED: Morphine Sulfate 2mg/ml Inj(IV/IM USE ONLY) IVP PRN (12:15)
--- NOTE | 2020-08-05 13:07 | Surgery Progress Note ---
Surgery Progress Note Subjective Additional Comments no acute events comfortable stable no complains heme input noted Objective Last 24 Hour Vital Signs Date Time Temp Pulse Resp B/P (MAP) Pulse Ox O2 Delivery O2 Flow Rate FiO2 08/05/20 12:00 48 08/05/20 11:54 48 08/05/20 09:49 122/50 08/05/20 09:00 Room Air 08/05/20 08:00 97.1 67 23 122/50 (74) 97 08/05/20 08:00 69 08/05/20 04:00 97.9 61 21 121/52 (75) 97 08/05/20 04:00 52 08/05/20 00:00 53 08/05/20 00:00 97.9 60 21 131/51 (77) 98 08/04/20 21:00 Room Air 08/04/20 20:30 96.5 08/04/20 20:00 96.5 60 20 154/72 (99) 98 08/04/20 20:00 49 08/04/20 17:24 129/63 08/04/20 16:00 96.5 56 20 129/63 (85) 98 08/04/20 16:00 63 I&O Intake and Output 08/04/20 08/05/20 19:00 07:00 Intake Total 1340 ml 500 ml Output Total 500 ml Balance 1340 ml 0 ml Intake Oral 740 ml IV Total 600 ml Other 500 ml Other 500 ml # Voids 3 # Bowel Movements 3 Cardiovascular: RSR Respiratory: decreased breath sounds Abdomen: soft, non-tender, present bowel sounds, non-distended Extremities: no edema, no tenderness, no cyanosis Plan Problems: (1) Acute pancreatitis Assessment & Plan: 75-year-old male with pancreatitis. No EtOH history. Seems to be having intermittent episodes of pancreatitis as states that the symptoms not as first time and is not a pancreatitis in the past. States that he was told potentially in the past he may have pancreatic cancer but is unaware. Does not have any of his medical records with him and is a poor historian in the details. Elevated lipase trending down with IV fluids. Pain improving. Tolerating diet. No acute surgical intervention planned at this time. Conservative management of medical acute pancreatitis. lipase improving pain resolved tolerating diet There are several lesions identified in the liver. There is only one lesion in the caudate lobe which demonstrates typical appearance of a simple cyst. It is circumscribed with smooth margin and fluid intensity on all sequences without enhancement. The other lesions identified in segments 6 and 7 of the right lobe of the liver are not a simple cyst by MR criteria. No fluid intensity noted on T2 images. They show diminished enhancement compared to adjacent liver parenchyma on postcontrast images. These vary in size with a few which are barely perceptible 2 largest measuring 1.8 cm in segment 6. With the patient's history, these are suspicious for metastatic disease. Slight scalloping of the lateral margin of the right lobe of the liver noted and there is suggestion of slight asymmetric enhancement of the underlying parenchyma noted. Spleen is homogeneous. Tiny gallstone noted layering in the gallbladder. There is no intrahepatic or extrahepatic ductal dilatation. There is slight prominence of the pancreatic duct near the neck region but no discrete parenchymal pancreatic lesion identified. Adrenals are normal. There are multiple bilateral renal cysts. There is no signs of bowel distention. No ascites demonstrated. There is no adenopathy noted. Visualized portions of the lumbar spine appear unremarkable. IMPRESSION: MULTIPLE HEPATIC LESIONS NOTED, ONLY ONE OF WHICH IN THE CAUDATE LOBE APPEARS TO BE A SIMPLE CYST. THE OTHER LESIONS DO NOT MEET MR CRITERIA FOR SIMPLE CYST AND METASTATIC DISEASE SHOULD BE CONSIDERED GIVEN THE PATIENT'S CLINICAL HISTORY. CONSIDER PET/CT FOR CONFIRMATION IF CLINICALLY INDICATED. TINY GALLSTONE. SLIGHT PROMINENCE OF PANCREATIC DUCT BUT NO DISCRETE PANCREATIC LESION SEEN PRESENTLY. RENAL CYSTS. (2) Abdominal pain Assessment & Plan: Patient complaining of abdominal pain likely related to pancreatitis also complaining of pain with multiple episodes of diarrhea and some anal pain. Patient with history of colon cancer status post subtotal colectomy with what seems to be a J-pouch having persistent diarrhea multiple episodes a day followed by potential incontinence as well described by patient. Afebrile hemodynamic stable otherwise okay. Abdominal exam fairly benign. Prior incisions noted well-healed. Patient is interested in having a evaluation for a continent ileostomy. Dr. Kenn Dalton will evaluate patient as patient has researched him prior and has come to this facility to be seen by him as well. CT scan reviewed. Patient has multiple liver lesions that are concerning for potential metastatic disease. MRI ordered. Will need further work-up and management which can be done in outpatient setting by patient's PCP and oncologist once patient's pancreatitis is improved. Thank you will follow with recommendations Mild dependent atelectasis noted in both lung bases. There are several low densities identified in the caudate and right lobe of the liver. A few are circumscribed and low density resembling cysts but there are several in segment 6 and segment 7 of the liver which are not cystic. Patient does have known history of colon cancer and metastatic hepatic lesions is suspected. There is some low-density scalloping of the lateral margin right lobe of liver on images 22-25 which may reflect serosal disease as well. The spleen is homogeneous. Gallbladder is without sludge or stone and there is no wall thickening. Pancreas is mostly homogeneous. There is a focus of coarse calcification at the pancreatic head. Adrenals are normal in morphology. Multiple bilateral exophytic cysts of the kidneys noted. Postoperative changes noted near the GE junction. Small bowel loops are nondistended. Patient is status post colectomy. Anastomotic sutures noted in the region of the rectum. There is some soft tissue thickening in the presacral space most likely postoperative changes but focal recurrent tumor cannot be excluded. The appendix is not visualized. There is no free fluid or free air. No pathologic adenopathy demonstrated. Urinary bladder appears unremarkable. There is no suspicious superficial soft tissue or osseous abnormality. IMPRESSION: MULTIPLE LOW-DENSITY LESIONS IN THE LIVER, SOME OF WHICH ARE NOT SIMPLE CYSTS. WITH HISTORY OF COLON CANCER, METASTATIC HEPATIC LESIONS SUSPECTED. COARSE CALCIFICATION AT THE PANCREATIC HEAD. QUESTION HISTORY OF OLD PANCREATITIS. RENAL CYSTS. POSTOPERATIVE CHANGES NEAR THE GE JUNCTION. ALSO APPARENT COLECTOMY. SOME SOFT TISSUE THICKENING IN THE PRESACRAL SPACE MOST LIKELY POSTOPERATIVE CHANGES BUT FOCAL RECURRENT TUMOR CANNOT BE EXCLUDED. (3) Nausea vomiting and diarrhea Assessment & Plan: d/c planning outpatient f/u for oncology work up at [facility] with his oncologist Alfredo Phillip Aug 05, 2020 13:07
--- NOTE | 2020-08-05 13:13 | Internal Med Progress Note ---
Subjective Date of Service: Aug 05, 2020 Physician Name Duke Salcedo Attending Physician Antoine Kay MD Current Medications Medications (Trade) Dose Ordered Sig/Stacy Route PRN Reason Start Time Stop Time Status Last Admin Dose Admin Acetaminophen (Tylenol) 650 mg Q6H PRN ORAL Temp >100.5 07/30/20 00:15 08/29/20 00:14 Dextrose/ Electrolytes 1,000 ml @ 100 mls/hr Q10H IV 07/30/20 00:15 08/29/20 00:14 08/04/20 19:59 Heparin Sodium (Porcine) (Heparin 5000 units/ml) 5,000 units EVERY 8 HOURS SUBQ 07/30/20 06:00 09/13/20 05:59 08/04/20 14:11 Hydralazine HCl (Apresoline) 25 mg BID ORAL 08/03/20 18:00 11/01/20 17:59 08/05/20 09:49 Lidocaine HCl (Xylocaine 1% 30ml) 30 ml NOW PRN INJ Radiology Procedure 08/05/20 06:45 08/07/20 06:44 Loperamide HCl (Imodium) 2 mg Q4H PRN ORAL Diarrhea 07/30/20 16:00 08/29/20 15:59 07/31/20 08:15 Morphine Sulfate (Morphine Sulfate) 2 mg Q4H PRN IVP FOR MODERATE PAIN 4 TO 6 08/05/20 12:15 08/12/20 12:14 Morphine Sulfate (Morphine Sulfate) 4 mg Q4H PRN IVP Severe Pain (Pain Scale 7-10) 08/05/20 12:15 08/12/20 12:14 Ondansetron HCl (Zofran) 4 mg Q4H PRN IVP Nausea & Vomiting 07/30/20 00:15 08/29/20 00:14 08/03/20 15:26 Sodium Bicarbonate (Sodium Bicarbonate 4%) 1 ml NOW PRN IV Radiology Procedure 08/05/20 06:45 08/07/20 06:44 Zolpidem Tartrate (Ambien) 5 mg HSPRN PRN ORAL Insomnia 08/05/20 10:45 08/12/20 10:44 Allergies: Coded Allergies: No Known Allergies (Unverified , 07/29/20) ROS Limited/Unobtainable: Yes Subjective 75 YO M admitted with abdominal pain. Now acute pancreatitis and liver masses. Cover for Int Med-DR Kay. Colonoscopy for 08/03 cancelled due to neutropenia and bradycardia Objective Last Vital Signs Date Time Temp Pulse Resp B/P (MAP) Pulse Ox O2 Delivery O2 Flow Rate FiO2 08/05/20 12:00 48 08/05/20 09:49 122/50 08/05/20 09:00 Room Air 08/05/20 08:00 97.1 23 97 Microbiology Date/Time Source Procedure Growth Status 08/04/20 18:40 Stool Clostridium difficile Toxin Assay - Final Complete Intake and Output 08/04/20 08/05/20 19:00 07:00 Intake Total 1340 ml 500 ml Output Total 500 ml Balance 1340 ml 0 ml Intake Oral 740 ml IV Total 600 ml Other 500 ml Other 500 ml # Voids 3 # Bowel Movements 3 Objective Objective General: No acute distress, awake and alert HEENT: NCAT, sclera anicteric, PERRL, EOMI. Neck: Supple, no significant jugular venous distention, Lungs: Good inspiratory effort, clear to auscultation bilaterally, no Wheeze or Rales. Heart: Regular rate and rhythm, normal S1/S2, no murmurs/gallops Abdomen: soft, less Epigastric tender, nondistended. Normoactive bowel sounds. / Rectal: Refused and deferred. Extremities: No Cyanosis , clubbing or edema. Neuro: A&O x 3, Able to move all extremities Skin: warm, no rashes or lesions Psych: Normal mood and affect Assessment/Plan Assessment/Plan Assessment/Plan Assessment/Plan Acute pancreatitis History of colon cancer status post resection. Liver masses/lesion possible metastatic disease. Bradycardia leukocytosis Plan: Tolerated Regular diet gastroenterology = Dr Alston. Colonoscopy scheduled for Monday08/03/20 cancelled Monitor laboratory. DVT prophylaxis heparin subcu. CODE STATUS is full code. consider PET/CT as outpatient. heme/onc consult=Duke Mills MD Aug 05, 2020 13:12
--- NOTE | 2020-08-05 13:17 | NUR ---
RD ASSESSMENT & RECOMMENDATIONS SEE CARE ACTIVITY FOR COMPLETE ASSESSMENT DAILY ESTIMATED NEEDS: Needs based on Pancreatitis 71.8kg 25-30 kcals/kg 4407-5862 total kcals 1-1.5 g protein/kg 72-108 g total protein 25-30 mL/kg 0003-0003 total fluid mLs NUTRITION DIAGNOSIS: Altered nutrition related lab values r/t clinical status as evidenced by elevated lipase (trending down now 1279), uglu 4+ on adm CURRENT DIET: Full liquid diet -> now cardiac PO DIET RECOMMENDATIONS: Low Na/ Low Fat diet/ Low Fiber/ neutropenic precautions ADDITIONAL RECOMMENDATIONS: 1) Check HgA1C 2) Advance diet as tolerated Monitor tolerance 3) Rec bedside BG checks/ niss
--- NOTE | 2020-08-05 14:07 | Cardiac Electrophysiology PN ---
Assessment/Plan Assessment/Plan 1. Profound bradycardia with the heart rate in the 30s. The patient is off of any AV julius blocking agents and the patient received atropine. Better on hydralazine 25 bid. Echo EF 55%. Being ruled out for Covid 2. Hypertension. On hydralazine 25 mg b.i.d. 3. Acute pancreatitis with high lipase. Follow up with Dr. Alston. 4. History of colon cancer with now liver lesions, questionable metastasis. Follow up tumor markers. Colonoscopy was rescheduled as the patient's heart rate was in the 30s. The patient was also evaluated by Dr. Kenn Dalton who, based on age alone, felt that he is not a candidate to undergo creation of a Calix continent ileostomy [place] Refused Liver biopsy 5. Neutropenia, white count of 1.9, in reverse isolation. GIRISH RN Subjective Subjective In SR being ruled out for Covid. In neutropenic precaution. Echo pending. Refusing meds and liver Bx Objective Last 24 Hour Vital Signs Date Time Temp Pulse Resp B/P (MAP) Pulse Ox O2 Delivery O2 Flow Rate FiO2 08/05/20 12:00 48 08/05/20 11:54 48 08/05/20 09:49 122/50 08/05/20 09:00 Room Air 08/05/20 08:00 97.1 67 23 122/50 (74) 97 08/05/20 08:00 69 08/05/20 04:00 97.9 61 21 121/52 (75) 97 08/05/20 04:00 52 08/05/20 00:00 53 08/05/20 00:00 97.9 60 21 131/51 (77) 98 08/04/20 21:00 Room Air 08/04/20 20:30 96.5 08/04/20 20:00 96.5 60 20 154/72 (99) 98 08/04/20 20:00 49 08/04/20 17:24 129/63 08/04/20 16:00 96.5 56 20 129/63 (85) 98 08/04/20 16:00 63 Intake and Output 08/04/20 08/05/20 19:00 07:00 Intake Total 1340 ml 500 ml Output Total 500 ml Balance 1340 ml 0 ml Intake Oral 740 ml IV Total 600 ml Other 500 ml Other 500 ml # Voids 3 # Bowel Movements 3 Microbiology Date/Time Source Procedure Growth Status 08/04/20 18:40 Stool Clostridium difficile Toxin Assay - Final Complete 08/04/20 10:35 Nasopharynx Coronavirus COVID-19 PCR ([facility]) - Final Complete Objective HEAD AND NECK: No JVD. LUNGS: Clear. CARDIOVASCULAR: Bradycardic S1 and S2 with no gallop. ABDOMEN: Soft and nontender. EXTREMITIES: No pitting edema. Frankie Arevalo MD Aug 05, 2020 14:07
[2020-08-05 16:00] VITALS: BP 145/60
--- NOTE | 2020-08-05 19:38 | NUR ---
NURSE NOTES: Pt received from MAURO Anne. Pt is resting comfortably in bed and denies any pain. Pt is A/Ox4; Pt is ambulatory and voids independently. Pt has cardiac monitoring SR and asymptomatic. Pt is breathing unlabored on RA and asymptomatic. Pt has ASHLEY 22G and JOHNSON 22G patent with dressing dry and intact. Bed is locked and in lowest position with call light within reach. Will continue to monitor.
--- NOTE | 2020-08-05 19:52 | NUR ---
NURSE HAND-OFF REPORT: Important Events on Shift:Patient refused lab draws this AM Patient Status: stable Diet: cardiac Pending Orders: Pending Results/Labs: Pending MD notification: Latest Vital Signs: Temperature 97.9 , Pulse 72 , B/P 145 /60 , Respiratory Rate 22 , O2 SAT 97 , Room Air, O2 Flow Rate . Vital Sign Comment: EKG Rhythm: Sinus Bradycardia Rhythm change?: N MD Notified?: N - MD Response: Latest Carreon Fall Score: 35 Fall Risk: Medium Risk Safety Measures: Call light Within Reach, Bed Alarm Zone 1, Side Rails Side Rails x2, Bed position Low and Locked. Fall Precautions: Patient Fall Education Report given to MAURO Rea.
[2020-08-05 20:00] VITALS: BP 158/68
[2020-08-05] MEDS: Morphine Sulfate 4mg/ml Inj (IV USE ONLY) IVP PRN (20:31)
--- NOTE | 2020-08-05 23:26 | NUR ---
NURSE NOTES: Security staff asked to keep patient's keys to motor home vehicle. [address] [employer] are being kept at [employer]. Pt is aware. Will continue to monitor.
[2020-08-06] VITALS: BP 157/55
[2020-08-06] MEDS: D5 1/2NS w/KCl 20mEq 1,000 ML IV SCH ×3 (02:15→21:58)
[2020-08-06 04:00] VITALS: BP 122/56
--- NOTE | 2020-08-06 04:30 | NUR ---
NURSE NOTES: IV Line LAC 22G D/C per patient. Pt was moving restless in way and stated in came out in his sleep. Pt received education about IV line and orientation about how to manage space with IV equipment. Pt continues IV fluids in RAC 22G. Will continue to monitor.
[2020-08-06] MEDS: Heparin 5000 units/ml inj SUBQ SCH ×3 (05:17→21:57)
--- NOTE | 2020-08-06 06:31 | Hematology/Onc Progress Note ---
Assessment/Plan Assessment/Plan Assessment and recs # MULTIPLE HEPATIC LESIONS NOTED, ONLY ONE OF WHICH IN THE CAUDATE LOBE APPEARS TO BE A SIMPLE CYST. THE OTHER LESIONS DO NOT MEET MR CRITERIA FOR SIMPLE CYST AND METASTATIC DISEASE SHOULD BE CONSIDERED GIVEN THE PATIENT'S CLINICAL HISTORY. CONSIDER PET/CT FOR CONFIRMATION IF CLINICALLY INDICATED. --> DID have prior abdominal surgery 3 years ago with hx of cancer --> to review medical records from before once obtained --> tumor markers have been ordered --> colo v egd and biopsy as per gi --> improve underyling cards and neutropenia issues # Pancytopenia/Neutropenia likely due to metastatic malignancy --> hep and hiv ordered --> smear reviewed --> likely bone marrow origin -> refusing labs # Nausea vomiting and diarrhea --> likely due to above # Acute pancreatitis --> ivfs, gi.surg eval # Hypokalemia --> replete withk # History of colon cancer status post resection. # Liver masses/lesion possible metastatic disease. # Bradycardia # Dvt ppx scds Appreciate consultation and dany rn Subjective HEENT: Denies: no symptoms, eye pain, blurred vision, tearing, double vision, ear pain, ear discharge, nose pain, nose congestion, throat pain, throat swelling, mouth pain, mouth swelling, other Cardiovascular: Denies: no symptoms, chest pain, edema, irregular heart rate, lightheadedness, palpitations, syncope, other Respiratory: Denies: no symptoms, cough, shortness of breath, SOB with excertion, SOB at rest, sputum, wheezing, other Gastrointestinal/Abdominal: Denies: no symptoms, abdomen distended, abdominal pain, black stools, tarry stools, blood in stool, constipated, diarrhea, difficulty swallowing, nausea, poor appetite, poor fluid intake, rectal bleeding, vomiting, other Genitourinary: Denies: no symptoms, burning, discharge, frequency, flank pain, hematuria, incontinence, pain, urgency, other Neurologic/Psychiatric: Denies: no symptoms, anxiety, depressed, emotional problems, headache, numbness, paresthesia, pre-existing deficit, seizure, tingling, tremors, weakness, other Endocrine: Denies: no symptoms, excessive sweating, flushing, intolerance to cold, intolerance to heat, increased hunger, increased thirst, increased urine, unexplained weight gain, unexplained weight loss, other Hematologic/Lymphatic: Denies: no symptoms, anemia, easy bleeding, easy bruising, adenopathy, other Allergies: Coded Allergies: No Known Allergies (Unverified , 07/29/20) Subjective 2/4 continues to have diarrhea, will hold off biopsy, will get pet outpatient, refused tumor marker labs Objective Objective Current Medications Medications (Trade) Dose Ordered Sig/Stacy Route PRN Reason Start Time Stop Time Status Last Admin Dose Admin Acetaminophen (Tylenol) 650 mg Q6H PRN ORAL Temp >100.5 07/30/20 00:15 08/29/20 00:14 Dextrose/ Electrolytes 1,000 ml @ 100 mls/hr Q10H IV 07/30/20 00:15 08/29/20 00:14 08/06/20 02:15 Heparin Sodium (Porcine) (Heparin 5000 units/ml) 5,000 units EVERY 8 HOURS SUBQ 07/30/20 06:00 09/13/20 05:59 08/05/20 20:33 Hydralazine HCl (Apresoline) 25 mg BID ORAL 08/03/20 18:00 11/01/20 17:59 08/05/20 17:28 Lidocaine HCl (Xylocaine 1% 30ml) 30 ml NOW PRN INJ Radiology Procedure 08/05/20 06:45 08/07/20 06:44 Loperamide HCl (Imodium) 2 mg Q4H PRN ORAL Diarrhea 07/30/20 16:00 08/29/20 15:59 08/05/20 20:31 Morphine Sulfate (Morphine Sulfate) 2 mg Q4H PRN IVP FOR MODERATE PAIN 4 TO 6 08/05/20 12:15 08/12/20 12:14 08/05/20 15:18 Morphine Sulfate (Morphine Sulfate) 4 mg Q4H PRN IVP Severe Pain (Pain Scale 7-10) 08/05/20 12:15 08/12/20 12:14 08/05/20 20:31 Ondansetron HCl (Zofran) 4 mg Q4H PRN IVP Nausea & Vomiting 07/30/20 00:15 08/29/20 00:14 08/03/20 15:26 Sodium Bicarbonate (Sodium Bicarbonate 4%) 1 ml NOW PRN IV Radiology Procedure 08/05/20 06:45 08/07/20 06:44 Zolpidem Tartrate (Ambien) 5 mg HSPRN PRN ORAL Insomnia 08/05/20 10:45 08/12/20 10:44 Last 24 Hour Vital Signs Date Time Temp Pulse Resp B/P (MAP) Pulse Ox O2 Delivery O2 Flow Rate FiO2 08/06/20 04:00 97.7 67 20 122/56 (78) 95 08/06/20 04:00 55 08/06/20 00:00 80 08/06/20 00:00 96.5 60 20 157/55 (89) 99 08/05/20 21:00 Room Air 08/05/20 20:00 69 08/05/20 20:00 97.0 60 20 158/68 (98) 99 08/05/20 17:28 145/60 08/05/20 16:00 72 08/05/20 16:00 97.9 60 22 145/60 (88) 97 08/05/20 12:00 48 08/05/20 11:54 48 08/05/20 09:49 122/50 08/05/20 09:00 Room Air 08/05/20 08:00 97.1 67 23 122/50 (74) 97 08/05/20 08:00 69 08/05/20 04:00 97.9 61 21 121/52 (75) 97 08/05/20 04:00 52 08/05/20 00:00 53 08/05/20 00:00 97.9 60 21 131/51 (77) 98 08/04/20 21:00 Room Air 08/04/20 20:30 96.5 08/04/20 20:00 96.5 60 20 154/72 (99) 98 08/04/20 20:00 49 08/04/20 17:24 129/63 08/04/20 16:00 96.5 56 20 129/63 (85) 98 08/04/20 16:00 63 08/04/20 12:00 48 08/04/20 12:00 97.9 66 20 141/75 (97) 93 08/04/20 09:00 Room Air 08/04/20 08:51 113/62 08/04/20 08:00 49 08/04/20 08:00 96.8 48 20 113/62 (79) 94 Intake and Output 08/05/20 08/06/20 19:00 07:00 Intake Total 1523 ml Output Total 500 ml Balance 1023 ml Intake Oral 600 ml IV Total 923 ml Other 500 ml # Voids 6 6 # Bowel Movements 3 11 Labs Test 08/03/20 09:25 08/04/20 06:42 White Blood Count 1.9 K/UL (4.8-10.8) 2.7 K/UL (4.8-10.8) Red Blood Count 3.58 M/UL (4.70-6.10) 3.46 M/UL (4.70-6.10) Hemoglobin 9.9 G/DL (14.2-18.0) 9.9 G/DL (14.2-18.0) Hematocrit 31.3 % (42.0-52.0) 30.6 % (42.0-52.0) Mean Corpuscular Volume 87 FL (80-99) 89 FL (80-99) Mean Corpuscular Hemoglobin 27.7 PG (27.0-31.0) 28.7 PG (27.0-31.0) Mean Corpuscular Hemoglobin Concent 31.7 G/DL (32.0-36.0) 32.4 G/DL (32.0-36.0) Red Cell Distribution Width 16.3 % (11.6-14.8) 16.2 % (11.6-14.8) Platelet Count 154 K/UL (150-450) 145 K/UL (150-450) Mean Platelet Volume 5.9 FL (6.5-10.1) 6.1 FL (6.5-10.1) Neutrophils (%) (Auto) % (45.0-75.0) % (45.0-75.0) Lymphocytes (%) (Auto) % (20.0-45.0) % (20.0-45.0) Monocytes (%) (Auto) % (1.0-10.0) % (1.0-10.0) Eosinophils (%) (Auto) % (0.0-3.0) % (0.0-3.0) Basophils (%) (Auto) % (0.0-2.0) % (0.0-2.0) Differential Total Cells Counted 100 100 Neutrophils % (Manual) 53 % (45-75) 58 % (45-75) Lymphocytes % (Manual) 18 % (20-45) 21 % (20-45) Monocytes % (Manual) 27 % (1-10) 16 % (1-10) Eosinophils % (Manual) 2 % (0-3) 5 % (0-3) Basophils % (Manual) 0 % (0-2) 0 % (0-2) Band Neutrophils 0 % (0-8) 0 % (0-8) Platelet Estimate Adequate Decreased Platelet Morphology Normal Normal Hypochromasia 1+ 1+ Anisocytosis 1+ 1+ Sodium Level 140 MMOL/L (136-145) 141 MMOL/L (136-145) Potassium Level 3.7 MMOL/L (3.5-5.1) 4.2 MMOL/L (3.5-5.1) Chloride Level 107 MMOL/L (98-107) 108 MMOL/L (98-107) Carbon Dioxide Level 29 MMOL/L (21-32) 27 MMOL/L (21-32) Anion Gap 4 mmol/L (5-15) 6 mmol/L (5-15) Blood Urea Nitrogen 6 mg/dL (7-18) 7 mg/dL (7-18) Creatinine 0.8 MG/DL (0.55-1.30) 0.8 MG/DL (0.55-1.30) Estimat Glomerular Filtration Rate > 60 mL/min (>60) > 60 mL/min (>60) Glucose Level 99 MG/DL (74-106) 105 MG/DL (74-106) Calcium Level 8.2 MG/DL (8.5-10.1) 8.5 MG/DL (8.5-10.1) Lipase 384 U/L (73-393) 714 U/L (73-393) Total Bilirubin 0.4 MG/DL (0.2-1.0) Aspartate Amino Transf (AST/SGOT) 38 U/L (15-37) Alanine Aminotransferase (ALT/SGPT) 23 U/L (12-78) Alkaline Phosphatase 201 U/L (46-116) Total Protein 5.5 G/DL (6.4-8.2) Albumin 2.1 G/DL (3.4-5.0) Globulin 3.4 g/dL Albumin/Globulin Ratio 0.6 (1.0-2.7) Amylase Level 113 U/L (25-115) Thyroid Stimulating Hormone (TSH) 0.613 uiU/mL (0.358-3.740) Free Thyroxine 1.08 NG/DL (0.76-1.46) Height (Feet): 5 Height (Inches): 7.00 Weight (Pounds): 188 Objective Objective General: No acute distress, awake and alert HEENT: NCAT, sclera anicteric, PERRL, EOMI. Neck: Supple, no significant jugular venous distention, Lungs: Good inspiratory effort, clear to auscultation bilaterally, no Wheeze or Rales. Heart: Regular rate and rhythm, normal S1/S2, no murmurs/gallops Abdomen: soft, less Epigastric tender, nondistended. Normoactive bowel sounds. / Rectal: Refused and deferred. Extremities: No Cyanosis , clubbing or edema. Neuro: A&O x 3, Able to move all extremities Skin: warm, no rashes or lesions Psych: Normal mood and affect Jakob Ferrer MD Aug 06, 2020 06:30
--- NOTE | 2020-08-06 06:40 | NUR ---
NURSE HAND-OFF REPORT: Important Events on Shift:Pt continued scheduled medications. Pt received PRN medication for severe pain and reported relief with one dose. Pt DC LAC 22G IV line Patient Status: Stable Diet: Cardiac Diet Pending Orders: Pending Results/Labs:AM Labs Pending MD notification: Latest Vital Signs: Temperature 97.7 , Pulse 55 , B/P 122 /56 , Respiratory Rate 20 , O2 SAT 95 , Room Air, O2 Flow Rate . Vital Sign Comment: VSS EKG Rhythm: Sinus Bradycardia Rhythm change?: N MD Notified?: N - MD Response: Latest Carreon Fall Score: 35 Fall Risk: Medium Risk Safety Measures: Call light Within Reach, Bed Alarm Zone 1, Side Rails Side Rails x2, Bed position Low and Locked. Fall Precautions: Patient Fall Education Report given to MAURO Marin.
[2020-08-06 07:11] LABS: HEMATOCRIT 36.9 % (42.0-52.0); HEMOGLOBIN 11.4 G/DL (14.2-18.0); MEAN CORPUSCULAR VOLUME 91 FL (80-99); PLATELET COUNT 180 K/UL (150-450); RED BLOOD COUNT 4.07 M/UL (4.70-6.10); RED CELL DISTRIBUTION WIDTH 16.7 % (11.6-14.8); WHITE BLOOD COUNT 2.2 K/UL (4.8-10.8)
[2020-08-06 07:13] LABS: LYMPHOCYTES % (AUTO) 16.3 % (20.0-45.0); NEUTROPHILS % (AUTO) 72.3 % (45.0-75.0)
[2020-08-06 07:14] LABS: BASOPHILS % (AUTO) 0.9 % (0.0-2.0); EOSINOPHILS % (AUTO) 4.4 % (0.0-3.0); MONOCYTES % (AUTO) 6.1 % (1.0-10.0)
--- NOTE | 2020-08-06 07:40 | NUR ---
NURSE NOTES: Report received from Álvaro WADE. Pt is AxOx4, not in pain or distress. Still with episodes of sinus bradycardia, HR low 40's and asymptomatic. PIV on right upper arm patent and infusing D5 1/2 NS + 20KCL @ 100cc/hr. Pt is ambulatory and continent. Bed low and locked, siderails up x2, call light placed within reach and instructed to call nurse for assistance. Will continue to monitor.
[2020-08-06 07:54] LABS: AMYLASE 117 U/L (25-115)
[2020-08-06 07:55] LABS: ALANINE AMINOTRANSFERASE 32 U/L (12-78); ALBUMIN 2.7 G/DL (3.4-5.0); ALBUMIN/GLOBULIN RATIO 0.7 (1.0-2.7); ALKALINE PHOSPHATASE 249 U/L (46-116); ANION GAP 7 mmol/L (5-15); ASPARTATE AMINO TRANSFERASE 34 U/L (15-37); BILIRUBIN,TOTAL 0.3 MG/DL (0.2-1.0); BLOOD UREA NITROGEN 8 mg/dL (7-18); CALCIUM 9.1 MG/DL (8.5-10.1); CARBON DIOXIDE 26 MMOL/L (21-32); CHLORIDE 109 MMOL/L (98-107); CREATININE 0.8 MG/DL (0.55-1.30); POTASSIUM 4.2 MMOL/L (3.5-5.1); SODIUM 142 MMOL/L (136-145)
[2020-08-06 08:00] VITALS: BP 133/70
--- NOTE | 2020-08-06 08:10 | Surgery Progress Note ---
Surgery Progress Note Subjective Additional Comments afebrile, HD stable labs noted micro reviewed comfortable appearing no n/v does not want CT biopsy ?scope Objective Last 24 Hour Vital Signs Date Time Temp Pulse Resp B/P (MAP) Pulse Ox O2 Delivery O2 Flow Rate FiO2 08/06/20 04:00 97.7 67 20 122/56 (78) 95 08/06/20 04:00 55 08/06/20 00:00 80 08/06/20 00:00 96.5 60 20 157/55 (89) 99 08/05/20 21:00 Room Air 08/05/20 20:00 69 08/05/20 20:00 97.0 60 20 158/68 (98) 99 08/05/20 17:28 145/60 08/05/20 16:00 72 08/05/20 16:00 97.9 60 22 145/60 (88) 97 08/05/20 12:00 48 08/05/20 11:54 48 08/05/20 09:49 122/50 08/05/20 09:00 Room Air I&O Intake and Output 08/05/20 08/06/20 19:00 07:00 Intake Total 1523 ml Output Total 500 ml Balance 1023 ml Intake Oral 600 ml IV Total 923 ml Other 500 ml # Voids 6 6 # Bowel Movements 3 11 Cardiovascular: RSR Respiratory: clear Abdomen: soft, flat, non-tender, present bowel sounds Extremities: no edema, no tenderness, no cyanosis Laboratory Tests Test 08/06/20 06:57 White Blood Count 2.2 K/UL (4.8-10.8) L Red Blood Count 4.07 M/UL (4.70-6.10) L Hemoglobin 11.4 G/DL (14.2-18.0) L Hematocrit 36.9 % (42.0-52.0) L Mean Corpuscular Volume 91 FL (80-99) Mean Corpuscular Hemoglobin 28.1 PG (27.0-31.0) Mean Corpuscular Hemoglobin Concent 31.0 G/DL (32.0-36.0) L Red Cell Distribution Width 16.7 % (11.6-14.8) H Platelet Count 180 K/UL (150-450) Mean Platelet Volume 6.1 FL (6.5-10.1) L Neutrophils (%) (Auto) 72.3 % (45.0-75.0) Lymphocytes (%) (Auto) 16.3 % (20.0-45.0) L Monocytes (%) (Auto) 6.1 % (1.0-10.0) Eosinophils (%) (Auto) 4.4 % (0.0-3.0) H Basophils (%) (Auto) 0.9 % (0.0-2.0) Sodium Level 142 MMOL/L (136-145) Potassium Level 4.2 MMOL/L (3.5-5.1) Chloride Level 109 MMOL/L (98-107) H Carbon Dioxide Level 26 MMOL/L (21-32) Anion Gap 7 mmol/L (5-15) Blood Urea Nitrogen 8 mg/dL (7-18) Creatinine 0.8 MG/DL (0.55-1.30) Estimat Glomerular Filtration Rate > 60 mL/min (>60) Glucose Level 89 MG/DL (74-106) Calcium Level 9.1 MG/DL (8.5-10.1) Total Bilirubin 0.3 MG/DL (0.2-1.0) Aspartate Amino Transf (AST/SGOT) 34 U/L (15-37) Alanine Aminotransferase (ALT/SGPT) 32 U/L (12-78) Alkaline Phosphatase 249 U/L (46-116) H Total Protein 6.6 G/DL (6.4-8.2) Albumin 2.7 G/DL (3.4-5.0) L Globulin 3.9 g/dL Albumin/Globulin Ratio 0.7 (1.0-2.7) L Amylase Level 117 U/L (25-115) H Lipase 648 U/L (73-393) H Plan Problems: (1) Acute pancreatitis Assessment & Plan: 75-year-old male with pancreatitis. No EtOH history. Seems to be having intermittent episodes of pancreatitis as states that the symptoms not as first time and is not a pancreatitis in the past. States that he was told potentially in the past he may have pancreatic cancer but is unaware. Does not have any of his medical records with him and is a poor historian in the details. Elevated lipase trending down with IV fluids. Pain improving. Tolerating diet. No acute surgical intervention planned at this time. Conservative management of medical acute pancreatitis. lipase improving pain resolved tolerating diet There are several lesions identified in the liver. There is only one lesion in the caudate lobe which demonstrates typical appearance of a simple cyst. It is circumscribed with smooth margin and fluid intensity on all sequences without enhancement. The other lesions identified in segments 6 and 7 of the right lobe of the liver are not a simple cyst by MR criteria. No fluid intensity noted on T2 images. They show diminished enhancement compared to adjacent liver parenchyma on postcontrast images. These vary in size with a few which are barely perceptible 2 largest measuring 1.8 cm in segment 6. With the patient's history, these are suspicious for metastatic disease. Slight scalloping of the lateral margin of the right lobe of the liver noted and there is suggestion of slight asymmetric enhancement of the underlying parenchyma noted. Spleen is homogeneous. Tiny gallstone noted layering in the gallbladder. There is no intrahepatic or extrahepatic ductal dilatation. There is slight prominence of the pancreatic duct near the neck region but no discrete parenchymal pancreatic lesion identified. Adrenals are normal. There are multiple bilateral renal cysts. There is no signs of bowel distention. No ascites demonstrated. There is no adenopathy noted. Visualized portions of the lumbar spine appear unremarkable. IMPRESSION: MULTIPLE HEPATIC LESIONS NOTED, ONLY ONE OF WHICH IN THE CAUDATE LOBE APPEARS TO BE A SIMPLE CYST. THE OTHER LESIONS DO NOT MEET MR CRITERIA FOR SIMPLE CYST AND METASTATIC DISEASE SHOULD BE CONSIDERED GIVEN THE PATIENT'S CLINICAL HISTORY. CONSIDER PET/CT FOR CONFIRMATION IF CLINICALLY INDICATED. TINY GALLSTONE. SLIGHT PROMINENCE OF PANCREATIC DUCT BUT NO DISCRETE PANCREATIC LESION SEEN PRESENTLY. RENAL CYSTS. (2) Abdominal pain Assessment & Plan: Patient complaining of abdominal pain likely related to pancreatitis also complaining of pain with multiple episodes of diarrhea and some anal pain. Patient with history of colon cancer status post subtotal colec donald with what seems to be a J-pouch having persistent diarrhea multiple episodes a day followed by potential incontinence as well described by patient. Afebrile hemodynamic stable otherwise okay. Abdominal exam fairly benign. Prior incisions noted well-healed. Patient is interested in having a evaluation for a continent ileostomy. Dr. Kenn Dalton will evaluate patient as patient has researched him prior and has come to this facility to be seen by him as well. CT scan reviewed. Patient has multiple liver lesions that are concerning for potential metastatic disease. MRI ordered. Will need further work-up and management which can be done in outpatient setting by patient's PCP and oncologist once patient's pancreatitis is improved. Thank you will follow with recommendations Mild dependent atelectasis noted in both lung bases. There are several low densities identified in the caudate and right lobe of the liver. A few are circumscribed and low density resembling cysts but there are several in segment 6 and segment 7 of the liver which are not cystic. Patient does have known history of colon cancer and metastatic hepatic lesions is suspected. There is some low-density scalloping of the lateral margin right lobe of liver on images 22-25 which may reflect serosal disease as well. The spleen is homogeneous. Gallbladder is without sludge or stone and there is no wall thickening. Pancreas is mostly homogeneous. There is a focus of coarse calcification at the pancreatic head. Adrenals are normal in morphology. Multiple bilateral exophytic cysts of the kidneys noted. Postoperative changes noted near the GE junction. Small bowel loops are nondistended. Patient is status post colectomy. Anastomotic sutures noted in the region of the rectum. There is some soft tissue thickening in the presacral space most likely postoperative changes but focal recurrent tumor cannot be excluded. The appendix is not visualized. There is no free fluid or free air. No pathologic adenopathy demonstrated. Urinary bladder appears unremarkable. There is no suspicious superficial soft tissue or osseous abnormality. IMPRESSION: MULTIPLE LOW-DENSITY LESIONS IN THE LIVER, SOME OF WHICH ARE NOT SIMPLE CYSTS. WITH HISTORY OF COLON CANCER, METASTATIC HEPATIC LESIONS SUSPECTED. COARSE CALCIFICATION AT THE PANCREATIC HEAD. QUESTION HISTORY OF OLD PANCREATITIS. RENAL CYSTS. POSTOPERATIVE CHANGES NEAR THE GE JUNCTION. ALSO APPARENT COLECTOMY. SOME SOFT TISSUE THICKENING IN THE PRESACRAL SPACE MOST LIKELY POSTOPERATIVE CHANGES BUT FOCAL RECURRENT TUMOR CANNOT BE EXCLUDED. (3) Nausea vomiting and diarrhea Assessment & Plan: d/c planning outpatient f/u for oncology work up at [facility] with his oncologist Alfredo Phillip Aug 06, 2020 08:10
[2020-08-06] MEDS: Morphine Sulfate 4mg/ml Inj (IV USE ONLY) IVP PRN ×2 (08:28→12:04)
[2020-08-06] MEDS: HydrALAZINE 25mg tab ORAL SCH ×2 (08:45→17:12)
--- NOTE | 2020-08-06 09:15 | NUR ---
CASE MANAGEMENT:REVIEW 08/06/20 SI: ACUTE PANCREATITIS. LIVER MASSES H/O COLON CANCER. 97.7 67 20 122/56 95% ON RA WBC-2.2 H/H-11.4/36.9 AMYLASE+117 LIPASE+648 IS: HYDRALAZINE PO BID HEPARIN SQ Q8HRS IVF@100/HR : TRANSFERRED FROM MED/SURG TO TELEMETRY DCP: FROM HOME IN [place] PLAN: RESCHEDULE COLONOSCOPY ~ NEUTROPENIC AND HR TO 41
--- NOTE | 2020-08-06 10:18 | Cardiac Electrophysiology PN ---
Assessment/Plan Assessment/Plan 1. Profound bradycardia with the heart rate in the 30s off of any AV julius blocking agents and the patient received atropine. Better on hydralazine 25 bid. Echo EF 55%. Ruled out for Covid 2. Hypertension. On hydralazine 25 mg b.i.d. 3. Acute pancreatitis with high lipase. Follow up with Dr. Alston. 4. History of colon cancer with now liver lesions, questionable metastasis. Follow up tumor markers. Colonoscopy was rescheduled as the patient's heart rate was in the 30s. The patient was also evaluated by Dr. Kenn Dalton who, based on age alone, felt that he is not a candidate to undergo creation of a [place] continent ileostomy [place] Refused Liver biopsy 5. Neutropenia, white count of 1.9, in reverse isolation. GIRISH RN Subjective Subjective In SR and was ruled out for Covid. In neutropenic precaution. Refused meds and liver Bx Objective Last 24 Hour Vital Signs Date Time Temp Pulse Resp B/P (MAP) Pulse Ox O2 Delivery O2 Flow Rate FiO2 08/06/20 09:00 Room Air 08/06/20 08:45 133/70 08/06/20 08:00 81 08/06/20 08:00 100.9 103 19 133/70 (91) 97 08/06/20 04:00 97.7 67 20 122/56 (78) 95 08/06/20 04:00 55 08/06/20 00:00 80 08/06/20 00:00 96.5 60 20 157/55 (89) 99 08/05/20 21:00 Room Air 08/05/20 20:00 69 08/05/20 20:00 97.0 60 20 158/68 (98) 99 08/05/20 17:28 145/60 08/05/20 16:00 72 08/05/20 16:00 97.9 60 22 145/60 (88) 97 08/05/20 12:00 48 08/05/20 11:54 48 Intake and Output 08/05/20 08/06/20 19:00 07:00 Intake Total 1523 ml Output Total 500 ml Balance 1023 ml Intake Oral 600 ml IV Total 923 ml Other 500 ml # Voids 6 6 # Bowel Movements 3 11 Laboratory Tests Test 08/06/20 06:57 White Blood Count 2.2 K/UL (4.8-10.8) L Red Blood Count 4.07 M/UL (4.70-6.10) L Hemoglobin 11.4 G/DL (14.2-18.0) L Hematocrit 36.9 % (42.0-52.0) L Mean Corpuscular Volume 91 FL (80-99) Mean Corpuscular Hemoglobin 28.1 PG (27.0-31.0) Mean Corpuscular Hemoglobin Concent 31.0 G/DL (32.0-36.0) L Red Cell Distribution Width 16.7 % (11.6-14.8) H Platelet Count 180 K/UL (150-450) Mean Platelet Volume 6.1 FL (6.5-10.1) L Neutrophils (%) (Auto) 72.3 % (45.0-75.0) Lymphocytes (%) (Auto) 16.3 % (20.0-45.0) L Monocytes (%) (Auto) 6.1 % (1.0-10.0) Eosinophils (%) (Auto) 4.4 % (0.0-3.0) H Basophils (%) (Auto) 0.9 % (0.0-2.0) Sodium Level 142 MMOL/L (136-145) Potassium Level 4.2 MMOL/L (3.5-5.1) Chloride Level 109 MMOL/L (98-107) H Carbon Dioxide Level 26 MMOL/L (21-32) Anion Gap 7 mmol/L (5-15) Blood Urea Nitrogen 8 mg/dL (7-18) Creatinine 0.8 MG/DL (0.55-1.30) Estimat Glomerular Filtration Rate > 60 mL/min (>60) Glucose Level 89 MG/DL (74-106) Calcium Level 9.1 MG/DL (8.5-10.1) Total Bilirubin 0.3 MG/DL (0.2-1.0) Aspartate Amino Transf (AST/SGOT) 34 U/L (15-37) Alanine Aminotransferase (ALT/SGPT) 32 U/L (12-78) Alkaline Phosphatase 249 U/L (46-116) H Total Protein 6.6 G/DL (6.4-8.2) Albumin 2.7 G/DL (3.4-5.0) L Globulin 3.9 g/dL Albumin/Globulin Ratio 0.7 (1.0-2.7) L Amylase Level 117 U/L (25-115) H Lipase 648 U/L (73-393) H Microbiology Date/Time Source Procedure Growth Status 08/04/20 18:40 Stool Clostridium difficile Toxin Assay - Final Complete 08/04/20 10:35 Nasopharynx Coronavirus COVID-19 PCR ([facility]) - Final Complete Objective HEAD AND NECK: No JVD. LUNGS: Clear. CARDIOVASCULAR: Bradycardic S1 and S2 with no gallop. ABDOMEN: Soft and nontender. EXTREMITIES: No pitting edema. Frankie Arevalo MD Aug 06, 2020 10:18
[2020-08-06 12:00] VITALS: BP 136/79
--- NOTE | 2020-08-06 12:45 | General Progress Note ---
Subjective ROS Limited/Unobtainable: No Allergies: Coded Allergies: No Known Allergies (Unverified , 07/29/20) Objective Last 24 Hour Vital Signs Date Time Temp Pulse Resp B/P (MAP) Pulse Ox O2 Delivery O2 Flow Rate FiO2 08/06/20 12:00 123 08/06/20 09:20 99.8 08/06/20 09:00 Room Air 08/06/20 08:45 133/70 08/06/20 08:00 81 08/06/20 08:00 100.9 103 19 133/70 (91) 97 08/06/20 04:00 97.7 67 20 122/56 (78) 95 08/06/20 04:00 55 08/06/20 00:00 80 08/06/20 00:00 96.5 60 20 157/55 (89) 99 08/05/20 21:00 Room Air 08/05/20 20:00 69 08/05/20 20:00 97.0 60 20 158/68 (98) 99 08/05/20 17:28 145/60 08/05/20 16:00 72 08/05/20 16:00 97.9 60 22 145/60 (88) 97 Intake and Output 08/05/20 08/06/20 19:00 07:00 Intake Total 1523 ml 100 ml Output Total 500 ml Balance 1023 ml 100 ml Intake Oral 600 ml IV Total 923 ml 100 ml Other 500 ml # Voids 6 6 # Bowel Movements 3 11 Laboratory Tests 08/06/20 06:57: White Blood Count 2.2L, Red Blood Count 4.07L, Hemoglobin 11.4L, Hematocrit 36.9L, Mean Corpuscular Volume 91, Mean Corpuscular Hemoglobin 28.1, Mean Corpuscular Hemoglobin Concent 31.0L, Red Cell Distribution Width 16.7H, Platelet Count 180, Mean Platelet Volume 6.1L, Neutrophils (%) (Auto) 72.3, Lymphocytes (%) (Auto) 16.3L, Monocytes (%) (Auto) 6.1, Eosinophils (%) (Auto) 4.4H, Basophils (%) (Auto) 0.9, Sodium Level 142, Potassium Level 4.2, Chloride Level 109H, Carbon Dioxide Level 26, Anion Gap 7, Blood Urea Nitrogen 8, Creatinine 0.8, Estimat Glomerular Filtration Rate > 60, Glucose Level 89, Calcium Level 9.1, Total Bilirubin 0.3, Aspartate Amino Transf (AST/SGOT) 34, Alanine Aminotransferase (ALT/SGPT) 32, Alkaline Phosphatase 249H, Total Protein 6.6, Albumin 2.7L, Globulin 3.9, Albumin/Globulin Ratio 0.7L, Amylase Level 117H , Lipase 648H Height (Feet): 5 Height (Inches): 7.00 Weight (Pounds): 188 General Appearance: no apparent distress EENT: normal ENT inspection Neck: supple Cardiovascular: normal rate Respiratory/Chest: lungs clear Abdomen: normal bowel sounds, non tender, soft Extremities: non-tender Assessment/Plan Assessment/Plan: pancreatitis h/o colon CA liver lesions ? mets fu tumor markers>>>elevated CEA pain control colonoscopy t was canceled given patient is now neutropenic and HR was in 30 S cardiology input appreciated>> now on hydralazine fu hem for neutropenia plan colonoscopy for tomorrow Abimael Alston MD Aug 06, 2020 12:45
--- NOTE | 2020-08-06 13:41 | NUR ---
NURSE NOTES: Consent obtained for colonscopy and placed in chart. Pt is AxOx4 and is self-responsible. Pt educated on clear liquid diet for lunch and dinner tonight, and then nothing per mouth after midnight in preparation for colonscopy in AM. Pt verbalized understanding.
[2020-08-06 16:00] VITALS: BP 143/67
[2020-08-06] MEDS ORDERED: Golytely 4L ORAL SCH (16:00)
--- NOTE | 2020-08-06 17:30 | Internal Med Progress Note ---
Subjective Physician Name Antoine Kay Attending Physician Antoine Kay MD Current Medications Medications (Trade) Dose Ordered Sig/Stacy Route PRN Reason Start Time Stop Time Status Last Admin Dose Admin Acetaminophen (Tylenol) 650 mg Q6H PRN ORAL Temp >100.5 07/30/20 00:15 08/29/20 00:14 08/06/20 08:50 Dextrose/ Electrolytes 1,000 ml @ 100 mls/hr Q10H IV 07/30/20 00:15 08/29/20 00:14 08/06/20 11:56 Heparin Sodium (Porcine) (Heparin 5000 units/ml) 5,000 units EVERY 8 HOURS SUBQ 07/30/20 06:00 09/13/20 05:59 08/06/20 13:24 Hydralazine HCl (Apresoline) 25 mg BID ORAL 08/03/20 18:00 11/01/20 17:59 08/06/20 17:12 Lidocaine HCl (Xylocaine 1% 30ml) 30 ml NOW PRN INJ Radiology Procedure 08/05/20 06:45 08/07/20 06:44 Loperamide HCl (Imodium) 2 mg Q4H PRN ORAL Diarrhea 07/30/20 16:00 08/29/20 15:59 08/06/20 08:28 Morphine Sulfate (Morphine Sulfate) 2 mg Q4H PRN IVP FOR MODERATE PAIN 4 TO 6 08/05/20 12:15 08/12/20 12:14 08/05/20 15:18 Morphine Sulfate (Morphine Sulfate) 4 mg Q4H PRN IVP Severe Pain (Pain Scale 7-10) 08/05/20 12:15 08/12/20 12:14 08/06/20 12:04 Ondansetron HCl (Zofran) 4 mg Q4H PRN IVP Nausea & Vomiting 07/30/20 00:15 08/29/20 00:14 08/03/20 15:26 Polyethylene Glycol/ Electrolytes (Golytely) 4,000 ml ONCE ORAL 08/06/20 16:00 08/06/20 23:59 08/06/20 15:34 Sodium Bicarbonate (Sodium Bicarbonate 4%) 1 ml NOW PRN IV Radiology Procedure 08/05/20 06:45 08/07/20 06:44 Zolpidem Tartrate (Ambien) 5 mg HSPRN PRN ORAL Insomnia 08/05/20 10:45 08/12/20 10:44 Allergies: Coded Allergies: No Known Allergies (Unverified , 07/29/20) Subjective awake, alert, responsive, denies any chest pain or abdominal pain, tolerated oral intake. Lipase: 648 , no acute distress. spike fever with T Max 100.8 Objective Last Vital Signs Date Time Temp Pulse Resp B/P (MAP) Pulse Ox O2 Delivery O2 Flow Rate FiO2 08/06/20 17:12 143/67 08/06/20 16:00 97.9 99 18 98 08/06/20 09:00 Room Air Laboratory Tests Test 08/06/20 06:57 White Blood Count 2.2 K/UL (4.8-10.8) L Red Blood Count 4.07 M/UL (4.70-6.10) L Hemoglobin 11.4 G/DL (14.2-18.0) L Hematocrit 36.9 % (42.0-52.0) L Mean Corpuscular Volume 91 FL (80-99) Mean Corpuscular Hemoglobin 28.1 PG (27.0-31.0) Mean Corpuscular Hemoglobin Concent 31.0 G/DL (32.0-36.0) L Red Cell Distribution Width 16.7 % (11.6-14.8) H Platelet Count 180 K/UL (150-450) Mean Platelet Volume 6.1 FL (6.5-10.1) L Neutrophils (%) (Auto) 72.3 % (45.0-75.0) Lymphocytes (%) (Auto) 16.3 % (20.0-45.0) L Monocytes (%) (Auto) 6.1 % (1.0-10.0) Eosinophils (%) (Auto) 4.4 % (0.0-3.0) H Basophils (%) (Auto) 0.9 % (0.0-2.0) Sodium Level 142 MMOL/L (136-145) Potassium Level 4.2 MMOL/L (3.5-5.1) Chloride Level 109 MMOL/L (98-107) H Carbon Dioxide Level 26 MMOL/L (21-32) Anion Gap 7 mmol/L (5-15) Blood Urea Nitrogen 8 mg/dL (7-18) Creatinine 0.8 MG/DL (0.55-1.30) Estimat Glomerular Filtration Rate > 60 mL/min (>60) Glucose Level 89 MG/DL (74-106) Calcium Level 9.1 MG/DL (8.5-10.1) Total Bilirubin 0.3 MG/DL (0.2-1.0) Aspartate Amino Transf (AST/SGOT) 34 U/L (15-37) Alanine Aminotransferase (ALT/SGPT) 32 U/L (12-78) Alkaline Phosphatase 249 U/L (46-116) H Total Protein 6.6 G/DL (6.4-8.2) Albumin 2.7 G/DL (3.4-5.0) L Globulin 3.9 g/dL Albumin/Globulin Ratio 0.7 (1.0-2.7) L Amylase Level 117 U/L (25-115) H Lipase 648 U/L (73-393) H Microbiology Date/Time Source Procedure Growth Status 08/04/20 18:40 Stool Clostridium difficile Toxin Assay - Final Complete 08/04/20 10:35 Nasopharynx Coronavirus COVID-19 PCR ([facility]) - Final Complete Intake and Output 08/05/20 08/06/20 19:00 07:00 Intake Total 1523 ml 100 ml Output Total 500 ml Balance 1023 ml 100 ml Intake Oral 600 ml IV Total 923 ml 100 ml Other 500 ml # Voids 6 6 # Bowel Movements 3 11 Objective General: No acute distress, awake and alert HEENT: NCAT, sclera anicteric, PERRL, EOMI. Neck: Supple, no significant jugular venous distention, Lungs: Good inspiratory effort, clear to auscultation bilaterally, no Wheeze or Rales. Heart: Regular rate and rhythm, normal S1/S2, no murmurs/gallops Abdomen: soft, less Epigastric tender, nondistended. Normoactive bowel sounds. / Rectal: Refused and deferred. Extremities: No Cyanosis , clubbing or edema. Neuro: A&O x 3, Able to move all extremities Skin: warm, no rashes or lesions Psych: Normal mood and affect Assessment/Plan Assessment/Plan Acute pancreatitis History of colon cancer status post resection. Liver masses/lesion possible metastatic disease. MRI of the abdomen with and without contrast: MULTIPLE HEPATIC LESIONS NOTED, ONLY ONE OF WHICH IN THE CAUDATE LOBE APPEARS TO BE A SIMPLE CYST. THE OTHER LESIONS DO NOT MEET MR CRITERIA FOR SIMPLE CYST AND METASTATIC DISEASE SHOULD BE CONSIDERED GIVEN THE PATIENT'S CLINICAL HISTORY. CONSIDER PET/CT FOR CONFIRMATION IF CLINICALLY INDICATED. TINY GALLSTONE. SLIGHT PROMINENCE OF PANCREATIC DUCT BUT NO DISCRETE PANCREATIC LESION SEEN PRESENTLY. RENAL CYSTS. Plan: Tolerated Regular diet gastroenterology = Dr Alston. Colonoscopy scheduled for Monday08/03/20 cancelled due to bradycardia Monitor laboratory. DVT prophylaxis heparin subcu. CODE STATUS is full code. consider PET/CT as outpatient. heme/onc consult=Antoine Banerjee MD Aug 06, 2020 17:30
--- NOTE | 2020-08-06 19:52 | NUR ---
NURSE HAND-OFF REPORT: Important Events on Shift: Colonscopy tomorrow, consents in, NPO at midnight, started on bowel prep Patient Status: Stable Diet: Clears then NPO Pending Orders: Pending Results/Labs: Pending MD notification: Latest Vital Signs: Temperature 97.9 , Pulse 88 , B/P 143 /67 , Respiratory Rate 18 , O2 SAT 98 , Room Air, O2 Flow Rate . Vital Sign Comment: EKG Rhythm: Sinus Rhythm Rhythm change?: N MD Notified?: N - MD Response: Latest Carreon Fall Score: 35 Fall Risk: Medium Risk Safety Measures: Call light Within Reach, Bed Alarm Zone 1, Side Rails Side Rails x2, Bed position Low and Locked. Fall Precautions: Patient Fall Education Report given to Noah WADE.
--- NOTE | 2020-08-06 19:54 | NUR ---
NURSE NOTES: Pt received from MAURO Marin. Pt is resting comfortably in bed and denies any pain. Pt is A/Ox4; Pt is ambulatory and voids independently. Pt has cardiac monitoring SR and asymptomatic. Pt is breathing unlabored on RA and asymptomatic. Pt is taking Golytely for colonoscopy procedure in the morning; pt takes frequent trips to restroom and ambulates well. Pt has JOHNSON 22G patent with dressing dry and intact. Bed is locked and in lowest position with call light within reach. Will continue to monitor.
[2020-08-06 20:00] VITALS: BP 121/62
--- NOTE | 2020-08-06 23:15 | NUR ---
NURSE NOTES: Pt finished golytely solution as ordered. Bowel return is clear. Pt reports no change in condition unrelated to bowel movements. Pt is NPO after midnight. Will continue to monitor.
[2020-08-07] VITALS: BP 126/70
[2020-08-07 04:00] VITALS: BP 112/60
[2020-08-07] MEDS: Heparin 5000 units/ml inj SUBQ SCH (05:02)
--- NOTE | 2020-08-07 06:34 | Hematology/Onc Progress Note ---
Assessment/Plan Assessment/Plan Assessment and recs # MULTIPLE HEPATIC LESIONS NOTED, ONLY ONE OF WHICH IN THE CAUDATE LOBE APPEARS TO BE A SIMPLE CYST. THE OTHER LESIONS DO NOT MEET MR CRITERIA FOR SIMPLE CYST AND METASTATIC DISEASE SHOULD BE CONSIDERED GIVEN THE PATIENT'S CLINICAL HISTORY. CONSIDER PET/CT FOR CONFIRMATION IF CLINICALLY INDICATED. --> DID have prior abdominal surgery 3 years ago with hx of cancer --> to review medical records from before once obtained --> tumor markers have been ordered-->cea 13, ca19.9 of 49 --> colo v egd and biopsy as per gi --> improve underyling cards and neutropenia issues # Pancytopenia/Neutropenia likely due to metastatic malignancy --> hep and hiv neg --> smear reviewed--> does have monocytosis --> likely bone marrow origin--> at some point if persistent may need a bone marrow biopsy -> refusing some labs # Nausea vomiting and diarrhea --> likely due to above # Acute pancreatitis --> ivfs, gi.surg eval # Hypokalemia --> replete withk # History of colon cancer status post resection. # Liver masses/lesion possible metastatic disease. # Bradycardia # Dvt ppx scds Appreciate consultation and dw rn Subjective HEENT: Denies: no symptoms, eye pain, blurred vision, tearing, double vision, ear pain, ear discharge, nose pain, nose congestion, throat pain, throat swelling, mouth pain, mouth swelling, other Cardiovascular: Denies: no symptoms, chest pain, edema, irregular heart rate, lightheadedness, palpitations, syncope, other Respiratory: Denies: no symptoms, cough, shortness of breath, SOB with excertion, SOB at rest, sputum, wheezing, other Gastrointestinal/Abdominal: Denies: no symptoms, abdomen distended, abdominal pain, black stools, tarry stools, blood in stool, constipated, diarrhea, difficu lty swallowing, nausea, poor appetite, poor fluid intake, rectal bleeding, vomiting, other Neurologic/Psychiatric: Denies: no symptoms, anxiety, depressed, emotional problems, headache, numbness, paresthesia, pre-existing deficit, seizure, tingling, tremors, weakness, other Endocrine: Denies: no symptoms, excessive sweating, flushing, intolerance to cold, intolerance to heat, increased hunger, increased thirst, increased urine, unexplained weight gain, unexplained weight loss, other Hematologic/Lymphatic: Denies: no symptoms, anemia, easy bleeding, easy bruising, adenopathy, other Allergies: Coded Allergies: No Known Allergies (Unverified , 07/29/20) Subjective 2/4 continues to have diarrhea, will hold off biopsy, will get pet outpatient, refused tumor marker labs 08/07 labs reviewed, meds noted, for colo potentially today, tumor markers elev Objective Objective Current Medications Medications (Trade) Dose Ordered Sig/Stacy Route PRN Reason Start Time Stop Time Status Last Admin Dose Admin Acetaminophen (Tylenol) 650 mg Q6H PRN ORAL Temp >100.5 07/30/20 00:15 08/29/20 00:14 08/06/20 08:50 Dextrose/ Electrolytes 1,000 ml @ 100 mls/hr Q10H IV 07/30/20 00:15 08/29/20 00:14 08/06/20 21:58 Heparin Sodium (Porcine) (Heparin 5000 units/ml) 5,000 units EVERY 8 HOURS SUBQ 07/30/20 06:00 09/13/20 05:59 08/06/20 13:24 Hydralazine HCl (Apresoline) 25 mg BID ORAL 08/03/20 18:00 11/01/20 17:59 08/06/20 17:12 Lidocaine HCl (Xylocaine 1% 30ml) 30 ml NOW PRN INJ Radiology Procedure 08/05/20 06:45 08/07/20 06:44 Loperamide HCl (Imodium) 2 mg Q4H PRN ORAL Diarrhea 07/30/20 16:00 08/29/20 15:59 08/06/20 08:28 Morphine Sulfate (Morphine Sulfate) 2 mg Q4H PRN IVP FOR MODERATE PAIN 4 TO 6 08/05/20 12:15 08/12/20 12:14 08/05/20 15:18 Morphine Sulfate (Morphine Sulfate) 4 mg Q4H PRN IVP Severe Pain (Pain Scale 7-10) 08/05/20 12:15 08/12/20 12:14 08/06/20 12:04 Ondansetron HCl (Zofran) 4 mg Q4H PRN IVP Nausea & Vomiting 07/30/20 00:15 08/29/20 00:14 08/03/20 15:26 Sodium Bicarbonate (Sodium Bicarbonate 4%) 1 ml NOW PRN IV Radiology Procedure 08/05/20 06:45 08/07/20 06:44 Zolpidem Tartrate (Ambien) 5 mg HSPRN PRN ORAL Insomnia 08/05/20 10:45 08/12/20 10:44 Last 24 Hour Vital Signs Date Time Temp Pulse Resp B/P (MAP) Pulse Ox O2 Delivery O2 Flow Rate FiO2 08/07/20 04:00 61 08/07/20 04:00 98.1 72 19 112/60 (77) 97 08/07/20 00:00 98.3 72 16 126/70 (88) 97 08/07/20 00:00 86 08/06/20 21:00 Room Air 08/06/20 20:00 98.4 80 20 121/62 (81) 97 08/06/20 20:00 91 08/06/20 17:12 143/67 08/06/20 16:00 97.9 99 18 143/67 (92) 98 08/06/20 16:00 88 08/06/20 12:00 123 08/06/20 12:00 98.2 107 19 136/79 (98) 96 08/06/20 09:20 99.8 08/06/20 09:00 Room Air 08/06/20 08:45 133/70 08/06/20 08:00 81 08/06/20 08:00 100.9 103 19 133/70 (91) 97 08/06/20 04:00 97.7 67 20 122/56 (78) 95 08/06/20 04:00 55 08/06/20 00:00 80 08/06/20 00:00 96.5 60 20 157/55 (89) 99 08/05/20 21:00 Room Air 08/05/20 20:00 69 08/05/20 20:00 97.0 60 20 158/68 (98) 99 08/05/20 17:28 145/60 08/05/20 16:00 72 08/05/20 16:00 97.9 60 22 145/60 (88) 97 08/05/20 12:00 48 08/05/20 11:54 48 08/05/20 09:49 122/50 08/05/20 09:00 Room Air 08/05/20 08:00 97.1 67 23 122/50 (74) 97 08/05/20 08:00 69 Intake and Output 08/06/20 08/07/20 19:00 07:00 Intake Total 1000 ml 600 ml Output Total 300 ml Balance 1000 ml 300 ml IV Total 1000 ml Other 600 ml Other 300 ml # Voids 5 Labs Test 08/04/20 06:42 08/06/20 06:57 White Blood Count 2.7 K/UL (4.8-10.8) 2.2 K/UL (4.8-10.8) Red Blood Count 3.46 M/UL (4.70-6.10) 4.07 M/UL (4.70-6.10) Hemoglobin 9.9 G/DL (14.2-18.0) 11.4 G/DL (14.2-18.0) Hematocrit 30.6 % (42.0-52.0) 36.9 % (42.0-52.0) Mean Corpuscular Volume 89 FL (80-99) 91 FL (80-99) Mean Corpuscular Hemoglobin 28.7 PG (27.0-31.0) 28.1 PG (27.0-31.0) Mean Corpuscular Hemoglobin Concent 32.4 G/DL (32.0-36.0) 31.0 G/DL (32.0-36.0) Red Cell Distribution Width 16.2 % (11.6-14.8) 16.7 % (11.6-14.8) Platelet Count 145 K/UL (150-450) 180 K/UL (150-450) Mean Platelet Volume 6.1 FL (6.5-10.1) 6.1 FL (6.5-10.1) Neutrophils (%) (Auto) % (45.0-75.0) 72.3 % (45.0-75.0) Lymphocytes (%) (Auto) % (20.0-45.0) 16.3 % (20.0-45.0) Monocytes (%) (Auto) % (1.0-10.0) 6.1 % (1.0-10.0) Eosinophils (%) (Auto) % (0.0-3.0) 4.4 % (0.0-3.0) Basophils (%) (Auto) % (0.0-2.0) 0.9 % (0.0-2.0) Differential Total Cells Counted 100 Neutrophils % (Manual) 58 % (45-75) Lymphocytes % (Manual) 21 % (20-45) Monocytes % (Manual) 16 % (1-10) Eosinophils % (Manual) 5 % (0-3) Basophils % (Manual) 0 % (0-2) Band Neutrophils 0 % (0-8) Platelet Estimate Decreased Platelet Morphology Normal Hypochromasia 1+ Anisocytosis 1+ Sodium Level 141 MMOL/L (136-145) 142 MMOL/L (136-145) Potassium Level 4.2 MMOL/L (3.5-5.1) 4.2 MMOL/L (3.5-5.1) Chloride Level 108 MMOL/L (98-107) 109 MMOL/L (98-107) Carbon Dioxide Level 27 MMOL/L (21-32) 26 MMOL/L (21-32) Anion Gap 6 mmol/L (5-15) 7 mmol/L (5-15) Blood Urea Nitrogen 7 mg/dL (7-18) 8 mg/dL (7-18) Creatinine 0.8 MG/DL (0.55-1.30) 0.8 MG/DL (0.55-1.30) Estimat Glomerular Filtration Rate > 60 mL/min (>60) > 60 mL/min (>60) Glucose Level 105 MG/DL (74-106) 89 MG/DL (74-106) Calcium Level 8.5 MG/DL (8.5-10.1) 9.1 MG/DL (8.5-10.1) Total Bilirubin 0.4 MG/DL (0.2-1.0) 0.3 MG/DL (0.2-1.0) Aspartate Amino Transf (AST/SGOT) 38 U/L (15-37) 34 U/L (15-37) Alanine Aminotransferase (ALT/SGPT) 23 U/L (12-78) 32 U/L (12-78) Alkaline Phosphatase 201 U/L (46-116) 249 U/L (46-116) Total Protein 5.5 G/DL (6.4-8.2) 6.6 G/DL (6.4-8.2) Albumin 2.1 G/DL (3.4-5.0) 2.7 G/DL (3.4-5.0) Globulin 3.4 g/dL 3.9 g/dL Albumin/Globulin Ratio 0.6 (1.0-2.7) 0.7 (1.0-2.7) Amylase Level 113 U/L (25-115) 117 U/L (25-115) Lipase 714 U/L (73-393) 648 U/L (73-393) Thyroid Stimulating Hormone (TSH) 0.613 uiU/mL (0.358-3.740) Free Thyroxine 1.08 NG/DL (0.76-1.46) Height (Feet): 5 Height (Inches): 5.00 Weight (Pounds): 191 Objective Objective General: No acute distress, awake and alert HEENT: NCAT, sclera anicteric, PERRL, EOMI. Neck: Supple, no significant jugular venous distention, Lungs: Good inspiratory effort, clear to auscultation bilaterally, no Wheeze or Rales. Heart: Regular rate and rhythm, normal S1/S2, no murmurs/gallops Abdomen: soft, less Epigastric tender, nondistended. Normoactive bowel sounds. / Rectal: Refused and deferred. Extremities: No Cyanosis , clubbing or edema. Neuro: A&O x 3, Able to move all extremities Skin: warm, no rashes or lesions Psych: Normal mood and affect Jakob Ferrer MD Aug 07, 2020 06:34
--- NOTE | 2020-08-07 07:17 | NUR ---
NURSE HAND-OFF REPORT: Important Events on Shift:Pt received scheduled medications. Held heparin prior to procedure Patient Status: Stable Diet: NPO Pending Orders: Pending Results/Labs:AM Labs Pending MD notification: Latest Vital Signs: Temperature 98.1 , Pulse 72 , B/P 112 /60 , Respiratory Rate 19 , O2 SAT 97 , Room Air, O2 Flow Rate . Vital Sign Comment: VSS EKG Rhythm: Sinus Rhythm Rhythm change?: N MD Notified?: N - MD Response: Latest Carreon Fall Score: 35 Fall Risk: Medium Risk Safety Measures: Call light Within Reach, Bed Alarm Zone 1, Side Rails Side Rails x2, Bed position Low and Locked. Fall Precautions: Patient Fall Education Report given to MAURO Marin.
--- NOTE | 2020-08-07 07:27 | NUR ---
NURSE NOTES: Report received from Álvaro WADE. Pt is AxOx4, not in distress. Bowel prep done overnight with clear return. Pt remains NPO, education reinforced and pt verbalized understanding. PIV on right upper arm patent and infusing D5 1/2 NS + 20KCL @ 100cc/hr. Pt is ambulatory and continent. Bed low and locked, siderails up x2, call light placed within reach and instructed to call nurse for assistance. Will continue to monitor.
--- NOTE | 2020-08-07 08:06 | NUR ---
NURSE NOTES: Pt signed out against medical advice. Said he wanted to go to another hospital. Notified primary MD. Addendum: 08/07/20 at 1003 by Tania Mitchell RN PIV discontinued.
--- NOTE | 2020-08-07 13:29 | Cardiac Electrophysiology PN ---
Assessment/Plan Assessment/Plan 1. Profound bradycardia with the heart rate in the 30s off of any AV julius blocking agents and the patient received atropine. Better on hydralazine 25 bid. Echo EF 55%. Ruled out for Covid 2. Hypertension. On hydralazine 25 mg b.i.d. 3. Acute pancreatitis with high lipase. Follow up with Dr. Alston. 4. History of colon cancer with now liver lesions, questionable metastasis. Follow up tumor markers. Colonoscopy was rescheduled as the patient's heart rate was in the 30s. The patient was also evaluated by Dr. Kenn Dalton who, based on age alone, felt that he is not a candidate to undergo creation of a Calix continent ileostomy [place] Refused Liver biopsy 5. Neutropenia, white count of 1.9, in reverse isolation. GIRISH RN Signing out AMA to go to another hospital Subjective Subjective Seen earlier In SR overnight and was ruled out for Covid. In neutropenic precaution. Refused meds and liver Bx Signing out AMA Objective Last 24 Hour Vital Signs Date Time Temp Pulse Resp B/P (MAP) Pulse Ox O2 Delivery O2 Flow Rate FiO2 08/07/20 04:00 61 08/07/20 04:00 98.1 72 19 112/60 (77) 97 08/07/20 00:00 98.3 72 16 126/70 (88) 97 08/07/20 00:00 86 08/06/20 21:00 Room Air 08/06/20 20:00 98.4 80 20 121/62 (81) 97 08/06/20 20:00 91 08/06/20 17:12 143/67 08/06/20 16:00 97.9 99 18 143/67 (92) 98 08/06/20 16:00 88 Intake and Output 08/06/20 08/07/20 19:00 07:00 Intake Total 1000 ml 600 ml Output Total 800 ml Balance 1000 ml -200 ml IV Total 1000 ml Other 600 ml Other 800 ml # Voids 5 # Bowel Movements 6 Microbiology Date/Time Source Procedure Growth Status 08/04/20 18:40 Stool Clostridium difficile Toxin Assay - Final Complete Objective HEAD AND NECK: No JVD. LUNGS: Clear. CARDIOVASCULAR: Bradycardic S1 and S2 with no gallop. ABDOMEN: Soft and nontender. EXTREMITIES: No pitting edema. Frankie Arevalo MD Aug 07, 2020 13:29
--- NOTE | 2020-08-07 14:21 | Surgery Progress Note ---
Surgery Progress Note Subjective Additional Comments late entry somewhat upset today wants to go to another hospital no n/v diarrhea labs explained plans to leave [facility] Objective Last 24 Hour Vital Signs Date Time Temp Pulse Resp B/P (MAP) Pulse Ox O2 Delivery O2 Flow Rate FiO2 08/07/20 04:00 61 08/07/20 04:00 98.1 72 19 112/60 (77) 97 08/07/20 00:00 98.3 72 16 126/70 (88) 97 08/07/20 00:00 86 08/06/20 21:00 Room Air 08/06/20 20:00 98.4 80 20 121/62 (81) 97 08/06/20 20:00 91 08/06/20 17:12 143/67 08/06/20 16:00 97.9 99 18 143/67 (92) 98 08/06/20 16:00 88 I&O Intake and Output 08/06/20 08/07/20 19:00 07:00 Intake Total 1000 ml 600 ml Output Total 800 ml Balance 1000 ml -200 ml IV Total 1000 ml Other 600 ml Other 800 ml # Voids 5 # Bowel Movements 6 Cardiovascular: RSR Respiratory: clear Abdomen: soft, non-tender, present bowel sounds Extremities: no edema, no tenderness, no cyanosis Plan Problems: (1) Acute pancreatitis Assessment & Plan: 75-year-old male with pancreatitis. No EtOH history. Seems to be having intermittent episodes of pancreatitis as states that the symptoms not as first time and is not a pancreatitis in the past. States that he was told potentially in the past he may have pancreatic cancer but is unaware. Does not have any of his medical records with him and is a poor historian in the details. Elevated lipase trending down with IV fluids. Pain improving. Tolerating diet. No acute surgical intervention planned at this time. Conservative management of medical acute pancreatitis. lipase improving pain resolved tolerating diet liver mass noted plans to go to another hospital for work up There are several lesions identified in the liver. There is only one lesion in the caudate lobe which demonstrates typical appearance of a simple cyst. It is circumscribed with smooth margin and fluid intensity on all sequences without enhancement. The other lesions identified in segments 6 and 7 of the right lobe of the liver are not a simple cyst by MR criteria. No fluid intensity noted on T2 images. They show diminished enhancement compared to adjacent liver parenchyma on postcontrast images. These vary in size with a few which are barely perceptible 2 largest measuring 1.8 cm in segment 6. With the patient's history, these are suspicious for metastatic disease. Slight scalloping of the lateral margin of the right lobe of the liver noted and there is suggestion of slight asymmetric enhancement of the underlying parenchyma noted. Spleen is homogeneous. Tiny gallstone noted layering in the gallbladder. There is no intrahepatic or extrahepatic ductal dilatation. There is slight prominence of the pancreatic duct near the neck region but no discrete parenchymal pancreatic lesion identified. Adrenals are normal. There are multiple bilateral renal cysts. There is no signs of bowel distention. No ascites demonstrated. There is no adenopathy noted. Visualized portions of the lumbar spine appear unremarkable. IMPRESSION: MULTIPLE HEPATIC LESIONS NOTED, ONLY ONE OF WHICH IN THE CAUDATE LOBE APPEARS TO BE A SIMPLE CYST. THE OTHER LESIONS DO NOT MEET MR CRITERIA FOR SIMPLE CYST AND METASTATIC DISEASE SHOULD BE CONSIDERED GIVEN THE PATIENT'S CLINICAL HISTORY. CONSIDER PET/CT FOR CONFIRMATION IF CLINICALLY INDICATED. TINY GALLSTONE. SLIGHT PROMINENCE OF PANCREATIC DUCT BUT NO DISCRETE PANCREATIC LESION SEEN PRESENTLY. RENAL CYSTS. (2) Abdominal pain Assessment & Plan: Patient complaining of abdominal pain likely related to pancreatitis also complaining of pain with multiple episodes of diarrhea and some anal pain. Patient with history of colon cancer status post subtotal colectomy with what seems to be a J-pouch having persistent diarrhea multiple episodes a day followed by potential incontinence as well described by patient. Afebrile hemodynamic stable otherwise okay. Abdominal exam fairly benign. Prior incisions noted well-healed. Patient is interested in having a evaluation for a continent ileostomy. Dr. Kenn Dalton will evaluate patient as patient has researched him prior and has come to this facility to be seen by him as well. CT scan reviewed. Patient has multiple liver lesions that are concerning for potential metastatic disease. MRI ordered. Will need further work-up and management which can be done in outpatient setting by patient's PCP and oncologist once patient's pancreatitis is improved. Thank you will follow with recommendations Mild dependent atelectasis noted in both lung bases. There are several low densities identified in the caudate and right lobe of the liver. A few are circumscribed and low density resembling cysts but there are several in segment 6 and segment 7 of the liver which are not cystic. Patient does have known history of colon cancer and metastatic hepatic lesions is suspected. There is some low-density scalloping of the lateral margin right lobe of liver on images 22-25 which may reflect serosal disease as well. The spleen is homogeneous. Gallbladder is without sludge or stone and there is no wall thickening. Pancreas is mostly homogeneous. There is a focus of coarse calcification at the pancreatic head. Adrenals are normal in morphology. Multiple bilateral exophytic cysts of the kidneys noted. Postoperative changes noted near the GE junction. Small bowel loops are nondistended. Patient is status post colectomy. Anastomotic sutures noted in the region of the rectum. There is some soft tissue thickening in the presacral space most likely postoperative changes but focal recurrent tumor cannot be excluded. The appendix is not visualized. There is no free fluid or free air. No pathologic adenopathy demonstrated. Urinary bladder appears unremarkable. There is no suspicious superficial soft tissue or osseous abnormality. IMPRESSION: MULTIPLE LOW-DENSITY LESIONS IN THE LIVER, SOME OF WHICH ARE NOT SIMPLE CYSTS. WITH HISTORY OF COLON CANCER, METASTATIC HEPATIC LESIONS SUSPECTED. COARSE CALCIFICATION AT THE PANCREATIC HEAD. QUESTION HISTORY OF OLD PANCREATITIS. RENAL CYSTS. POSTOPERATIVE CHANGES NEAR THE GE JUNCTION. ALSO APPARENT COLECTOMY. SOME SOFT TISSUE THICKENING IN THE PRESACRAL SPACE MOST LIKELY POSTOPERATIVE CHANGES BUT FOCAL RECURRENT TUMOR CANNOT BE EXCLUDED. (3) Nausea vomiting and diarrhea Assessment & Plan: d/c planning outpatient f/u for oncology work up at [place] with his oncologist Alfredo Phillip Aug 07, 2020 14:21
--- NOTE | 2020-08-07 15:45 | Internal Med Progress Note ---
Subjective Physician Name Antoine Kay Attending Physician Antoine Kay MD Allergies: Coded Allergies: No Known Allergies (Unverified , 07/29/20) Subjective awake, alert, responsive, denies any chest pain or abdominal pain, afebrile. Objective Last Vital Signs Date Time Temp Pulse Resp B/P (MAP) Pulse Ox O2 Delivery O2 Flow Rate FiO2 08/07/20 04:00 61 08/07/20 04:00 98.1 19 112/60 (77) 97 08/06/20 21:00 Room Air Microbiology Date/Time Source Procedure Growth Status 08/04/20 18:40 Stool Clostridium difficile Toxin Assay - Final Complete Intake and Output 08/06/20 08/07/20 19:00 07:00 Intake Total 1000 ml 600 ml Output Total 800 ml Balance 1000 ml -200 ml IV Total 1000 ml Other 600 ml Other 800 ml # Voids 5 # Bowel Movements 6 Objective General: No acute distress, awake and alert HEENT: NCAT, sclera anicteric, PERRL, EOMI. Neck: Supple, no significant jugular venous distention, Lungs: Good inspiratory effort, clear to auscultation bilaterally, no Wheeze or Rales. Heart: Regular rate and rhythm, normal S1/S2, no murmurs/gallops Abdomen: soft, less Epigastric tender, nondistended. Normoactive bowel sounds. / Rectal: Refused and deferred. Extremities: No Cyanosis , clubbing or edema. Neuro: A&O x 3, Able to move all extremities Skin: warm, no rashes or lesions Psych: Normal mood and affect Assessment/Plan Assessment/Plan Acute pancreatitis History of colon cancer status post resection. Liver masses/lesion possible metastatic disease. Plan: Tolerated Regular diet gastroenterology = Dr Alston. Colonoscopy scheduled for Monday08/03/20 cancelled due to bradycardia Monitor laboratory. DVT prophylaxis heparin subcu. CODE STATUS is full code. consider PET/CT as outpatient. heme/onc consult=Dr Ferrer Signed AMA. Antoine Kay MD Aug 07, 2020 15:45
--- NOTE | 2020-08-11 11:19 | Discharge Summary ---
Discharge Summary Discharge Summary _ DATE OF ADMISSION: 07/29/2020 DATE OF DISCHARGE: 08/07/2020 Patient left AGAINST MEDICAL ADVICE REASON FOR ADMISSION: 75 years old male with past medical history significant for colon cancer chronic, status post resection 5 years ago, chronic diarrhea, presented to the hospital complaining about abdominal pain , associated with the vomiting , nausea and diarrhea. CT scan of the abdomen and pelvis revealed multiple low-density lesions in the liver , some of which were not simple cysts; with history of colon cancer, metastatic hepatic lesions were suspected. Coarse calcification in the pancreatic head -questioned history of old pancreatitis. Lipase 1927 . Shortly after initial evaluation in emergency department patient admitted to the hospital with acute pancreatitis. CONSULTANTS: homemaking rehabilitation consultant Dr. Barbosa GI specialist Dr. Dr. Alston canine enforcement officer/oncologist Dr. Ferrer general surgery Dr. Phillip surgery [facility] COURSE: Patient admitted to medical surgical floor and nitially was kept n.p.o. except medication and started on the IV hydration Pain management was addressed. Symptomatic treatment provided. GI and general surgery closely followed.. Daily MRI of the abdomen revealed multiply hepatic lesions. Metastatic disease should be considered, given patient clinical history. Slight prominence of pancreatic duct, but no discrete pancreatic lesion. Lipase and amylase were followed. Lipase trended down to 648, amylase remained slightly elevated , but also trended down from initial 147 down to 117. Stool for C. difficile was negative. Patient undergone evaluation by surgeon , specializing in creation of continent ileostomy reservoir. Surgeon felt that the patient was not a candidate to undergo creation of a Calix continent ileostomy reservoir due to his age. Colonoscopy was planned for 08/03, but was canceled since patient was neutropenic and heart rate in 30th. Subsequently cardiology and hematology/oncology consults was requested. Echocardiogram demonstrated preserved ejection fraction of 55%. Patient was off any AV julius blocking agents. Patient received atropine. Heart rate stabilized Blood pressure was managed with hydralazine, and remained stable. COVID-19 by PCR was negative. Oncologist followed. Tumor markers were elevated: CEA 13, CA 19-9 49. Patient refused liver biopsy Colonoscopy initially was canceled as mentioned above and was planned for another day . Hepatitis panel was negative. HIV test was nonreactive. Peripheral smear showed monocytosis. Bingo Caller recommended at some point to have bone marrow biopsy. Patient refused some of the labs and decided to go to another hospital for further work-up. The risks and consequences of signing AGAINST MEDICAL ADVICE were discussed with patient in detail. Patient verbalized understanding, nevertheless signed AMA form and left. FINAL DIAGNOSES: Acute abdominal pain most likely secondary to acute pancreatitis Liver l masses, possibly metastatic disease elevated tumor marker Profound bradycardia -resolved Pancytopenia , likely due to metastatic malignancy Hypertension History of colon cancer , status post resection I have been assigned to dictate discharge summary for this account. I was not involved in the patient's management. Kaylie Cline NP Aug 11, 2020 11:19
--- NOTE | 2020-08-12 02:16 | Cardiology Report ---
APPROVED REPORT EKG Measurement Heart [id number] <Conclusion> Sinus bradycardia Nonspecific intraventricular conduction delay Borderline ECG
== END 2020-08-07 08:00 | disposition left against medical advice (07) | DRG 439 ==
LOC: EMR 20:06 → 4E 21:50 → EDBEDREQ 22:07 → 4E 22:28 → 2E 08-03 13:06
DX: K85.90 Acute pancreatitis without necrosis or infection, unspecified (principal); C78.7 Secondary malignant neoplasm of liver and intrahepatic bile duct; D61.818 Other pancytopenia; Z85.038 Personal history of other malignant neoplasm of large intestine; Z90.49 Acquired absence of other specified parts of digestive tract; Z79.899 Other long term (current) drug therapy; E87.6 Hypokalemia; R00.1 Bradycardia, unspecified; N28.1 Cyst of kidney, acquired; I10 Essential (primary) hypertension
CPT/HCPCS: 36415; 71045; 74018; 74177; 74183; 80048; 80053; 80061; 81003; 82150; 82378; 83690; 83735; 84100; 84439; 84443; 85007; 85025; 85610; 85730; 87324; 93005; 93306; 96361; 96374; 96375; 96376; 99285; A9585; J2405; J2765; J7030